=== PATIENT | male | born 1975 | race Caucasian/White ===

== ENCOUNTER 2021-01-10 00:27 | Emergency (ER) | payer SELFPAY ==
[2021-01-10 00:58] LABS: Basophils % 0.5 % (0-1.3); Hematocrit 39.7 % (39.6-49.0); Lymphocytes % 22.7 % (15.3-44.8); MPV 8.8 fL (7.6-11.3); RBC Red Blood Cell Count 4.35 M/uL (4.33-5.43)
[2021-01-10 01:00] LABS: Protime INR 1.02
[2021-01-10 01:16] LABS: ALT/SGPT 65 U/L (12-78); AST/SGOT 106 U/L (15-37); Albumin 3.4 g/dL (3.4-5.0); Alkaline Phosphatase 76 U/L (45-117); BUN Blood Urea Nitrogen 14 mg/dL (7-18); Bicarbonate 30 mmol/L (21-32); Bilirubin Direct 0.2 mg/dL (0-0.2); Bilirubin Total 0.8 mg/dL (0.2-1.0); Glucose Level 124 mg/dL (74-106); Lipase 128 U/L (73-393); Potassium 3.9 mmol/L (3.5-5.1); Protein, Total 7.2 g/dL (6.4-8.2); Sodium Level 135 mmol/L (136-145)
[2021-01-10 01:32] LABS: Barbiturates NEGATIVE (NEGATIVE); Benzodiazepines NEGATIVE (NEGATIVE); Cocaine NEGATIVE (NEGATIVE); METHAMPHETAM NEGATIVE (NEGATIVE); Methadone NEGATIVE (NEGATIVE); Opiates NEGATIVE (NEGATIVE); Phencyclidine NEGATIVE (NEGATIVE); THC Cannibis NEGATIVE (NEGATIVE)
--- NOTE | 2021-01-10 01:32 | EDPHYS ---
Physician Documentation [facility] Name: Bob Cuenca Age: 45 yrs Sex: Male : 1975 Arrival Date: 01/10/2021 Time: 00:29 Bed 8 Private MD: CARLEE Physician Tristan El HPI: 01/10 01:23 This 45 yrs old Male presents to ER via EMS with complaints of vomiting and saray possible overdose. 01:23 The patient presents to the emergency department with nausea, vomiting, that is saray intermittent. Onset: The symptoms/episode began/occurred just prior to arrival. Possible causes: unknown. The symptoms are aggravated by nothing. The symptoms are alleviated by nothing. psych hx. Severity of symptoms: At their worst the symptoms were mild in the emergency department the symptoms are unchanged. The patient has experienced similar episodes in the past, a few times. Historical: - Allergies: 01:15 No Known Allergies; ea - PMHx: 01:15 Bipolar disorder; ea - PSHx: 01:15 back surgery; ea - Immunization history:: Adult Immunizations unknown. - Social history:: Smoking status: unknown. ROS: 01:26 Constitutional: Negative for fever, chills, and weight loss, Eyes: Negative for injury, saray pain, redness, and discharge, ENT: Negative for injury, pain, and discharge, Neck: Negative for injury, pain, and swelling, Cardiovascular: Negative for chest pain, palpitations, and edema, Respiratory: Negative for shortness of breath, cough, wheezing, and pleuritic chest pain, Back: Negative for injury and pain, : Negative for injury, bleeding, discharge, and swelling, MS/Extremity: Negative for injury and deformity, Skin: Negative for injury, rash, and discoloration, Neuro: Negative for headache, weakness, numbness, tingling, and seizure, Psych: Negative for depression, anxiety, suicide ideation, homicidal ideation, and hallucinations, Allergy/Immunology: Negative for hives, rash, and allergies, Endocrine: Negative for neck swelling, polydipsia, polyuria, polyphagia, and marked weight changes, Hematologic/Lymphatic: Negative for swollen nodes, abnormal bleeding, and unusual bruising. 01:26 Abdomen/GI: Positive for nausea and vomiting. Exam: :26 Constitutional: This is a well developed, well nourished patient who is awake, alert, saray and in no acute distress. Head/Face: Normocephalic, atraumatic. Eyes: Pupils equal round and reactive to light, extra-ocular motions intact. Lids and lashes normal. Conjunctiva and sclera are non-icteric and not injected. Cornea within normal limits. Periorbital areas with no swelling, redness, or edema. ENT: Nares patent. No nasal discharge, no septal abnormalities noted. Tympanic membranes are normal and external auditory canals are clear. Oropharynx with no redness, swelling, or masses, exudates, or evidence of obstruction, uvula midline. Mucous membranes moist. Neck: Trachea midline, no thyromegaly or masses palpated, and no cervical lymphadenopathy. Supple, full range of motion without nuchal rigidity, or vertebral point tenderness. No Meningismus. Chest/axilla: Normal chest wall appearance and motion. Nontender with no deformity. No lesions are appreciated. Cardiovascular: Regular rate and rhythm with a normal S1 and S2. No gallops, murmurs, or rubs. Normal PMI, no JVD. No pulse deficits. Respiratory: Lungs have equal breath sounds bilaterally, clear to auscultation and percussion. No rales, rhonchi or wheezes noted. No increased work of breathing, no retractions or nasal flaring. Abdomen/GI: Soft, non-tender, with normal bowel sounds. No distension or tympany. No guarding or rebound. No evidence of tenderness throughout. Back: No spinal tenderness. No costovertebral tenderness. Full range of motion. Skin: Warm, dry with normal turgor. Normal color with no rashes, no lesions, and no evidence of cellulitis. MS/ Extremity: Pulses equal, no cyanosis. Neurovascular intact. Full, normal range of motion. Neuro: Awake and alert, GCS 15, oriented to person, place, time, and situation. Cranial nerves II-XII grossly intact. Motor strength 5/5 in all extremities. Sensory grossly intact. Cerebellar exam normal. Normal gait. Psych: Awake, alert, with orientation to person, place and time. Behavior, mood, and affect are within normal limits. 01:26 : Exam negative for acute changes, CVA tenderness, is absent, Male external genitalia: normal, Bladder: is normal. Vital Signs: 01:37 BP 141 / 91; Pulse 71; Resp 16; Temp 97.8; Pulse Ox 98% ; ea 02:40 BP 125 / 70; Pulse 70; Resp 16; Pulse Ox 99% ; rr5 MDM: 00:43 Patient medically screened. saray 01:28 Differential diagnosis: Nonspecific abd pain, gastritis, viral gastroenteritis, saray gastroenteritis. Differential Diagnosis altered mental status. Data reviewed: vital signs, nurses notes, lab test result(s), EKG. Data interpreted: youth nutritional monitor: rate is 85 beats/min, rhythm is regular, Pulse oximetry: on room air is 100 %. Test interpretation: by ED physician or midlevel provider: ECG. Counseling: I had a detailed discussion with the patient and/or guardian regarding: the historical points, exam findings, and any diagnostic results supporting the discharge/admit diagnosis, lab results. 01/10 00:40 Order name: Acetaminophen 01/10 00:40 Order name: Basic Metabolic Panel 01/10 00:40 Order name: CBC with Diff; Complete Time: 01:07 01/10 00:40 Order name: ETOH Level; Complete Time: 01:30 01/10 00:40 Order name: Hepatic Function 01/10 00:40 Order name: PT-INR; Complete Time: 01:07 01/10 00:40 Order name: Ptt, Activated; Complete Time: 01:07 01/10 00:40 Order name: Salicylate; Complete Time: 01:30 01/10 00:40 Order name: Urine Drug Screen; Complete Time: 01:41 01/10 00:52 Order name: Lipase [facility] 01/10 01:10 Order name: Urine Dipstick--Ancillary (enter results) tt3 01/10 02:03 Order name: Troponin (Emerg Dept Use Only) [facility] 01/10 00:40 Order name: EKG; Complete Time: 00:41 01/10 00:40 Order name: EKG - Nurse/Tech; Complete Time: 01:16 ea 01/10 00:40 Order name: IV Saline Lock; Complete Time: :16 ea 01/10 00:40 Order name: Labs collected and sent; Complete Time: 01:16 ea 01/10 00:40 Order name: Urine Dipstick-Ancillary (obtain specimen); Complete Time: 01:16 ea Administered Medications: 01:36 Drug: NS 0.9% 1000 ml Route: IV; Rate: 1 bolus; Site: right forearm; ea 02:40 Follow up: Response: No adverse reaction; IV Status: Completed infusion; IV Intake: rr5 1000ml Disposition: 01/10/21 01:31 Discharged to Home. Impression: Bipolar disorder. - Condition is Stable. - Discharge Instructions: Bipolar Disorder, Nausea and Vomiting, Adult. - Prescriptions for Zofran 4 mg Oral Tablet - take 1 tablet by ORAL route every 12 hours As needed; 14 tablet. - Medication Reconciliation Form, Thank You Letter, Antibiotic Education, Prescription Opioid Use form. - Follow up: Private Physician; When: 2 - 3 days; Reason: Recheck today's complaints, Continuance of care, Re-evaluation by your physician. Follow up: Brijesh Mejia; When: 2 - 3 days; Reason: Recheck today's complaints, Continuance of care, Re-evaluation by your physician. - Problem is new. - Symptoms have improved. Signatures: Dispatcher [employer] [facility] Te Suárez RN RN sg Anderson, Corey, MD MD cha Antunez, Elena, RN RN ea Roque, Raymond RN rr5 Corrections: (The following items were deleted from the chart) 00:52 00:43 LIPASE+C.LAB.BRZ ordered. [facility] 02:03 01:42 TROPONIN (EMERG DEPT USE ONLY)+C.LAB.BRZ ordered. [facility] 02:47 01:31 01/10/2021 01:31 Discharged to Home. Impression: Bipolar disorder. Condition is sg Stable. Discharge Instructions: Bipolar Disorder, Nausea and Vomiting, Adult. Prescriptions for Zofran 4 mg Oral Tablet - take 1 tablet by ORAL route every 12 hours As needed; 14 tablet. and Forms are Medication Reconciliation Form, Thank You Letter, Antibiotic Education, Prescription Opioid Use. Follow up: Private Physician; When: 2 - 3 days; Reason: Recheck today's complaints, Continuance of care, Re-evaluation by your physician. Follow up: Brijesh Mejia; When: 2 - 3 days; Reason: Recheck today's complaints, Continuance of care, Re-evaluation by your physician. Problem is new. Symptoms have improved. saray
--- NOTE | 2021-01-10 01:32 | ER ---
Nurse's Notes [facility] Name: Bob Cuenca Age: 45 yrs Sex: Male : 1975 Arrival Date: 01/10/2021 Time: 00:29 Bed 8 Private MD: Diagnosis: Bipolar disorder Presentation: 01/10 00:40 Chief complaint: EMS states: Toned out to pt's apartment, friend called reported pt was ea complaining of nausea, vomiting and confusion. Friend reported pt might have taken an uknown substance, pt was unable to recall the type of drug he took. Coronavirus screen: At this time, the client does not indicate any symptoms associated with coronavirus-19. Ebola Screen: No symptoms or risks identified at this time. Initial Sepsis Screen: Does the patient meet any 2 criteria? No. Patient's initial sepsis screen is negative. Does the patient have a suspected source of infection? No. Patient's initial sepsis screen is negative. Risk Assessment: Do you want to hurt yourself or someone else? Patient reports no desire to harm self or others. Onset of symptoms was January 10, 2021. 00:40 Method Of Arrival: EMS: [facility] ea 00:40 Acuity: MALIA 3 ea Historical: - Allergies: 01:15 No Known Allergies; ea - PMHx: 01:15 Bipolar disorder; ea - PSHx: 01:15 back surgery; ea - Immunization history:: Adult Immunizations unknown. - Social history:: Smoking status: unknown. Screenin:43 Abuse screen: Denies threats or abuse. Nutritional screening: No deficits noted. ea Tuberculosis screening: No symptoms or risk factors identified. Fall Risk IV access (20 points). Assessment: 01:15 General: Appears in no apparent distress. Behavior is cooperative, restless. Pain: ea Complains of pain in back. Neuro: Level of Consciousness is awake, alert, obeys commands, Oriented to person, place, time. Cardiovascular: Patient's skin is warm and dry. Respiratory: Airway is patent Respiratory effort is even, unlabored, Respiratory pattern is regular, symmetrical. Derm: Skin is pink, warm \T\ dry. 02:00 Reassessment: Patient appears in no apparent distress at this time. resting eyes closed rr5 breathing spontaneously at room air. 02:45 Reassessment: Patient appears in no apparent distress at this time. Patient is alert, rr5 oriented x 3, equal unlabored respirations, skin warm/dry/pink. discharge instruction given and explained to director social without complaints made. Vital Signs: 01:37 BP 141 / 91; Pulse 71; Resp 16; Temp 97.8; Pulse Ox 98% ; ea 02:40 BP 125 / 70; Pulse 70; Resp 16; Pulse Ox 99% ; rr5 ED Course: 00:29 Patient arrived in ED. sg 00:42 Triage completed. ea 00:43 Tristan El MD is Attending Physician. saray 00:43 Inserted saline lock: 20 gauge in right forearm, using aseptic technique. Blood ea collected. 00:43 Arm band placed on right wrist. Patient placed in an exam room, on a stretcher, on ea pulse oximetry. 00:44 Serenity Kelly, RN is Primary Nurse. ea 00:44 Patient has correct armband on for positive identification. Bed in low position. Call ea light in reach. Side rails up X2. 01:31 Brijesh Mejia MD is Referral Physician. saray 02:45 No provider procedures requiring assistance completed. IV discontinued, intact, rr5 bleeding controlled, No redness/swelling at site. Pressure dressing applied. Administered Medications: 01:36 Drug: NS 0.9% 1000 ml Route: IV; Rate: 1 bolus; Site: right forearm; ea 02:40 Follow up: Response: No adverse reaction; IV Status: Completed infusion; IV Intake: rr5 1000ml Intake: 02:40 IV: 1000ml; Total: 1000ml. rr5 Outcome: 01:31 Discharge ordered by . saray 02:45 Discharged to home via wheelchair, with friend. rr5 02:45 Condition: stable 02:45 Discharge instructions given to patient, friend, Instructed on discharge instructions, Demonstrated understanding of instructions, follow-up care, medications, Prescriptions given X 1. 02:47 Patient left the ED. sg Signatures: Te Suárez RN RN sg Anderson, Corey, MD MD cha Antunez, Elena, RN Farzad Jordan ea RN RN rr5
[2021-01-10] MEDS ORDERED: NA CHLORIDE 0.9% 1,000 ML ONE (01:40)
[2021-01-10 02:21] LABS: Troponin (Emerg Dept Use Only) < 0.02 ng/mL (0.0-0.045)
[2021-01-10 03:37] LABS: Urine Blood TRACE (NEG); Urine Glucose NEGATIVE (NEG); Urine Protein NEGATIVE (NEG); Urine Specific Gravity 1.015 (1.005-1.030); Urine pH 7.5 (5.0-7.0)
[2021-01-10 07:32] VITALS: BP 141/91; TEMP 97.8; O2SAT 98
--- NOTE | 2021-01-10 14:09 | EKG ---
Test Date: 2021-01-10 Test Time: 01:31:37 Pet Ambassador: TANYA MEASUREMENT RESULTS: Intervals: Rate: 70 PA: 148 QRSD: 106 QT: 420 QTc: 453 [place]: P: 59 PA: 148 QRS: 46 T: 68 INTERPRETIVE STATEMENTS: Normal sinus rhythm Possible Anterolateral infarct, age undetermined Abnormal ECG No previous ECG available for comparison Electronically Signed On 01-10-21 14:08:51 HANDLE BAR ASSEMBLER by William Maguire
== END 2021-01-10 02:47 | disposition home or self-care (01) ==
LOC: ER 00:27
DX: F31.9 Bipolar disorder, unspecified (principal)
CPT/HCPCS: 36415; 80048; 80076; 80307; 80320; 80329; 81003; 83690; 84484; 85025; 85610; 85730; 93005; 96360; 99284; J7030

== ENCOUNTER 2021-03-18 13:14 | Emergency (ER) | payer SELFPAY ==
--- OUTSIDE RECORDS SUMMARY | 2021-03-18 13:19 | XMS REPORT | Continuity of Care Document ---
:[address] [facility] t Address [address] [place] [address] Care Team Providers Name Role Phone Asked, Pcp Primary Care Physician Unavailable Petra Sparrow Attending Clinician Unavailable Petra Webb Attending Clinician Unavailable Maribel Attending Clinician Unavailable Jefe Attending Clinician Unavailable Sly Amador Attending Clinician Unavailable Ashok Attending Clinician Unavailable Cande Dove Attending Clinician Unavailable Papo Attending Clinician Unavailable Shelley GREENE Attending Clinician Unavailable Advance Directives Directive Decision Effective Date Termination Date Comments Sour ce Yes N/A [facility] Problems Condition Condition Condition Status Onset Resolution Last Treating Co mments Source Name Details Category Date Date Treatment Clinician Date Accidental Accidental Disease Active [place] ingestion ingestion 3-14 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 55251-2 Active 2007-11-22 Mental Mental - 09:49:09 Retardatio Retardatio 00:00: n nOnset: 00 22-Nov-[place] [address]-5 Active 2006-112007-10-22 Severity, Severity, 2- 18:10:37 Unspecifie Unspecifie 00:00: d dOnset: 00 22-Oct-2007 None NoneOnset: 17984-8 Active 2004-2005-02-1002-10 14:05:25 5 00:00: 00 Mental Mental 57681-4 Active 2002-2003-11-07 Retardatn Retardatn 01-08 10:54:56 Severty Severty 00:00: Unsp UnspOnset: 00 3 None NoneOnset: 42077-5 Active 2001-2002-01-0901-09 13:26:51 2 00:00: 00 Mental Mental 87788-0 Resolve 2006-112007-11-22 2007-11-22 Retardatn Retardatn d 09:49:22 09:49:25 Severty Severty 00:00: Unsp UnspOnset: 00 7Status: Resolved as of 22-Nov-2007 9:49 Mod Mental Mod Mental 77740-1 Resolve 2007-11-22 2007-11-22 Retardatio Retardatio d 11-21 09:48:47 09:48:50 n nOnset: 00:00: 21-Nov-2007 00 Status: Resolved as of 22-Nov-2007 9:48 Allergies, Adverse Reactions, Alerts Allergy Allergy Status Severity Reaction(s) Onset Inactive Treating Comm ents Source Name Type Date Date Clinician Unable DA Active U 2020-0 [facility] to 3-13 Assess 00:00: 00 No Known DA [facility] Allergie 00:00: s 00 Unable DA Active U 2020-0 [facility] to 3-06 Assess 00:00: 00 Unable DA Active U 2020-0 [facility] to - Assess 00:00: 00 fluPHENA Allergy Active [place] Zine risperiD Allergy Active [place]ston[place] ONE Haldol Allergy Active [place]stonia thiorida Allergy Active Dystonia zine Social History Social Habit Start Date Stop Date Quantity Comments Source Alcohol intake 2018-01-26 2018-01-26 Current [facility] thodist 00:00:00 00:00:00 non-drinker of alcohol (finding) Sex Ass[birth year] [facility] ethodist 00:00:00 00:00:00 Smoking Status Start Date Stop Date Source Tobacco smoking consumption [facility] unknown Never smoker [facility] Medications Ordered Filled Start Stop Current Ordering Indication Dosage Frequency Signature Comments Components Source Medication Medication Date Date Medication? Clinician (SIG) Name Name Frannie 600 No [id number] 1{tab(s Motrin 600 mg oral 01-15 )} mg oral tablet 11:35: tablet; 1 59 tab(s) orally every 6 hours, As Needed painQuanti ty: 0 Refills: 0Ordered: 15-Jan-2021 Mila StephenGeneric Substituti on Allowed gabapentin No [id number] 1{cap(s gabapentin 300 mg oral 01-15 )} 300 mg capsule 11:35: oral 29 capsule; 1 cap(s) orally 3 times a dayQuantit y: 0 Refills: 0Ordered: 15-Jan-2021 Mila StephenGeneric Substituti on Allowed TEGretol No [id number] 300mg TEGretol; 01-15 300 11:35: milligram( 00 s) orally 2 times a dayQuantit y: 0 Refills: 0Ordered: 15-Jan-2021 Mila StephenGeneric Substituti on Allowed Effexor XR No [id number] 1{cap(s Effexor XR 75 mg oral 01-15 )} 75 mg oral capsule, 11:34: capsule, extended 26 extended release release; 1 cap(s) orally once a dayQuantit y: 0 Refills: 0Ordered: 15-Jan-2021 Mila StephenGeneric Substituti on Allowed acetaminoph Yes 650mg Q6H Take 2 Mesha ston en 3-14 tablets Methodi (TYLENOL) 00:00: ([address] 325 MG 00 total) by tablet mouth every 6 (six) hours as needed for mild pain for up to 20 doses. Benadryl 50 2006-11- No [id number] 0 Benadryl mg PO now 11-14 349310 50 mg PO 02:46: 02:46 nowQuantit 07 :07 y: 0 Refills: 0Ordered: Audrey Bird : 7 End: 7Generic Substituti on Allowed Ambien 10 2006-11- No [id number] 0 Ambien 10 mg PO at 11-14 596547 mg PO at bedtime, 02:44: 02:44 bedtime, NPC 04 :04 NPCQuantit y: 0 Refills: 0Ordered: Audrey Birdrt : 7 End: 7Status: OtherGener ic Substituti on Allowed Glyburide 5 2006-11 2007- No [id number] 0 Glyburide mg PO every 11-14 145013 5 mg PO morning 02:43: 02:43 every 33 :33 morningQua ntity: 0 Refills: 0Ordered: Audrey Birdtart : 7 End: 7Generic Substituti on Allowed Levothyroxi 2006-11- No [id number] 0 Levothyrox ne 100 mcg 11-14 725977 ine 100 PO every 02:42: 02:42 mcg PO morning - 28 :28 every NPC morning - NPCQuantit y: 0 Refills: 0Ordered: Audrey Birdtart : 7 End: 7Generic Substituti on Allowed Ativan 2 mg 2006-11- No [id number] 0 Ativan 2 PO now- NPC 11-14 853023 mg PO now- 02:41: 02:41 NPCQuantit 53 :53 y: 0 Refills: 0Ordered: Audrey Birdtart : 7 End: 7Generic Substituti on Allowed Seroquel 2006-11- No [id number] 0 Seroquel 600 mg 11-14 543478 600 mg daily at 02:40: 02:40 daily at bedtime- 54 :54 bedtime- NPC NPCQuantit y: 0 Refills: 0Ordered: Audrey Birdrt : 7 End: 7Status: OtherGener ic Substituti on Allowed Seroquel 2006-11- No [id number] 0 Seroquel 200 mg PO 11-14 772025 200 mg PO three times 02:36: 02:36 three daily- NPC 39 :39 times daily- NPCQuantit y: 0 Refills: 0Ordered: 7Audrey De Leónrt : 7 End: 7Status: OtherGener ic Substituti on Allowed Celebrex 2006-11- No [id number] 0 Celebrex 100 mg 11-14 [id number] 100 mg capsules, 02:35: 02:35 capsules, take one 51 :51 take one capsule by capsule by mouth every mouth 8 hours as every 8 needed, hours as home needed, medications home medication sQuantity: 0 Refills: 0Ordered: 7Audrey De Leónrt : 7 End: 7Status: OtherGener ic Substituti on Allowed Seroquel 2006-11- No [id number] 0 Seroquel 200 mg 11-14 [id number] 200 mg tablets, 02:34: 02:34 tablets, take 1 32 :32 take 1 tablet by tablet by mouth three mouth times daily three and three times tablets daily and every at three bedtime - tablets home every at medications bedtime - home medication sQuantity: 0 Refills: 0Ordered: 7Audrey De Leónrt : 7 End: 7Status: OtherGener ic Substituti on Allowed Strattera 2006-11- No [id number] 0 Strattera 40 mg 11-14 101128 40 mg capsules, 02:33: 02:33 capsules, take 2 35 :35 take 2 capsule by capsule by mouth every mouth day - home every day medications - home medication sQuantity: 0 Refills: 0Ordered: Audrey Birdrt : 7 End: 7Status: OtherGener ic Substituti on Allowed Clonidine 2006-11 2007- No [id number] 0 Clonidine 0.2 mg 11-14 145753 0.2 mg tablets, 02:32: 02:32 tablets, take one 15 :15 take one tablet by tablet by mouth four mouth four times daily times - home daily - medications home medication sQuantity: 0 Refills: 0Ordered: 7SarthakAudrey Shefalirt : 7 End: 7Status: OtherGener ic Substituti on Allowed Levothyroxi 2006-11- No [id number] 0 Levothyrox ne 100mcg 12-23 150613 ine 14:31: 14:31 100mcg; 39 :39 home 1 orally, dailyQuant ity: 0 Refills: 0Ordered: 22-Oct-2007 Mandy Ozuna FStart: 22-Oct-2007 End: 22-Oct-2007 Status: Discontinu edGeneric Substituti on Allowed Glyburide 2006-11- No [id number] 0 Glyburide 5mg 12-23 666159 5mg; home 14:31: 14:31 1 orally , 11 :11 dailyQuan tity: 0 Refills: 0Ordered: 22-Oct-2007 Mandy Ozuna FStart: 22-Oct-2007 End: 22-Oct-2007 Status: Discontinu edGeneric Substituti on Allowed Actos 15mg 2006-11- No [id number] 0 Actos 12-23 865869 15mg; home 14:30: 14:30 1 orally 38 :38 twice dailyQuant ity: 0 Refills: 0Ordered: 22-Oct-2007 Mandy Ozuna FStart: 22-Oct-2007 End: 22-Oct-2007 Status: Discontinu edGeneric Substituti on Allowed Seroquel 2006-11- No [id number] 0 Seroquel 400mg 12-23 292617 400mg; 14:30: 14:30 home 1 01 :01 orally at bedtimeQua ntity: 0 Refills: 0Ordered: 22-Oct-2007 Mandy Ozuna FStart: 22-Oct-2007 End: 22-Oct-2007 Status: Discontinu edGeneric Substituti on Allowed Seroquel 2006-11 2007- No [id number] 0 Seroquel 200mg 12-23 552702 200mg; 14:29: 14:29 home 1 41 :41 orally every morningQua ntity: 0 Refills: 0Ordered: 22-Oct-2007 Mandy Ozuna FStart: 22-Oct-2007 End: 22-Oct-2007 Status: Discontinu edGeneric Substituti on Allowed Clonazepam 2006-11 2007- No [id number] 0 Clonazepam 1mg 12-23 190026 1mg; home 14:29: 14:29 1 orally 18 :18 twice dailyQuant ity: 0 Refills: 0Ordered: 22-Oct-2007 Mandy Ozuna FStart: 22-Oct-2007 End: 22-Oct-2007 Status: Discontinu edGeneric Substituti on Allowed Trileptal 2006-11 2007- No [id number] 0 Trileptal 600mg 12-23 833747 600mg; 14:28: 14:28 home 1 46 :46 orally twice dailiyQuan tity: 0 Refills: 0Ordered: 22-Oct-2007 Mandy Ozuna FStart: 22-Oct-2007 End: 22-Oct-2007 Status: Discontinu edGeneric Substituti on Allowed Klonopin 2006-11 2007- No [id number] 0 Klonopin 1mg 12-23 145752 1mg; npc 1 14:27: 14:27 orally 40 :40 0900 10/22Quanti ty: 0 Refills: 0Ordered: 22-Oct-2007 Mandy Ozuna FStart: 22-Oct-2007 End: 22-Oct-2007 Status: Discontinu edGeneric Substituti on Allowed Seroquel 2006-11 2007- No [id number] 0 Seroquel 200mg 12-23 754473 200mg; npc 14:27: 14:27 1 orally 16 :16 0900 10/22Quanti ty: 0 Refills: 0Ordered: 22-Oct-2007 Mandy Ozuna FStart: 22-Oct-2007 End: 22-Oct-2007 Status: Discontinu edGeneric Substituti on Allowed Ativan 2mg 2006-11 2007- No [id number] 0 Ativan 12-23 625730 2mg; npc 1 14:26: 14:26 oraly 0900 55 :55 12Quant ity: 0 Refills: 0Ordered: 22-Oct-2007 Mandy Ozuna FStart: 22-Oct-2007 End: 22-Oct-2007 Status: Discontinu edGeneric Substituti on Allowed Levothyroxi 2006-11 2007- No [id number] 0 Levothyrox ne 100mcg 12-23 585251 ine 14:26: 14:26 100mcg; 10 :10 npc 1 orally 1000 10/22Quanti ty: 0 Refills: 0Ordered: 22-Oct-2007 Mandy Ozuna FStart: 22-Oct-2007 End: 22-Oct-2007 Status: Discontinu edGeneric Substituti on Allowed Trileptal 2006-11 2007- No [id number] 0 Trileptal 600mg 12-23 442781 600mg; npc 14:25: 14:25 1 orally 51 :51 0900 10/22Quanti ty: 0 Refills: 0Ordered: 22-Oct-2007 Mandy Ozuna FStart: 22-Oct-2007 End: 22-Oct-2007 Status: Discontinu edGeneric Substituti on Allowed Glyburide 2006-11 2007- No [id number] 0 Glyburide 5mg 12-23 480198 5mg; npc 1 14:25: 14:25 orally 21 :21 0900 10/22Quanti ty: 0 Refills: 0Ordered: 22-Oct-2007 Mandy Ozuna FStart: 22-Oct-2007 End: 22-Oct-2007 Status: Discontinu edGeneric Substituti on Allowed Trileptal 2006-11 2007- No [id number] 0 Trileptal 600mg 12-23 303529 600mg; 1 14:24: 14:24 orally 34 :34 0900 10/22Quanti ty: 0 Refills: 0Ordered: 22-Oct-2007 Mandy Ozuna FStart: 22-Oct-2007 End: 22-Oct-2007 Status: Discontinu edGeneric Substituti on Allowed Immunizations Ordered Immunization Filled Immunization Date Status Commen ts Source Name Name Tdap 2018-01-26 [facility] 00:00:00 Taoist Vital Signs Vital Name Observation Time Observation Value Comments Source 02 Sat by Pulse Oximetry 2021-01-27 13:42:43 99 /min Body Mass Index 2021-01-27 13:42:43 23.1 Height 2021-01-27 13:42:43 187.96\S\74 Pulse Rate 2021-01-27 13:42:43 80 /min Respiratory Rate 2021-01-27 13:42:43 20 /min Temperature 2021-01-27 13:42:43 36.8\S\98.2 Weight 2021-01-27 13:42:43 90094.626\S\2880 Weight Measurement Method 2021-01-27 13:42:43 Estimated by Patient 02 Sat by Pulse Oximetry 2021-01-25 14:51:01 99 /min Body Mass Index 2021-01-25 14:51:01 23.1 Height 2021-01-25 14:51:01 187.96\S\74 Pulse Rate 2021-01-25 14:51:01 80 /min Respiratory Rate 2021-01-25 14:51:01 20 /min Temperature 2021-01-25 14:51:01 36.8\S\98.2 Weight 2021-01-25 14:51:01 53814.626\S\2880 Weight Measurement Method 2021-01-25 14:51:01 Estimated by Patient 02 Sat by Pulse Oximetry 2021-01-25 11:37:46 99 /min Body Mass Index 2021-01-25 11:37:46 23.1 Height 2021-01-25 11:37:46 187.96\S\74 Pulse Rate 2021-01-25 11:37:46 80 /min Respiratory Rate 2021-01-25 11:37:46 20 /min Temperature 2021-01-25 11:37:46 36.8\S\98.2 Weight 2021-01-25 11:37:46 99261.626\S\2880 Weight Measurement Method 2021-01-25 11:37:46 Estimated by Patient 02 Sat by Pulse Oximetry 2021-01-25 11:02:06 99 /min Body Mass Index 2021-01-25 11:02:06 23.1 Height 2021-01-25 11:02:06 187.96\S\74 Pulse Rate 2021-01-25 11:02:06 80 /min Respiratory Rate 2021-01-25 11:02:06 20 /min Temperature 2021-01-25 11:02:06 36.8\S\98.2 Weight 2021-01-25 11:02:06 79046.626\S\2880 Weight Measurement Method 2021-01-25 11:02:06 Estimated by Patient 02 Sat by Pulse Oximetry 2021-01-25 10:55:59 99 /min Body Mass Index 2021-01-25 10:55:59 23.1 Height 2021-01-25 10:55:59 187.96\S\74 Pulse Rate 2021-01-25 10:55:59 80 /min Respiratory Rate 2021-01-25 10:55:59 20 /min Temperature 2021-01-25 10:55:59 36.8\S\98.2 Weight 2021-01-25 10:55:59 37610.626\S\2880 Weight Measurement Method 2021-01-25 10:55:59 Estimated by Patient 02 Sat by Pulse Oximetry 2021-01-25 10:46:19 99 /min Body Mass Index 2021-01-25 10:46:19 23.1 Height 2021-01-25 10:46:19 187.96\S\74 Pulse Rate 2021-01-25 10:46:19 80 /min Respiratory Rate 2021-01-25 10:46:19 20 /min Temperature 2021-01-25 10:46:19 36.8\S\98.2 Weight 2021-01-25 10:46:19 51309.626\S\2880 Weight Measurement Method 2021-01-25 10:46:19 Estimated by Patient 02 Sat by Pulse Oximetry 2021-01-25 10:24:57 99 /min Body Mass Index 2021-01-25 10:24:57 23.1 Height 2021-01-25 10:24:57 187.96\S\74 Pulse Rate 2021-01-25 10:24:57 80 /min Respiratory Rate 2021-01-25 10:24:57 20 /min Temperature 2021-01-25 10:24:57 36.8\S\98.2 Weight 2021-01-25 10:24:57 88581.626\S\2880 Weight Measurement Method 2021-01-25 10:24:57 Estimated by Patient 02 Sat by Pulse Oximetry 2021-01-25 10:21:23 99 /min Body Mass Index 2021-01-25 10:21:23 23.1 Height 2021-01-25 10:21:23 187.96\S\74 Pulse Rate 2021-01-25 10:21:23 80 /min Respiratory Rate 2021-01-25 10:21:23 20 /min Temperature 2021-01-25 10:21:23 36.8\S\98.2 Weight 2021-01-25 10:21:23 13578.626\S\2880 Weight Measurement Method 2021-01-25 10:21:23 Estimated by Patient 02 Sat by Pulse Oximetry 2021-01-25 10:07:08 99 /min Body Mass Index 2021-01-25 10:07:08 23.1 Height 2021-01-25 10:07:08 187.96\S\74 Pulse Rate 2021-01-25 10:07:08 80 /min Respiratory Rate 2021-01-25 10:07:08 20 /min Temperature 2021-01-25 10:07:08 36.8\S\98.2 Weight 2021-01-25 10:07:08 40388.626\S\2880 Weight Measurement Method 2021-01-25 10:07:08 Estimated by Patient WEIGHT 2021-01-25 10:03:00 81.082949 kg HEIGHT 2021-01-25 10:03:00 187.96 cm Respiratory 2021-01-24 18:55:56 No respiratory distress /min 02 Sat by Pulse Oximetry 2021-01-24 18:55:56 96 /min Body Mass Index 2021-01-24 18:55:56 18.5 Height 2021-01-24 18:55:56 185.42\S\73 Pulse Rate 2021-01-24 18:55:56 97 /min Respiratory Rate 2021-01-24 18:55:56 16 /min Temperature 2021-01-24 18:55:56 36.9\S\98.4 Weight 2021-01-24 18:55:56 23882.932\S\2240 Weight Measurement Method 2021-01-24 18:55:56 Estimated by Patient 02 Sat by Pulse Oximetry 2021-01-20 12:48:37 99 /min Body Mass Index 2021-01-20 12:48:37 24.8 Height 2021-01-20 12:48:37 185\S\72.83 Pulse Rate 2021-01-20 12:48:37 99 /min Respiratory Rate 2021-01-20 12:48:37 18 /min Temperature 2021-01-20 12:48:37 37\S\98.6 Weight 2021-01-20 12:48:37 88648\S\2998.287 02 Sat by Pulse Oximetry 2021-01-18 07:53:11 99 /min Body Mass Index 2021-01-18 07:53:11 24.8 Height 2021-01-18 07:53:11 185\S\72.83 Pulse Rate 2021-01-18 07:53:11 99 /min Respiratory Rate 2021-01-18 07:53:11 18 /min Temperature 2021-01-18 07:53:11 37\S\98.6 Weight 2021-01-18 07:53:11 57729\S\2998.287 WEIGHT 2021-01-18 07:51:00 85 kg HEIGHT 2021-01-18 07:51:00 185 cm 02 Sat by Pulse Oximetry 2021-01-18 05:49:18 99 /min Body Mass Index 2021-01-18 05:49:18 24.8 Height 2021-01-18 05:49:18 185\S\72.83 Pulse Rate 2021-01-18 05:49:18 90 /min Respiratory Rate 2021-01-18 05:49:18 18 /min Weight 2021-01-18 05:49:18 18925\S\2998.287 02 Sat by Pulse Oximetry 2021-01-18 04:25:42 98 /min Body Mass Index 2021-01-18 04:25:42 24.8 Height 2021-01-18 04:25:42 185\S\72.83 Pulse Rate 2021-01-18 04:25:42 103 /min Respiratory Rate 2021-01-18 04:25:42 18 /min Weight 2021-01-18 04:25:42 85752\S\2998.287 02 Sat by Pulse Oximetry 2021-01-18 03:14:17 98 /min Body Mass Index 2021-01-18 03:14:17 24.8 Height 2021-01-18 03:14:17 185\S\72.83 Pulse Rate 2021-01-18 03:14:17 103 /min Respiratory Rate 2021-01-18 03:14:17 18 /min Weight 2021-01-18 03:14:17 17389\S\2998.287 02 Sat by Pulse Oximetry 2021-01-18 01:11:50 98 /min Body Mass Index 2021-01-18 01:11:50 24.8 Height 2021-01-18 01:11:50 185\S\72.83 Pulse Rate 2021-01-18 01:11:50 103 /min Respiratory Rate 2021-01-18 01:11:50 18 /min Weight 2021-01-18 01:11:50 17385\S\2998.287 02 Sat by Pulse Oximetry 2021-01-18 01:03:41 98 /min Body Mass Index 2021-01-18 01:03:41 24.8 Height 2021-01-18 01:03:41 185\S\72.83 Pulse Rate 2021-01-18 01:03:41 103 /min Respiratory Rate 2021-01-18 01:03:41 18 /min Weight 2021-01-18 01:03:41 53507\S\2998.287 02 Sat by Pulse Oximetry 2021-01-18 00:25:43 98 /min Body Mass Index 2021-01-18 00:25:43 24.8 Height 2021-01-18 00:25:43 185\S\72.83 Pulse Rate 2021-01-18 00:25:43 103 /min Respiratory Rate 2021-01-18 00:25:43 18 /min Weight 2021-01-18 00:25:43 11765\S\2998.287 02 Sat by Pulse Oximetry 2021-01-18 00:24:11 98 /min Body Mass Index 2021-01-18 00:24:11 24.8 Height 2021-01-18 00:24:11 185\S\72.83 Pulse Rate 2021-01-18 00:24:11 103 /min Respiratory Rate 2021-01-18 00:24:11 18 /min Weight 2021-01-18 00:24:11 24272\S\2998.287 02 Sat by Pulse Oximetry 2021-01-18 00:20:06 98 /min Body Mass Index 2021-01-18 00:20:06 24.8 Height 2021-01-18 00:20:06 185\S\72.83 Pulse Rate 2021-01-18 00:20:06 103 /min Respiratory Rate 2021-01-18 00:20:06 18 /min Weight 2021-01-18 00:20:06 72291\S\2998.287 WEIGHT 2021-01-18 00:18:00 85 kg HEIGHT 2021-01-18 00:18:00 185 cm 02 Sat by Pulse Oximetry 2021-01-14 08:02:00 96 /min Body Mass Index 2021-01-14 08:02:00 18.5 Height 2021-01-14 08:02:00 185.42\S\73 Pulse Rate 2021-01-14 08:02:00 97 /min Respiratory Rate 2021-01-14 08:02:00 16 /min Temperature 2021-01-14 08:02:00 36.9\S\98.4 Weight 2021-01-14 08:02:00 98347.932\S\2240 Weight Measurement Method 2021-01-14 08:02:00 Estimated by Patient Respiratory 2021-01-14 08:02:00 No respiratory distress /min Respiratory 2021-01-14 08:01:59 No respiratory distress /min Respiratory 2021-01-14 08:01:29 No respiratory distress /min 02 Sat by Pulse Oximetry 2021-01-14 08:01:29 96 /min Body Mass Index 2021-01-14 08:01:29 18.5 Height 2021-01-14 08:01:29 185.42\S\73 Pulse Rate 2021-01-14 08:01:29 97 /min Respiratory Rate 2021-01-14 08:01:29 16 /min Temperature 2021-01-14 08:01:29 36.9\S\98.4 Weight 2021-01-14 08:01:29 11114.932\S\2240 Weight Measurement Method 2021-01-14 08:01:29 Estimated by Patient Respiratory 2021-01-13 06:17:23 No respiratory distress /min 02 Sat by Pulse Oximetry 2021-01-13 06:17:23 96 /min Body Mass Index 2021-01-13 06:17:23 18.5 Height 2021-01-13 06:17:23 185.42\S\73 Pulse Rate 2021-01-13 06:17:23 97 /min Respiratory Rate 2021-01-13 06:17:23 16 /min Temperature 2021-01-13 06:17:23 36.9\S\98.4 Weight 2021-01-13 06:17:23 32807.932\S\2240 Weight Measurement Method 2021-01-13 06:17:23 Estimated by Patient Respiratory 2021-01-12 13:59:38 No respiratory distress /min 02 Sat by Pulse Oximetry 2021-01-12 13:59:38 96 /min Body Mass Index 2021-01-12 13:59:38 18.5 Height 2021-01-12 13:59:38 185.42\S\73 Pulse Rate 2021-01-12 13:59:38 97 /min Respiratory Rate 2021-01-12 13:59:38 16 /min Temperature 2021-01-12 13:59:38 36.9\S\98.4 Weight 2021-01-12 13:59:38 60456.932\S\2240 Weight Measurement Method 2021-01-12 13:59:38 Estimated by Patient Respiratory 2021-01-12 11:14:42 No respiratory distress /min 02 Sat by Pulse Oximetry 2021-01-12 11:14:42 96 /min Body Mass Index 2021-01-12 11:14:42 18.5 Height 2021-01-12 11:14:42 185.42\S\73 Pulse Rate 2021-01-12 11:14:42 97 /min Respiratory Rate 2021-01-12 11:14:42 16 /min Temperature 2021-01-12 11:14:42 36.9\S\98.4 Weight 2021-01-12 11:14:42 32756.932\S\2240 Weight Measurement Method 2021-01-12 11:14:42 Estimated by Patient 02 Sat by Pulse Oximetry 2021-01-12 11:05:02 96 /min Body Mass Index 2021-01-12 11:05:02 18.5 Height 2021-01-12 11:05:02 185.42\S\73 Pulse Rate 2021-01-12 11:05:02 97 /min Respiratory Rate 2021-01-12 11:05:02 16 /min Temperature 2021-01-12 11:05:02 36.9\S\98.4 Weight 2021-01-12 11:05:02 75047.932\S\2240 Weight Measurement Method 2021-01-12 11:05:02 Estimated by Patient Respiratory 2021-01-12 11:05:01 No respiratory distress /min 02 Sat by Pulse Oximetry 2021-01-12 07:15:05 99 /min Body Mass Index 2021-01-12 07:15:05 18.5 Height 2021-01-12 07:15:05 185.42\S\73 Pulse Rate 2021-01-12 07:15:05 113 /min Respiratory Rate 2021-01-12 07:15:05 20 /min Temperature 2021-01-12 07:15:05 37.1\S\98.8 Weight 2021-01-12 07:15:05 13772.932\S\2240 Weight Measurement Method 2021-01-12 07:15:05 Estimated by Patient 02 Sat by Pulse Oximetry 2021-01-12 06:51:11 99 /min Body Mass Index 2021-01-12 06:51:11 18.5 Height 2021-01-12 06:51:11 185.42\S\73 Pulse Rate 2021-01-12 06:51:11 113 /min Respiratory Rate 2021-01-12 06:51:11 20 /min Temperature 2021-01-12 06:51:11 37.1\S\98.8 Weight 2021-01-12 06:51:11 13460.932\S\2240 Weight Measurement Method 2021-01-12 06:51:11 Estimated by Patient 02 Sat by Pulse Oximetry 2021-01-12 06:47:38 99 /min Body Mass Index 2021-01-12 06:47:38 18.5 Height 2021-01-12 06:47:38 185.42\S\73 Pulse Rate 2021-01-12 06:47:38 113 /min Respiratory Rate 2021-01-12 06:47:38 20 /min Temperature 2021-01-12 06:47:38 37.1\S\98.8 Weight 2021-01-12 06:47:38 96712.932\S\2240 Weight Measurement Method 2021-01-12 06:47:38 Estimated by Patient WEIGHT 2021-01-12 06:43:00 63.503651 kg HEIGHT 2021-01-12 06:43:00 185.42 cm 02 Sat by Pulse Oximetry 2021-01-12 06:42:32 99 /min Pulse Rate 2021-01-12 06:42:32 130 /min Respiratory Rate 2021-01-12 06:42:32 18 /min Temperature 2021-01-12 06:42:32 37.1\S\98.8 Weight 2021-01-12 06:42:32 54625\S\2186.986 02 Sat by Pulse Oximetry 2021-01-12 06:33:54 99 /min Pulse Rate 2021-01-12 06:33:54 130 /min Respiratory Rate 2021-01-12 06:33:54 18 /min Temperature 2021-01-12 06:33:54 37.1\S\98.8 Weight 2021-01-12 06:33:54 04212\S\2186.986 02 Sat by Pulse Oximetry 2021-01-12 06:17:07 99 /min Pulse Rate 2021-01-12 06:17:07 130 /min Respiratory Rate 2021-01-12 06:17:07 18 /min Temperature 2021-01-12 06:17:07 37.1\S\98.8 Weight 2021-01-12 06:17:07 50789\S\2186.986 02 Sat by Pulse Oximetry 2021-01-12 05:57:17 99 /min Pulse Rate 2021-01-12 05:57:17 130 /min Respiratory Rate 2021-01-12 05:57:17 18 /min Temperature 2021-01-12 05:57:17 37.1\S\98.8 Weight 2021-01-12 05:57:17 66127\S\2186.986 02 Sat by Pulse Oximetry 2021-01-12 05:55:15 99 /min Pulse Rate 2021-01-12 05:55:15 130 /min Respiratory Rate 2021-01-12 05:55:15 18 /min Temperature 2021-01-12 05:55:15 37.1\S\98.8 Weight 2021-01-12 05:55:15 20955\S\2186.986 WEIGHT 2021-01-12 05:52:00 62 kg Respiratory 2021-01-08 10:42:16 No respiratory distress /min 02 Sat by Pulse Oximetry 2021-01-08 10:42:16 99 /min Body Mass Index 2021-01-08 10:42:16 20.5 Height 2021-01-08 10:42:16 187.96\S\74 Pulse Rate 2021-01-08 10:42:16 96 /min Respiratory Rate 2021-01-08 10:42:16 20 /min Temperature 2021-01-08 10:42:16 36.9\S\98.4 Weight 2021-01-08 10:42:16 99066.779\S\2560 Weight Measurement Method 2021-01-08 10:42:16 Estimated by Patient Respiratory 2021-01-08 08:51:45 No respiratory distress /min 02 Sat by Pulse Oximetry 2021-01-08 08:51:45 99 /min Body Mass Index 2021-01-08 08:51:45 20.5 Height 2021-01-08 08:51:45 187.96\S\74 Pulse Rate 2021-01-08 08:51:45 96 /min Respiratory Rate 2021-01-08 08:51:45 20 /min Temperature 2021-01-08 08:51:45 36.9\S\98.4 Weight 2021-01-08 08:51:45 44662.779\S\2560 Weight Measurement Method 2021-01-08 08:51:45 Estimated by Patient Respiratory 2021-01-06 14:40:40 No respiratory distress /min 02 Sat by Pulse Oximetry 2021-01-06 14:40:40 99 /min Body Mass Index 2021-01-06 14:40:40 20.5 Height 2021-01-06 14:40:40 187.96\S\74 Pulse Rate 2021-01-06 14:40:40 96 /min Respiratory Rate 2021-01-06 14:40:40 20 /min Temperature 2021-01-06 14:40:40 36.9\S\98.4 Weight 2021-01-06 14:40:40 58615.779\S\2560 Weight Measurement Method 2021-01-06 14:40:40 Estimated by Patient Respiratory 2021-01-06 14:33:59 No respiratory distress /min 02 Sat by Pulse Oximetry 2021-01-06 14:33:59 99 /min Body Mass Index 2021-01-06 14:33:59 20.5 Height 2021-01-06 14:33:59 187.96\S\74 Pulse Rate 2021-01-06 14:33:59 96 /min Respiratory Rate 2021-01-06 14:33:59 20 /min Temperature 2021-01-06 14:33:59 36.9\S\98.4 Weight 2021-01-06 14:33:59 97268.779\S\2560 Weight Measurement Method 2021-01-06 14:33:59 Estimated by Patient Respiratory 2021-01-06 14:02:09 No respiratory distress /min 02 Sat by Pulse Oximetry 2021-01-06 14:02:09 99 /min Body Mass Index 2021-01-06 14:02:09 20.5 Height 2021-01-06 14:02:09 187.96\S\74 Pulse Rate 2021-01-06 14:02:09 96 /min Respiratory Rate 2021-01-06 14:02:09 20 /min Temperature 2021-01-06 14:02:09 36.9\S\98.4 Weight 2021-01-06 14:02:09 94838.779\S\2560 Weight Measurement Method 2021-01-06 14:02:09 Estimated by Patient Respiratory 2021-01-06 13:52:46 No respiratory distress /min 02 Sat by Pulse Oximetry 2021-01-06 13:52:46 99 /min Body Mass Index 2021-01-06 13:52:46 20.5 Height 2021-01-06 13:52:46 187.96\S\74 Pulse Rate 2021-01-06 13:52:46 96 /min Respiratory Rate 2021-01-06 13:52:46 20 /min Temperature 2021-01-06 13:52:46 36.9\S\98.4 Weight 2021-01-06 13:52:46 73219.779\S\2560 Weight Measurement Method 2021-01-06 13:52:46 Estimated by Patient 02 Sat by Pulse Oximetry 2021-01-06 13:47:08 99 /min Body Mass Index 2021-01-06 13:47:08 20.5 Height 2021-01-06 13:47:08 187.96\S\74 Pulse Rate 2021-01-06 13:47:08 96 /min Respiratory Rate 2021-01-06 13:47:08 20 /min Temperature 2021-01-06 13:47:08 36.9\S\98.4 Weight 2021-01-06 13:47:08 63849.779\S\2560 Weight Measurement Method 2021-01-06 13:47:08 Estimated by Patient Respiratory 2021-01-06 13:47:08 No respiratory distress /min 02 Sat by Pulse Oximetry 2021-01-06 13:13:47 99 /min Body Mass Index 2021-01-06 13:13:47 20.5 Height 2021-01-06 13:13:47 187.96\S\74 Pulse Rate 2021-01-06 13:13:47 96 /min Respiratory Rate 2021-01-06 13:13:47 20 /min Temperature 2021-01-06 13:13:47 36.9\S\98.4 Weight 2021-01-06 13:13:47 51981.779\S\2560 Weight Measurement Method 2021-01-06 13:13:47 Estimated by Patient 02 Sat by Pulse Oximetry 2021-01-06 13:04:01 99 /min Body Mass Index 2021-01-06 13:04:01 20.5 Height 2021-01-06 13:04:01 187.96\S\74 Pulse Rate 2021-01-06 13:04:01 96 /min Respiratory Rate 2021-01-06 13:04:01 20 /min Temperature 2021-01-06 13:04:01 36.9\S\98.4 Weight 2021-01-06 13:04:01 46548.779\S\2560 Weight Measurement Method 2021-01-06 13:04:01 Estimated by Patient WEIGHT 2021-01-06 12:58:00 72.944176 kg HEIGHT 2021-01-06 12:58:00 187.96 cm Procedures Procedure Date / Time Performed Performing Clinician [facility] e [place] Level 2007-11-25 00:00:00 Webb, Talya Lambert Plan of Care Planned Activity Planned Date Details Comments Source Future Scheduled 2021-06-15 INFLUENZA VACCINE [facility] 00:00:00 [code = INFLUENZA VACCINE] Future Scheduled 1991 COVID-19 VACCINE [place] [facility] 00:00:00 (1) [code = COVID-19 VACCINE (1)] Future Scheduled Plan Of Treatment [facility] Test Entries Psychiatric Ctr excluded/not available [code = Plan Of Treatment Entries excluded/not available] Encounters Start End Encounter Admission Attending Care Care Encounter Source Date/Time Date/Time Type Type Clinicians Facility Department ID 2021-01-15 2021-01-15 Inpatient Andrews, 1 [facility]-3[facility]-28- [id number] [place] 11:13:00 13:43:00 Sunshine A B 77 [facility] 2007-11-13 2007-11-29 Inpatient Garrett Webb [facility]-3B-74- [id number] [place] 17:50:00 06:00:00 Talya Lambert [facility] 2007-10-22 2007-11-02 Inpatient Luis Manuel López 1 [facility]-2E-84- [id number] [place] 11:30:00 12:00:00 A 21 [facility] 2005-01-30 2005-02-11 Inpatient Jefe, 1 [facility]-2B-75- [id number] [place] 09:49:00 10:29:00 Geni A 10 [facility] 2005-01-13 2005-01-22 Recurring Perry, 1 [facility] 0000 [id number] [place] 10:16:00 09:55:00 Outpt Devon Heart 19 [facility] Psychia tric [facility] 2003-10-29 2003-11-07 Inpatient Luis Manuel López 1 [facility]-79- [id number] [place] 20:58:00 13:45:00 B 89 [facility] 2001-12-28 2002-01-10 Inpatient Luis Manuel López 1 [facility]61- [id number] [place] 11:09:00 17:00:00 A 16 [facility] 2001-08-05 2001-08-05 Recurring Pulido, 1 [facility] 0000 [id number] [place] 09:00:00 14:58:00 Outpt Osmani 03 [facility] 2001-07-06 2001-08-05 Recurring Pulido[facility] [id number] [place] 12:26:00 09:00:00 Outpt Osmani 27 [facility] 2001-06-15 2001-07-05 Inpatient Jon, 1 [facility]-3B-77- [id number] [place] 17:02:00 14:03:00 Talya Lambert A 07 [facility] Psychia [facility] 1999-09-18 1999-10-02 Inpatient Derrell, 1 [facility]-2C-14- [id number] [place] 15:54:00 10:26:00 Johnny Castellon A 95 [facility] 1995-02-15 1995-02-23 Inpatient Papo Steven 1 [facility]- [id number] [place] 15:00:00 13:00:00 A 01 [facility] 1987-08-06 1987-09-17 Inpatient RAMONA, 1 [facility]-1D-29- [id number] [place] 09:00:00 16:00:00 GENE L B 79 [facility] Results Test Description Test Time Test Comments Results Result Comments Source [place] Level 2007-11-25 12:19:28 Test Item Value Reference Range Interpretation Comme nts [place] Level (test code = 0.6 mmol/L D etection Limit = 0.1 LithiumLevel) <0.1 indicates None Detected [id number] 14:20:51 Test Item Value Reference Range Interpretation Comments Specific Cleghorn (test 1.011 code = SpecificGravity) pH (test code = pH) 7.0 Urine Color (test code Yellow = UrineColor) Appearance (test code = Clear Appearance) WBC Esterase (test code Negative = WBCEsterase) Protein,Urine (test Negative code = Protein,Urine) Glucose, Urine (test Negative code = Glucose,Urine) Ketones (test code = Negative Ketones) Occult Blood (test code Negative = OccultBlood) Bilirubin, Urine (test Negative code = Bilirubin,Urine) Urobilinogen (test code 0.2 mg/dL = Urobilinogen) Nitrite, Urine (test Negative code = Nitrite,Urine) Microscopic Exam (test NOTE : Microscopic code = MicroscopicExam) follows if indicated. Thyroid Panel with [id number] 11:22:58 Test Item Value Reference Range Interpretation Comments TSH, High Sensitivity, Serum 0.427 {uIU/mL} (test code = TSH,HighSensitivity,Serum) Thyroxine (test code = 5.4 ug/dL Thyroxine) T3 Uptake (test code = 37 % [id number]) Free Thyroxine Index (test 2.0 code = FreeThyroxineIndex) Urine Microscopic [id number] 13:09:38 Test Item Value Reference Range Interpretation Comments WBC/HPF (test code = WBC/HPF) 0-5 RBC/HPF (test code = RBC/HPF) 0-3 Epithelial Cells (non-renal) 0-10 (test code = EpithelialCells(non-renal)) Bacteria (test code = Bacteria) None seen [id number] 07:30:07 Test Item Value Reference Range Interpretation Comments Specific Cleghorn (test 1.012 code = SpecificGravity) pH (test code = pH) 7.0 Urine Color (test code Yellow = UrineColor) Appearance (test code = Clear Appearance) WBC Esterase (test code Negative = WBCEsterase) Protein,Urine (test Negative code = Protein,Urine) Glucose, Urine (test Negative code = Glucose,Urine) Ketones (test code = Negative Ketones) Occult Blood (test code Negative = OccultBlood) Bilirubin, Urine (test Negative code = Bilirubin,Urine) Urobilinogen (test code 0.2 mg/dL = Urobilinogen) Nitrite, Urine (test Negative code = Nitrite,Urine) Microscopic Exam (test NOTE : Microscopic code = MicroscopicExam) follows if indicated. Drug Screen, Urine # [id number] 12:19:53 Test Item Value Reference Interpretation Comments Range Amphetamine (test Negative code = Amphetamine) Barbiturates (test Negative code = Barbiturates) Benzodiazepines Positive (test code = Benzodiazepines) Cannabinoid (test Negative code = Cannabinoid) Cocaine Metabolite Negative (test code = CocaineMetabolite) Opiate Screen (test Negative Opiate t est code = OpiateScreen) include s Codeine, Morphine, Hydromorphon e, Hydrocodone. Phencyclidine (test Negative code = Phencyclidine) Methadone Level Negative (test code = MethadoneLevel) Propoxyphene (test Positive code = Propoxyphene) Drug Screen Comment NOTE : This assay (test code = provides a preliminary DrugScreenComment) unconfirmed analyticaltest result that may be suitable for the clinicalmanagement of patients in certain situations. [facility] programs, preliminary positivefindings should always be confirmed by an alternativemethod. Some psqw-mor-jmkepnf medications, as well asadulterants, may cause inaccurate results. Screen Onlytesting does not meet the College of [employer] PathologistsForensic Urine Drug Testing Program require-ments as aforensic urine drug test for workplace testing. Allclients must ensure that their testing program conformsto applicable state and federal laws and employmentagreements. TSH, High Sensitivity, [id number] 13:09:40 Test Item Value Reference Range Interpretation Comments TSH, High Sensitivity, Serum 0.339 {uIU/mL} (test code = TSH,HighSensitivity,Serum) [id number] 13:09:39 Test Item Value Reference Range Interpretation Comments Specific Cleghorn (test 1.010 code = SpecificGravity) pH (test code = pH) 6.5 Urine Color (test code Yellow = UrineColor) Appearance (test code = Clear Appearance) WBC Esterase (test code Negative = WBCEsterase) Protein,Urine (test Negative code = Protein,Urine) Glucose, Urine (test Negative code = Glucose,Urine) Ketones (test code = Negative Ketones) Occult Blood (test code Negative = OccultBlood) Bilirubin, Urine (test Negative code = Bilirubin,Urine) Urobilinogen (test code 0.2 mg/dL = Urobilinogen) Nitrite, Urine (test Negative code = Nitrite,Urine) Microscopic Exam (test NOTE : Microscopic code = MicroscopicExam) follows if indicated. CBC w/ Diff w/ [id number] 12:10:49 Test Item Value Reference Range Interpretation Comments WBC Count (test code = 6.6 {x10E3/uL} WBCCount) RBC Count (test code = 4.19 {x10E6/uL} RBCCount) Hemoglobin (test code = 13.4 g/dL Hemoglobin) Hematocrit (test code = 38.9 % Hematocrit) MCV (test code = MCV) 93 fL MCH (test code = MCH) 31.9 pg MCHC (test code = MCHC) 34.4 g/dL RDW (test code = RDW) 13.6 % Platelets (test code = 346 {x10E3/uL} Platelets) Polys (test code = Polys) 53 % Lymphs (test code = Lymphs) 32 % Monocytes (test code = 9 % Monocytes) Eosinophils (test code = 6 % Eosinophils) Basophils (test code = 0 % Basophils) Polys(Abolute) (test code = 3.5 {x10E3/uL} Polys(Abolute)) Lymphs(Absolute) (test code = 2.1 {x10E3/uL} Lymphs(Absolute)) Monocytes(Absolute) (test 0.6 {x10E3/uL} code = Monocytes(Absolute)) Eosinophils(Absolute) (test 0.4 {x10E3/uL} code = Eosinophils(Absolute)) Basophils(Absolute) (test 0.0 {x10E3/uL} code = Basophils(Absolute)) Comprehensive Metabolic [id number] 12:10:49 Test Item Value Reference Range Interpretation Comments Glucose,Serum (test code = 55 mg/dL Glucose,Serum) BUN (test code = BUN) 13 mg/dL Creatinine,Serum (test code = 0.9 mg/dL Creatinine,Serum) BUN/Creat Ratio (test code = 14 BUN/CreatRatio) Sodium (test code = Sodium) 136 mmol/L Potassium (test code = Potassium) 4.3 mmol/L Chloride (test code = Chloride) 101 mmol/L CO2 (test code = CO2) 26 mmol/L Calcium (test code = Calcium) 8.8 mg/dL Protein, Total (test code = 6.3 g/dL Protein,Total) Albumin (test code = Albumin) 4.1 g/dL Globulin, Total (test code = 2.2 g/dL Globulin,Total) A/G Ratio (test code = A/GRatio) 1.9 Bilirubin, Total (test code = 0.2 mg/dL Bilirubin,Total) Alkaline Phosphatase (test code = 64 {IU/L} AlkalinePhosphatase) AST (test code = AST) 41 {IU/L} ALT (test code = ALT) 38 {IU/L} Valproic Acid [id number] 17:06:08 Test Item Value Reference Range Interpretation Comments Valproic Acid Level 74 ug/mL Toxicity may occur at (test code = levels of 100-5 00. ValproicAcidLevel) Measureme nts of free unbou nd valproic acid m ay improve the ass ess- ment of clinical respon se. . Detecti on Limit = 4 Valproic Acid [id number] 16:33:03 Test Item Value Reference Range Interpretation Comments Valproic Acid Level 52 ug/mL Toxicity may occur at (test code = levels of 100-5 00. ValproicAcidLevel) Measureme nts of free unbou nd valproic acid m ay improve the ass ess- ment o f clinical respon se. . Detecti on Limit = 4 TSH, High Sensitivity, [id number] 16:32:09 Test Item Value Reference Range Interpretation Comments TSH, High Sensitivity, Serum 3.057 {uIU/mL} (test code = TSH,HighSensitivity,Serum) Drug Screen, Urine # [id number] 16:31:52 Test Item Value Reference Range Interpretation Comments Amphetamine (test code Negative = Amphetamine) Barbiturates (test code Negative = Barbiturates) Benzodiazepines (test Negative code = Benzodiazepines) Cannabinoid (test code Negative = Cannabinoid) Cocaine Metabolite Negative (test code = CocaineMetabolite) Opiate Screen (test Negative code = OpiateScreen) Phencyclidine (test Negative code = Phencyclidine) Methadone Level (test Negative code = MethadoneLevel) Propoxyphene (test code Negative = Propoxyphene) Drug Screen Comment DPRCD This assay (test code = provides a preliminary DrugScreenComment) unconfirmed analytical test resultthat may be suitable for the clinical management of patients incertain situations. For workplace drug testing programs, preliminarypositive findings should always be confirmed by an alternative method.Some vsdz-xko-elmoghw medications, as well as adulterants, may causeinaccurate results. Screen Only testing does not meet the College ofAmerican Pathologists Forensic Urine Drug Testing Program require-ments as a forensic urine drug test for workplace testing. Allclients must ensure that their testing program conforms to applicablestate and federal laws and employment agreements. Comprehensive Metabolic [id number] 16:34:42 Test Item Value Reference Range Interpretation Comments Glucose,Serum (test code = 111 mg/dL Glucose,Serum) BUN (test code = BUN) 16 mg/dL Creatinine,Serum (test code = 0.8 mg/dL Creatinine,Serum) BUN/Creat Ratio (test code = 20 BUN/CreatRatio) Sodium (test code = Sodium) 139 mmol/L Potassium (test code = Potassium) 5.1 mmol/L Chloride (test code = Chloride) 102 mmol/L CO2 (test code = CO2) 24 mmol/L Calcium (test code = Calcium) 9.9 mg/dL Protein, Total (test code = 7.3 g/dL Protein,Total) Albumin (test code = Albumin) 4.3 g/dL Globulin, Total (test code = 3.0 g/dL Globulin,Total) A/G Ratio (test code = A/GRatio) 1.4 Bilirubin, Total (test code = 0.8 mg/dL Bilirubin,Total) Alkaline Phosphatase (test code = 55 {IU/L} AlkalinePhosphatase) AST (test code = AST) 28 {IU/L} ALT (test code = ALT) 35 {IU/L} CBC w/ Diff w/ [id number] 16:34:41 Test Item Value Reference Range Interpretation Comments WBC Count (test code = 7.9 {x10E3/uL} WBCCount) RBC Count (test code = 4.87 {x10E6/uL} RBCCount) Hemoglobin (test code = 15.6 g/dL Hemoglobin) Hematocrit (test code = 45.0 % Hematocrit) MCV (test code = MCV) 92 fL MCH (test code = MCH) 32.1 pg MCHC (test code = MCHC) 34.7 g/dL RDW (test code = RDW) 12.8 % Platelets (test code = 290 {x10E3/uL} Platelets) Polys (test code = Polys) 66 % Lymphs (test code = Lymphs) 21 % Monocytes (test code = 9 % Monocytes) Eosinophils (test code = 4 % Eosinophils) Basophils (test code = 0 % Basophils) Polys(Abolute) (test code = 5.2 {x10E3/uL} Polys(Abolute)) Lymphs(Absolute) (test code = 1.7 {x10E3/uL} Lymphs(Absolute)) Monocytes(Absolute) (test 0.7 {x10E3/uL} code = Monocytes(Absolute)) Eosinophils(Absolute) (test 0.3 {x10E3/uL} code = Eosinophils(Absolute)) Basophils(Absolute) (test 0.0 {x10E3/uL} code = Basophils(Absolute)) Valproic Acid [id number] 16:34:30 Test Item Value Reference Range Interpretation Comments Valproic Acid Level 40 ug/mL Toxicity may occur at (test code = levels of 100-5 00. ValproicAcidLevel) Measureme nts of free unbou nd valproic acid m ay improve the ass ess- ment o f clinical respon se. . Detecti on Limit = 4 [id number] 16:33:20 Test Item Value Reference Range Interpretation Comments Specific Cleghorn (test 1.018 code = SpecificGravity) pH (test code = pH) 7.5 Urine Color (test code Yellow = UrineColor) Appearance (test code = Cloudy Appearance) WBC Esterase (test code Negative = WBCEsterase) Protein,Urine (test Negative code = Protein,Urine) Glucose, Urine (test Negative code = Glucose,Urine) Ketones (test code = Negative Ketones) Occult Blood (test code Negative = OccultBlood) Bilirubin, Urine (test Negative code = Bilirubin,Urine) Urobilinogen (test code 0.2 mg/dL = Urobilinogen) Nitrite, Urine (test Negative code = Nitrite,Urine) Microscopic Exam (test MICRON Microscopic code = MicroscopicExam) follows if indicated. Comprehensive Metabolic [id number] 10:35:42 Test Item Value Reference Range Interpretation Comments Glucose,Serum (test 98 mg/dL [facility] will be code = changing the cu t-point Glucose,Serum) to detect ImpairedFasting Glucose from 110 to 100 mg/dL to comply with theNovember 200 3 recommendations from the ADA. .EFFECTIVE J ANUARY 2003 the re ference intervals will* be changing to: 6 5 - 99 mg/dL . BUN (test code = 8 mg/dL BUN) Creatinine,Serum 0.6 mg/dL (test code = Creatinine,Serum) BUN/Creat Ratio 13 (test code = BUN/CreatRatio) Sodium (test code = 144 mmol/L Sodium) Potassium (test code 4.2 mmol/L = Potassium) Chloride (test code 106 mmol/L = Chloride) CO2 (test code = 27 mmol/L CO2) Calcium (test code = 9.4 mg/dL Calcium) Protein, Total (test 6.8 g/dL code = Protein,Total) Albumin (test code = 4.1 g/dL Albumin) Globulin, Total 2.7 g/dL (test code = Globulin,Total) A/G Ratio (test code 1.5 = A/GRatio) Bilirubin, Total 0.3 mg/dL (test code = Bilirubin,Total) Alkaline Phosphatase 69 {IU/L} (test code = AlkalinePhosphatase) AST (test code = 15 {IU/L} AST) ALT (test code = 13 {IU/L} ALT) TSH, High Sensitivity, [id number] 10:35:42 Test Item Value Reference Range Interpretation Comments TSH, High Sensitivity, Serum 1.058 {uIU/mL} (test code = TSH,HighSensitivity,Serum) CBC w/ Diff w/ [id number] 10:35:41 Test Item Value Reference Range Interpretation Comments WBC Count (test code = 8.6 {X 10-3/uL} WBCCount) RBC Count (test code = 4.52 {X 10-6/uL} RBCCount) Hemoglobin (test code = 14.6 g/dL Hemoglobin) Hematocrit (test code = 42.2 % Hematocrit) MCV (test code = MCV) 93 fL MCH (test code = MCH) 32.3 pg MCHC (test code = MCHC) 34.6 g/dL RDW (test code = RDW) 13.1 % Platelets (test code = 291 {X 10-3/uL} Platelets) Polys (test code = Polys) 62 % Lymphs (test code = Lymphs) 21 % Monocytes (test code = 10 % Monocytes) Eosinophils (test code = 7 % Eosinophils) Basophils (test code = 0 % Basophils) Polys(Abolute) (test code = 5.3 {X 10-3/uL} Polys(Abolute)) Lymphs(Absolute) (test code 1.8 {X 10-3/uL} = Lymphs(Absolute)) Monocytes(Absolute) (test 0.9 {X 10-3/uL} code = Monocytes(Absolute)) Eosinophils(Absolute) (test 0.6 {X 10-3/uL} code = Eosinophils(Absolute)) Basophils(Absolute) (test 0.0 {X 10-3/uL} code = Basophils(Absolute)) Drug Screen, [id number] 10:35:36 Test Item Value Reference Interpretation Comments Range Amphetamine (test Negative code = Amphetamine) Barbiturates (test Negative code = Barbiturates) Benzodiazepines (test Negative code = Benzodiazepines) Cannabinoid (test Negative code = Cannabinoid) Cocaine Metabolite Negative (test code = CocaineMetabolite) Opiate Screen (test Negative code = OpiateScreen) Phencyclidine (test Negative code = Phencyclidine) Methadone Level (test Negative code = MethadoneLevel) Propoxyphene (test Negative code = Propoxyphene) Drug Screen Comment DPRCD This assay provides (test code = a preliminary DrugScreenComment) unconfirmedanalytical test result that may be suitable forthe clinical management of patients in certainsituations. For workplace drug testing programs,preliminary positive findings should always beconfirmed by an alternative method. Some huui-ncq-asqbbdq medications, as well as adulterants, maycause inaccurate results. Screen Only testing doesnot meet the [employer] For-ensic Urine Drug Testing Program requirements as aforensic urine drug test for workplace testing. Allclients must ensure that their testing programconforms to applicable state and federal laws andemployment agreements. . [id number] 10:35:34 Test Item Value Reference Range Interpretation Comments Specific Cleghorn (test 1.007 code = SpecificGravity) pH (test code = pH) 7.5 Urine Color (test code Yellow = UrineColor) Appearance (test code = Clear Appearance) WBC Esterase (test code Negative = WBCEsterase) Protein,Urine (test Negative code = Protein,Urine) Glucose, Urine (test Negative code = Glucose,Urine) Ketones (test code = Negative Ketones) Occult Blood (test code Negative = OccultBlood) Bilirubin, Urine (test Negative code = Bilirubin,Urine) Urobilinogen (test code 0.0 mg/dL = Urobilinogen) Nitrite, Urine (test Negative code = Nitrite,Urine) Microscopic Exam (test MICRON Microscopic code = MicroscopicExam) follows if indicated.
[2021-03-18 17:15] LABS: Absolute Lymphocytes (CBC) 1.8 K/uL (0.7-4.9); Basophils % 0.9 % (0-1.3); Hematocrit 44.1 % (39.6-49.0); Lymphocytes % 32.9 % (15.3-44.8); MPV 8.9 fL (7.6-11.3); RBC Red Blood Cell Count 4.78 M/uL (4.33-5.43)
[2021-03-18 17:24] LABS: Protime INR 0.98
[2021-03-18] MEDS ORDERED: NA CHLORIDE 0.9% 1,000 ML ONE (17:45)
[2021-03-18] MEDS ORDERED: LORazepam 2 MG/ML VIAL ONE (17:45)
[2021-03-18 17:46] LABS: Urine Blood Negative (Negative); Urine Glucose Negative (Negative); Urine Protein Negative (Negative); Urine Specific Gravity 1.015 (1.005-1.030); Urine pH 6.5 (5.0-7.0)
[2021-03-18 17:55] LABS: ALT/SGPT 34 U/L (12-78); AST/SGOT 17 U/L (15-37); Alkaline Phosphatase 86 U/L (45-117); BUN Blood Urea Nitrogen 13 mg/dL (7-18); Bicarbonate 30 mmol/L (21-32); Bilirubin Direct 0.1 mg/dL (0-0.2); Bilirubin Total 0.4 mg/dL (0.2-1.0); Glucose Level 95 mg/dL (74-106); Protein, Total 7.8 g/dL (6.4-8.2); Sodium Level 142 mmol/L (136-145)
[2021-03-18 18:07] LABS: Barbiturates NEGATIVE (NEGATIVE); Benzodiazepines NEGATIVE (NEGATIVE); Cocaine NEGATIVE (NEGATIVE); METHAMPHETAM NEGATIVE (NEGATIVE); Methadone NEGATIVE (NEGATIVE); Opiates NEGATIVE (NEGATIVE); Phencyclidine NEGATIVE (NEGATIVE); THC Cannibis NEGATIVE (NEGATIVE)
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
--- NOTE | 2021-03-18 18:51 | EDPHYS ---
Physician Documentation [facility] Name: Bob Cuenca Age: 46 yrs Sex: Male : 1975 Arrival Date: 03/18/2021 Time: 13:16 Bed 13 Private MD: ED Physician Tristan El HPI: 03/18 16:25 This 46 yrs old Male presents to ER via Ambulatory with complaints of Psych jmm Problem - needs medications. 16:25 The patient presents to the emergency department with adhd, anxiety. Onset: The jmm symptoms/episode began/occurred gradually. Associated signs and symptoms: Pertinent negatives: hallucinations, homicidal ideation, substance abuse, suicide ideation. Patient states he is still anxious, discharged from inpatient care about 7 days ago and has run out of his medications. Patient wants to have his tegretol levels checked. . Historical: - Allergies: 13:36 No Known Allergies; tw2 - PMHx: 13:36 Bipolar disorder; ADD/ADHD; Anxiety; tw2 - PSHx: 13:36 back surgery; tw2 - Immunization history:: Adult Immunizations. - Social history:: Smoking status: . ROS: 16:25 Constitutional: Negative for fever, chills, and weight loss, Cardiovascular: Negative jmm for chest pain, palpitations, and edema, Respiratory: Negative for shortness of breath, cough, wheezing, and pleuritic chest pain, Abdomen/GI: Negative for abdominal pain, nausea, vomiting, diarrhea, and constipation. 16:25 Psych: Positive for anxiety. 16:25 All other systems are negative. Exam: 16:25 Constitutional: This is a well developed, well nourished patient who is awake, alert, jmm and in no acute distress. Head/Face: atraumatic. Eyes: EOMI, no conjunctival erythema appreciated ENT: Moist Mucus Membranes Neck: Trachea midline, Supple Chest/axilla: Normal chest wall appearance and motion. Cardiovascular: Regular rate and rhythm. No edema appreciated Respiratory: Normal respirations, no respiratory distress appreciated Abdomen/GI: Non distended, soft Back: Normal ROM 16:25 Skin: Appearance: Color: normal in color. 16:25 Neuro: Orientation: is normal, Mentation: is normal, Memory: is normal. 16:25 Psych: Behavior/mood is pleasant, cooperative. Vital Signs: 13:36 BP 146 / 98; Pulse 120; Resp 19; Temp 97.9(TE); Pulse Ox 100% on R/A; Weight 73.94 kg tw2 (M); Height 6 ft. 2 in. (187.96 cm); 17:30 BP 138 / 79; Pulse 104; Resp 20; Pulse Ox 99% on R/A; em 13:36 Body Mass Index 20.93 (73.94 kg, 187.96 cm) tw2 MDM: 16:25 Patient medically screened. saray 18:49 Data reviewed: vital signs, nurses notes. Counseling: I had a detailed discussion with hector the patient and/or guardian regarding: the historical points, exam findings, and any diagnostic results supporting the discharge/admit diagnosis, lab results, the need for outpatient follow up, to return to the emergency department if symptoms worsen or persist or if there are any questions or concerns that arise at home. 18:49 ED course: Labs unremarkable. Tegratol levels wnl. Case was discussed with [facility]. janette Does not meet critieria for ER evaluation. Contact info given for outpatient care for tomorrow. I discussed this with the patient whom stated having no where to go. Patient given information for homeless long-term. . 03/18 16:42 Order name: Acetaminophen; Complete Time: 18:22 [facility] 03/18 16:42 Order name: Basic Metabolic Panel; Complete Time: 18:22 [facility] 03/18 16:42 Order name: CBC with Diff; Complete Time: 17:19 [facility] 03/18 16:42 Order name: ETOH Level; Complete Time: 17:47 [facility] 03/18 16:42 Order name: Hepatic Function; Complete Time: 18:22 [facility] 03/18 16:42 Order name: PT-INR; Complete Time: 17:35 [facility] 03/18 16:42 Order name: Ptt, Activated; Complete Time: 17:35 [facility] 03/18 16:42 Order name: Salicylate; Complete Time: 17:47 [facility] 03/18 16:42 Order name: Urine Drug Screen; Complete Time: 18:07 [facility] 03/18 16:42 Order name: EKG; Complete Time: 16:42 [facility] 03/18 16:43 Order name: Tegretol Level; Complete Time: 18:22 [facility] 03/18 17:45 Order name: Urine Dipstick-Ancillary; Complete Time: 17:48 [facility] 03/18 16:42 Order name: EKG - Nurse/Tech; Complete Time: 17:46 [facility] 03/18 16:42 Order name: IV Saline Lock; Complete Time: 17:46 [facility] 03/18 16:42 Order name: Labs collected and sent; Complete Time: 17:46 [facility] 03/18 16:42 Order name: Suicide Screening ([place]); Complete Time: 16:48 [facility] 03/18 16:42 Order name: Urine Dipstick-Ancillary (obtain specimen); Complete Time: 17:46 [facility] Administered Medications: 17:46 Drug: NS 0.9% 1000 ml Route: IV; Rate: 1 bolus; Site: left antecubital; ss 19:18 Follow up: IV Status: Completed infusion; IV Intake: 1000ml em 17:46 Drug: Ativan (LORazepam) 1 mg Route: IVP; Site: left antecubital; ss 18:00 Follow up: Response: No adverse reaction em Disposition: 03/19 11:22 Co-signature as Attending Physician, Tristan El MD I agree with the assessment and [facility] plan of care. Disposition: 03/18/21 18:51 Discharged to Home. Impression: Anxiety disorder, unspecified. - Condition is Stable. - Discharge Instructions: Generalized Anxiety Disorder. - Medication Reconciliation Form, Thank You Letter, Antibiotic Education, Prescription Opioid Use form. - Follow up: Private Physician; When: 2 - 3 days; Reason: Recheck today's complaints, Continuance of care, Re-evaluation by your physician. Signatures: Dispatcher [employer] Tristan Mcclelland MD MD cha Mickail, Joel, PA PA jmm Smirch, Shelby, RN RN ss Lolly Lira RN RN tw2 Caleb Waters RN RN jm8 Brice Park RN em Corrections: (The following items were deleted from the chart) 03/18 19:27 18:51 03/18/2021 18:51 Discharged to Home. Impression: Anxiety disorder, unspecified. jm8 Condition is Stable. Forms are Medication Reconciliation Form, Thank You Letter, Antibiotic Education, Prescription Opioid Use. Follow up: Private Physician; When: 2 - 3 days; Reason: Recheck today's complaints, Continuance of care, Re-evaluation by your physician. janettem
[2021-03-18 19:40] VITALS: TEMP 97.9
[2021-03-18 19:42] VITALS: BP 138/79; O2SAT 99
--- NOTE | 2021-03-20 07:23 | EKG ---
Test Date: 2021-03-18 Test Time: 17:00:42 Inspector Of Weights And Measures: MIGUEL MEASUREMENT RESULTS: Intervals: Rate: 91 NH: 146 QRSD: 102 QT: 352 QTc: 432 [place]: P: 49 NH: 146 QRS: 55 T: 63 INTERPRETIVE STATEMENTS: Normal sinus rhythm Normal ECG Compared to ECG 01/10/2021 01:31:37 Myocardial infarct finding no longer present Electronically Signed On 03-20-21 07:18:33 CDT by William Maguire
== END 2021-03-18 19:27 | disposition home or self-care (01) ==
LOC: ER 13:14
DX: F41.9 Anxiety disorder, unspecified (principal); F31.9 Bipolar disorder, unspecified
CPT/HCPCS: 36415; 80048; 80076; 80156; 80307; 80320; 80329; 81003; 85025; 85610; 85730; 93005; 96361; 96374; 99284; J7030

== ENCOUNTER 2022-02-28 15:38 | Emergency (ER) | payer SELFPAY ==
--- OUTSIDE RECORDS SUMMARY | 2022-02-28 15:43 | XMS REPORT | Continuity of Care Document ---
:1975 Author Organization [facility] t Address [address] [place] [address] Care Team Providers Name Role Phone KIMBERLEY Attending Clinician Unavailable Petra OCAMPO Attending Clinician Unavailable Phi YANG Attending Clinician Unavailable MILENA Attending Clinician Unavailable Jay CIFUENTES Attending Clinician Unavailable Petra ORELLANA Attending Clinician Unavailable KIERRA Attending Clinician Unavailable WINIFRED Attending Clinician Unavailable Ambar ALCALA Attending Clinician Unavailable AMANUEL Attending Clinician Unavailable Shelley HUANG Attending Clinician Unavailable Sanaz SIERRA Attending Clinician Unavailable TEODORO Attending Clinician Unavailable MARIA ELENA Attending Clinician Unavailable Petra RINCON Attending Clinician Unavailable AMILCAR Attending Clinician Unavailable Petra Sparrow Attending Clinician Unavailable Reese MOORE Attending Clinician Unavailable ESTEFANY Attending Clinician Unavailable Petra Webb Attending Clinician Unavailable Maribel Attending Clinician Unavailable Jefe Attending Clinician Unavailable Sly Amador Attending Clinician Unavailable Ashok Attending Clinician Unavailable Cande Dove Attending Clinician Unavailable Papo Attending Clinician Unavailable Shelley GREENE Attending Clinician Unavailable KIMBERLEY Admitting Clinician Unavailable Payers Payer Name Policy Type Policy Number Effective Date Expiration Date Reese ariza MEDICARE PART A [id number] 1995 00:00:00 Advance Directives Directive Decision Effective Date Termination Date Comments Sour ce Yes N/A [facility] Problems Condition Condition Condition Status Onset Resolution Last Treating Co mments Source Name Details Category Date Date Treatment Clinician Date Mild Mild 84749-6 Active 2007-2007-11-22 Mental Mental 11-22 09:49:09 Retardatio Retardatio 00:00: n nOnset: 00 22-Nov-2007 MR KING 43943-2 Active 2006-2007-10-22 Severity, Severity, 12-23 18:10:37 Unspecifie Unspecifie 00:00: d dOnset: 00 22-Oct-2007 None NoneOnset: 73064-5 Active 2004-2005-02-1002-10 14:05:25 5 00:00: 00 Mental Mental 39792-8 Active 2002-2003-11-07 Retardatn Retardatn 01-08 10:54:56 Severty Severty 00:00: Unsp UnspOnset: 00 3 None NoneOnset: 89737-3 Active 2001-2002-01-0901-09 13:26:51 2 00:00: 00 Mental Mental 03457-1 Resolve 2006-112007-11-22 2007-11-22 Retardatn Retardatn d 09:49:22 09:49:25 Severty Severty 00:00: Unsp UnspOnset: 00 7Status: Resolved as of 22-Nov-2007 9:49 Mod Mental Mod Mental 23087-8 Resolve 2007-11-22 2007-11-22 Retardatio Retardatio d 11-21 09:48:47 09:48:50 n nOnset: 00:00: 21-Nov-2007 00 Status: Resolved as of 22-Nov-2007 9:48 Allergies, Adverse Reactions, Alerts Allergy Allergy Status Severity Reaction(s) Onset Inactive Treating Comm ents Source Name Type Date Date Clinician Unable DA Active U [facility] to 01-25 Assess 00:00: 00 No Known DA Active U [facility] Drug 01-25 Allergie 00:00: s 00 Unable DA Active U [facility] to 01-18 Assess 00:00: 00 Unable DA Active U 2020- [facility] to 01-06 Assess 00:00: 00 fluPHENA Allergy Active [place] Zine risperiD Allergy Active [place] ONE Haldol Allergy Active [place] thiorida Allergy Active [place]ia zine Social History Smoking Status Start Date Stop Date Source Tobacco smoking consumption [facility] unknown Medications Ordered Filled Start Stop Current Ordering Indication Dosage Frequency Signature Comments Components Source Medication Medication Date Date Medication? Clinician (SIG) Name Name Motrin 600 No [id number] 1{tab(s Motrin 600 mg oral 01-15 )} mg oral tablet 11:35: tablet; 1 59 tab(s) orally every 6 hours, As Needed painQuanti ty: 0 Refills: 0Ordered: 15-Jan-2021 Mila StephenGeneric Substituti on Allowed gabapentin No [id number] 1{cap(s gabapentin 300 mg oral 01-15 )} 300 mg capsule 11:35: oral 29 capsule; 1 cap(s) orally 3 times a dayQuantit y: 0 Refills: 0Ordered: 15-Jan-2021 Mila StephenGeneric Substituti on Allowed TEGretol No [id number] 300mg TEGretol; 01-15 300 11:35: milligram( 00 s) orally 2 times a dayQuantit y: 0 Refills: 0Ordered: 15-Jan-2021 Mila StephenGeneric Substituti on Allowed Effexor XR No [id number] 1{cap(s Effexor XR 75 mg oral 01-15 )} 75 mg oral capsule, 11:34: capsule, extended 26 extended release release; 1 cap(s) orally once a dayQuantit y: 0 Refills: 0Ordered: 15-Jan-2021 Mila StephenGeneric Substituti on Allowed Benadryl 50 2006-11- No [id number] 0 Benadryl mg PO now 11-14 902815 50 mg PO 02:46: 02:46 nowQuantit 07 :07 y: 0 Refills: 0Ordered: Audrey Birdrt : 7 End: 7Generic Substituti on Allowed Ambien 10 2006-11- No [id number] 0 Ambien 10 mg PO at 11-14 938471 mg PO at bedtime, 02:44: 02:44 bedtime, NPC 04 :04 NPCQuantit y: 0 Refills: 0Ordered: Audrey Birdtart : 7 End: 7Status: OtherGener ic Substituti on Allowed Glyburide 5 2006-11- No [id number] 0 Glyburide mg PO every 11-14 583845 5 mg PO morning 02:43: 02:43 every 33 :33 morningQua ntity: 0 Refills: 0Ordered: Audrey Birdtart : 7 End: 7Generic Substituti on Allowed Levothyroxi 2006-11- No [id number] 0 Levothyrox ne 100 mcg 11-14 612598 ine 100 PO every 02:42: 02:42 mcg PO morning - 28 :28 every NPC morning - NPCQuantit y: 0 Refills: 0Ordered: Audrey Birdtart : 7 End: 7Generic Substituti on Allowed Ativan 2 mg 2006-11- No [id number] 0 Ativan 2 PO now- NPC 11-14 913808 mg PO now- 02:41: 02:41 NPCQuantit 53 :53 y: 0 Refills: 0Ordered: Audrey Birdtart : 7 End: 7Generic Substituti on Allowed Seroquel 2006-11- No [id number] 0 Seroquel 600 mg 11-14 563705 600 mg daily at 02:40: 02:40 daily at bedtime- 54 :54 bedtime- NPC NPCQuantit y: 0 Refills: 0Ordered: Audrey Birdrt : 7 End: 7Status: OtherGener ic Substituti on Allowed Seroquel 2006-11- No [id number] 0 Seroquel 200 mg PO 11-14 056100 200 mg PO three times 02:36: 02:36 three daily- NPC 39 :39 times daily- NPCQuantit y: 0 Refills: 0Ordered: Audrey Birdtart : 7 End: 7Status: OtherGener ic Substituti on Allowed Celebrex 2006-11- No [id number] 0 Celebrex 100 mg 11-14 459145 100 mg capsules, 02:35: 02:35 capsules, take one 51 :51 take one capsule by capsule by mouth every mouth 8 hours as every 8 needed, hours as home needed, medications home medication sQuantity: 0 Refills: 0Ordered: Audrey Birdtart : 7 End: 7Status: OtherGener ic Substituti on Allowed Seroquel 2006-11- No [id number] 0 Seroquel 200 mg 11-14 170130 200 mg tablets, 02:34: 02:34 tablets, take 1 32 :32 take 1 tablet by tablet by mouth three mouth times daily three and three times tablets daily and every at three bedtime - tablets home every at medications bedtime - home medication sQuantity: 0 Refills: 0Ordered: Audrey Birdtart : 7 End: 7Status: OtherGener ic Substituti on Allowed Strattera 2006-11- No [id number] 0 Strattera 40 mg 11-14 648111 40 mg capsules, 02:33: 02:33 capsules, take 2 35 :35 take 2 capsule by capsule by mouth every mouth day - home every day medications - home medication sQuantity: 0 Refills: 0Ordered: Audrey Birdrt : 7 End: 7Status: OtherGener ic Substituti on Allowed Clonidine 2006-11- No [id number] 0 Clonidine 0.2 mg 11-14 132111 0.2 mg tablets, 02:32: 02:32 tablets, take one 15 :15 take one tablet by tablet by mouth four mouth four times daily times - home daily - medications home medication sQuantity: 0 Refills: 0Ordered: Audrey Birdrt : 7 End: 7Status: OtherGener ic Substituti on Allowed Levothyroxi 2006-11- No [id number] 0 Levothyrox ne 100mcg 12-23 567682 ine 14:31: 14:31 100mcg; 39 :39 home 1 orally, dailyQuant ity: 0 Refills: 0Ordered: 22-Oct-2007 Mandy zOuna FStart: 22-Oct-2007 End: 22-Oct-2007 Status: Discontinu edGeneric Substituti on Allowed Glyburide 2006-11- No [id number] 0 Glyburide 5mg 12-23 905174 5mg; home 14:31: 14:31 1 orally , 11 :11 dailyQuan tity: 0 Refills: 0Ordered: 22-Oct-2007 Mandy Ozuna FStart: 22-Oct-2007 End: 22-Oct-2007 Status: Discontinu edGeneric Substituti on Allowed Actos 15mg 2006-11- No [id number] 0 Actos 12-23 200820 15mg; home 14:30: 14:30 1 orally 38 :38 twice dailyQuant ity: 0 Refills: 0Ordered: 22-Oct-2007 Mandy Ozuna FStart: 22-Oct-2007 End: 22-Oct-2007 Status: Discontinu edGeneric Substituti on Allowed Seroquel 2006-11- No [id number] 0 Seroquel 400mg 12-23 522580 400mg; 14:30: 14:30 home 1 01 :01 orally at bedtimeQua ntity: 0 Refills: 0Ordered: 22-Oct-2007 Mandy Ozuna FStart: 22-Oct-2007 End: 22-Oct-2007 Status: Discontinu edGeneric Substituti on Allowed Seroquel 2006-11- No [id number] 0 Seroquel 200mg 12-23 052842 200mg; 14:29: 14:29 home 1 41 :41 orally every morningQua ntity: 0 Refills: 0Ordered: 22-Oct-2007 Mandy Ozuna FStart: 22-Oct-2007 End: 22-Oct-2007 Status: Discontinu edGeneric Substituti on Allowed Clonazepam 2006-11 2007- No [id number] 0 Clonazepam 1mg 12-23 895458 1mg; home 14:29: 14:29 1 orally 18 :18 twice dailyQuant ity: 0 Refills: 0Ordered: 22-Oct-2007 Mandy Ozuna FStart: 22-Oct-2007 End: 22-Oct-2007 Status: Discontinu edGeneric Substituti on Allowed Trileptal 2006-11 2007- No [id number] 0 Trileptal 600mg 12-23 349862 600mg; 14:28: 14:28 home 1 46 :46 orally twice dailiyQuan tity: 0 Refills: 0Ordered: 22-Oct-2007 Mandy Ozuna FStart: 22-Oct-2007 End: 22-Oct-2007 Status: Discontinu edGeneric Substituti on Allowed Klonopin 2006-11 2007- No [id number] 0 Klonopin 1mg 12-23 005918 1mg; npc 1 14:27: 14:27 orally 40 :40 0900 10/22Quanti ty: 0 Refills: 0Ordered: 22-Oct-2007 Mandy Ozuna FStart: 22-Oct-2007 End: 22-Oct-2007 Status: Discontinu edGeneric Substituti on Allowed Seroquel 2006-11 2007- No [id number] 0 Seroquel 200mg 12-23 788406 200mg; npc 14:27: 14:27 1 orally 16 :16 0900 10/22Quanti ty: 0 Refills: 0Ordered: 22-Oct-2007 Mandy Ozuna FStart: 22-Oct-2007 End: 22-Oct-2007 Status: Discontinu edGeneric Substituti on Allowed Ativan 2mg 2006-11 2007- No [id number] 0 Ativan 12-23 586534 2mg; npc 1 14:26: 14:26 oraly 0900 55 :55 12Quant ity: 0 Refills: 0Ordered: 22-Oct-2007 Mandy Ozuna FStart: 22-Oct-2007 End: 22-Oct-2007 Status: Discontinu edGeneric Substituti on Allowed Levothyroxi 2006-11 2007- No [id number] 0 Levothyrox ne 100mcg -10-22 086567 ine 14:26: 14:26 100mcg; 10 :10 npc 1 orally 1000 10/22Quanti ty: 0 Refills: 0Ordered: 22-Oct-2007 Mandy Ozuna FStart: 22-Oct-2007 End: 22-Oct-2007 Status: Discontinu edGeneric Substituti on Allowed Trileptal 2006-11 2007- No [id number] 0 Trileptal 600mg -10-22 935838 600mg; npc 14:25: 14:25 1 orally 51 :51 0900 10/22Quanti ty: 0 Refills: 0Ordered: 22-Oct-2007 Mandy Ozuna FStart: 22-Oct-2007 End: 22-Oct-2007 Status: Discontinu edGeneric Substituti on Allowed Glyburide 2006-11 2007- No [id number] 0 Glyburide 5mg 12-23 312332 5mg; npc 1 14:25: 14:25 orally 21 :21 0900 10/22Quanti ty: 0 Refills: 0Ordered: 22-Oct-2007 Mandy Ozuna FStart: 22-Oct-2007 End: 22-Oct-2007 Status: Discontinu edGeneric Substituti on Allowed Trileptal 2006-11- No [id number] 0 Trileptal 600mg -10-22 126265 600mg; 1 14:24: 14:24 orally 34 :34 0900 10/22Quanti ty: 0 Refills: 0Ordered: 22-Oct-2007 Mandy Ozuna FStart: 22-Oct-2007 End: 22-Oct-2007 Status: Discontinu edGeneric Substituti on Allowed Vital Signs Vital Name Observation Time Observation Value Comments Source 02 Sat by Pulse Oximetry 2021-01-27 13:42:43 99 /min Body Mass Index 2021-01-27 13:42:43 23.1 Height 2021-01-27 13:42:43 187.96\S\74 Pulse Rate 2021-01-27 13:42:43 80 /min Respiratory Rate 2021-01-27 13:42:43 20 /min Temperature 2021-01-27 13:42:43 36.8\S\98.2 Weight 2021-01-27 13:42:43 17224.626\S\2880 Weight Measurement Method 2021-01-27 13:42:43 Estimated by Patient 02 Sat by Pulse Oximetry 2021-01-25 14:51:01 99 /min Body Mass Index 2021-01-25 14:51:01 23.1 Height 2021-01-25 14:51:01 187.96\S\74 Pulse Rate 2021-01-25 14:51:01 80 /min Respiratory Rate 2021-01-25 14:51:01 20 /min Temperature 2021-01-25 14:51:01 36.8\S\98.2 Weight 2021-01-25 14:51:01 40907.626\S\2880 Weight Measurement Method 2021-01-25 14:51:01 Estimated by Patient 02 Sat by Pulse Oximetry 2021-01-25 11:37:46 99 /min Body Mass Index 2021-01-25 11:37:46 23.1 Height 2021-01-25 11:37:46 187.96\S\74 Pulse Rate 2021-01-25 11:37:46 80 /min Respiratory Rate 2021-01-25 11:37:46 20 /min Temperature 2021-01-25 11:37:46 36.8\S\98.2 Weight 2021-01-25 11:37:46 48079.626\S\2880 Weight Measurement Method 2021-01-25 11:37:46 Estimated by Patient 02 Sat by Pulse Oximetry 2021-01-25 11:02:06 99 /min Body Mass Index 2021-01-25 11:02:06 23.1 Height 2021-01-25 11:02:06 187.96\S\74 Pulse Rate 2021-01-25 11:02:06 80 /min Respiratory Rate 2021-01-25 11:02:06 20 /min Temperature 2021-01-25 11:02:06 36.8\S\98.2 Weight 2021-01-25 11:02:06 79361.626\S\2880 Weight Measurement Method 2021-01-25 11:02:06 Estimated by Patient 02 Sat by Pulse Oximetry 2021-01-25 10:55:59 99 /min Body Mass Index 2021-01-25 10:55:59 23.1 Height 2021-01-25 10:55:59 187.96\S\74 Pulse Rate 2021-01-25 10:55:59 80 /min Respiratory Rate 2021-01-25 10:55:59 20 /min Temperature 2021-01-25 10:55:59 36.8\S\98.2 Weight 2021-01-25 10:55:59 46177.626\S\2880 Weight Measurement Method 2021-01-25 10:55:59 Estimated by Patient 02 Sat by Pulse Oximetry 2021-01-25 10:46:19 99 /min Body Mass Index 2021-01-25 10:46:19 23.1 Height 2021-01-25 10:46:19 187.96\S\74 Pulse Rate 2021-01-25 10:46:19 80 /min Respiratory Rate 2021-01-25 10:46:19 20 /min Temperature 2021-01-25 10:46:19 36.8\S\98.2 Weight 2021-01-25 10:46:19 91202.626\S\2880 Weight Measurement Method 2021-01-25 10:46:19 Estimated by Patient 02 Sat by Pulse Oximetry 2021-01-25 10:24:57 99 /min Body Mass Index 2021-01-25 10:24:57 23.1 Height 2021-01-25 10:24:57 187.96\S\74 Pulse Rate 2021-01-25 10:24:57 80 /min Respiratory Rate 2021-01-25 10:24:57 20 /min Temperature 2021-01-25 10:24:57 36.8\S\98.2 Weight 2021-01-25 10:24:57 60727.626\S\2880 Weight Measurement Method 2021-01-25 10:24:57 Estimated by Patient 02 Sat by Pulse Oximetry 2021-01-25 10:21:23 99 /min Body Mass Index 2021-01-25 10:21:23 23.1 Height 2021-01-25 10:21:23 187.96\S\74 Pulse Rate 2021-01-25 10:21:23 80 /min Respiratory Rate 2021-01-25 10:21:23 20 /min Temperature 2021-01-25 10:21:23 36.8\S\98.2 Weight 2021-01-25 10:21:23 13424.626\S\2880 Weight Measurement Method 2021-01-25 10:21:23 Estimated by Patient 02 Sat by Pulse Oximetry 2021-01-25 10:07:08 99 /min Body Mass Index 2021-01-25 10:07:08 23.1 Height 2021-01-25 10:07:08 187.96\S\74 Pulse Rate 2021-01-25 10:07:08 80 /min Respiratory Rate 2021-01-25 10:07:08 20 /min Temperature 2021-01-25 10:07:08 36.8\S\98.2 Weight 2021-01-25 10:07:08 91251.626\S\2880 Weight Measurement Method 2021-01-25 10:07:08 Estimated by Patient WEIGHT 2021-01-25 10:03:00 81.862170 kg HEIGHT 2021-01-25 10:03:00 187.96 cm Respiratory 2021-01-24 18:55:56 No respiratory distress /min 02 Sat by Pulse Oximetry 2021-01-24 18:55:56 96 /min Body Mass Index 2021-01-24 18:55:56 18.5 Height 2021-01-24 18:55:56 185.42\S\73 Pulse Rate 2021-01-24 18:55:56 97 /min Respiratory Rate 2021-01-24 18:55:56 16 /min Temperature 2021-01-24 18:55:56 36.9\S\98.4 Weight 2021-01-24 18:55:56 39837.932\S\2240 Weight Measurement Method 2021-01-24 18:55:56 Estimated by Patient 02 Sat by Pulse Oximetry 2021-01-20 12:48:37 99 /min Body Mass Index 2021-01-20 12:48:37 24.8 Height 2021-01-20 12:48:37 185\S\72.83 Pulse Rate 2021-01-20 12:48:37 99 /min Respiratory Rate 2021-01-20 12:48:37 18 /min Temperature 2021-01-20 12:48:37 37\S\98.6 Weight 2021-01-20 12:48:37 40138\S\2998.287 02 Sat by Pulse Oximetry 2021-01-18 07:53:11 99 /min Body Mass Index 2021-01-18 07:53:11 24.8 Height 2021-01-18 07:53:11 185\S\72.83 Pulse Rate 2021-01-18 07:53:11 99 /min Respiratory Rate 2021-01-18 07:53:11 18 /min Temperature 2021-01-18 07:53:11 37\S\98.6 Weight 2021-01-18 07:53:11 70470\S\2998.287 WEIGHT 2021-01-18 07:51:00 85 kg HEIGHT 2021-01-18 07:51:00 185 cm 02 Sat by Pulse Oximetry 2021-01-18 05:49:18 99 /min Body Mass Index 2021-01-18 05:49:18 24.8 Height 2021-01-18 05:49:18 185\S\72.83 Pulse Rate 2021-01-18 05:49:18 90 /min Respiratory Rate 2021-01-18 05:49:18 18 /min Weight 2021-01-18 05:49:18 15442\S\2998.287 02 Sat by Pulse Oximetry 2021-01-18 04:25:42 98 /min Body Mass Index 2021-01-18 04:25:42 24.8 Height 2021-01-18 04:25:42 185\S\72.83 Pulse Rate 2021-01-18 04:25:42 103 /min Respiratory Rate 2021-01-18 04:25:42 18 /min Weight 2021-01-18 04:25:42 26756\S\2998.287 02 Sat by Pulse Oximetry 2021-01-18 03:14:17 98 /min Body Mass Index 2021-01-18 03:14:17 24.8 Height 2021-01-18 03:14:17 185\S\72.83 Pulse Rate 2021-01-18 03:14:17 103 /min Respiratory Rate 2021-01-18 03:14:17 18 /min Weight 2021-01-18 03:14:17 57503\S\2998.287 02 Sat by Pulse Oximetry 2021-01-18 01:11:50 98 /min Body Mass Index 2021-01-18 01:11:50 24.8 Height 2021-01-18 01:11:50 185\S\72.83 Pulse Rate 2021-01-18 01:11:50 103 /min Respiratory Rate 2021-01-18 01:11:50 18 /min Weight 2021-01-18 01:11:50 63804\S\2998.287 02 Sat by Pulse Oximetry 2021-01-18 01:03:41 98 /min Body Mass Index 2021-01-18 01:03:41 24.8 Height 2021-01-18 01:03:41 185\S\72.83 Pulse Rate 2021-01-18 01:03:41 103 /min Respiratory Rate 2021-01-18 01:03:41 18 /min Weight 2021-01-18 01:03:41 68875\S\2998.287 02 Sat by Pulse Oximetry 2021-01-18 00:25:43 98 /min Body Mass Index 2021-01-18 00:25:43 24.8 Height 2021-01-18 00:25:43 185\S\72.83 Pulse Rate 2021-01-18 00:25:43 103 /min Respiratory Rate 2021-01-18 00:25:43 18 /min Weight 2021-01-18 00:25:43 74540\S\2998.287 02 Sat by Pulse Oximetry 2021-01-18 00:24:11 98 /min Body Mass Index 2021-01-18 00:24:11 24.8 Height 2021-01-18 00:24:11 185\S\72.83 Pulse Rate 2021-01-18 00:24:11 103 /min Respiratory Rate 2021-01-18 00:24:11 18 /min Weight 2021-01-18 00:24:11 14327\S\2998.287 02 Sat by Pulse Oximetry 2021-01-18 00:20:06 98 /min Body Mass Index 2021-01-18 00:20:06 24.8 Height 2021-01-18 00:20:06 185\S\72.83 Pulse Rate 2021-01-18 00:20:06 103 /min Respiratory Rate 2021-01-18 00:20:06 18 /min Weight 2021-01-18 00:20:06 28780\S\2998.287 WEIGHT 2021-01-18 00:18:00 85 kg HEIGHT 2021-01-18 00:18:00 185 cm 02 Sat by Pulse Oximetry 2021-01-14 08:02:00 96 /min Body Mass Index 2021-01-14 08:02:00 18.5 Height 2021-01-14 08:02:00 185.42\S\73 Pulse Rate 2021-01-14 08:02:00 97 /min Respiratory Rate 2021-01-14 08:02:00 16 /min Temperature 2021-01-14 08:02:00 36.9\S\98.4 Weight 2021-01-14 08:02:00 73930.932\S\2240 Weight Measurement Method 2021-01-14 08:02:00 Estimated by [...] Temperature 2021-01-14 08:01:29 36.9\S\98.4 Weight 2021-01-14 08:01:29 00320.932\S\2240 Weight Measurement Method 2021-01-14 08:01:29 Estimated by Patient Respiratory 2021-01-13 06:17:23 No respiratory distress /min 02 Sat by Pulse Oximetry 2021-01-13 06:17:23 96 /min Body Mass Index 2021-01-13 06:17:23 18.5 Height 2021-01-13 06:17:23 185.42\S\73 Pulse Rate 2021-01-13 06:17:23 97 /min Respiratory Rate 2021-01-13 06:17:23 16 /min Temperature 2021-01-13 06:17:23 36.9\S\98.4 Weight 2021-01-13 06:17:23 89446.932\S\2240 Weight Measurement Method 2021-01-13 06:17:23 Estimated by Patient Respiratory 2021-01-12 13:59:38 No respiratory distress /min 02 Sat by Pulse Oximetry 2021-01-12 13:59:38 96 /min Body Mass Index 2021-01-12 13:59:38 18.5 Height 2021-01-12 13:59:38 185.42\S\73 Pulse Rate 2021-01-12 13:59:38 97 /min Respiratory Rate 2021-01-12 13:59:38 16 /min Temperature 2021-01-12 13:59:38 36.9\S\98.4 Weight 2021-01-12 13:59:38 81933.932\S\2240 Weight Measurement Method 2021-01-12 13:59:38 Estimated by Patient Respiratory 2021-01-12 11:14:42 No respiratory distress /min 02 Sat by Pulse Oximetry 2021-01-12 11:14:42 96 /min Body Mass Index 2021-01-12 11:14:42 18.5 Height 2021-01-12 11:14:42 185.42\S\73 Pulse Rate 2021-01-12 11:14:42 97 /min Respiratory Rate 2021-01-12 11:14:42 16 /min Temperature 2021-01-12 11:14:42 36.9\S\98.4 Weight 2021-01-12 11:14:42 51120.932\S\2240 Weight Measurement Method 2021-01-12 11:14:42 Estimated by Patient 02 Sat by Pulse Oximetry 2021-01-12 11:05:02 96 /min Body Mass Index 2021-01-12 11:05:02 18.5 Height 2021-01-12 11:05:02 185.42\S\73 Pulse Rate 2021-01-12 11:05:02 97 /min Respiratory Rate 2021-01-12 11:05:02 16 /min Temperature 2021-01-12 11:05:02 36.9\S\98.4 Weight 2021-01-12 11:05:02 82183.932\S\2240 Weight Measurement Method 2021-01-12 11:05:02 Estimated by Patient Respiratory 2021-01-12 11:05:01 No respiratory distress /min 02 Sat by Pulse Oximetry 2021-01-12 07:15:05 99 /min Body Mass Index 2021-01-12 07:15:05 18.5 Height 2021-01-12 07:15:05 185.42\S\73 Pulse Rate 2021-01-12 07:15:05 113 /min Respiratory Rate 2021-01-12 07:15:05 20 /min Temperature 2021-01-12 07:15:05 37.1\S\98.8 Weight 2021-01-12 07:15:05 40759.932\S\2240 Weight Measurement Method 2021-01-12 07:15:05 Estimated by Patient 02 Sat by Pulse Oximetry 2021-01-12 06:51:11 99 /min Body Mass Index 2021-01-12 06:51:11 18.5 Height 2021-01-12 06:51:11 185.42\S\73 Pulse Rate 2021-01-12 06:51:11 113 /min Respiratory Rate 2021-01-12 06:51:11 20 /min Temperature 2021-01-12 06:51:11 37.1\S\98.8 Weight 2021-01-12 06:51:11 79907.932\S\2240 Weight Measurement Method 2021-01-12 06:51:11 Estimated by Patient 02 Sat by Pulse Oximetry 2021-01-12 06:47:38 99 /min Body Mass Index 2021-01-12 06:47:38 18.5 Height 2021-01-12 06:47:38 185.42\S\73 Pulse Rate 2021-01-12 06:47:38 113 /min Respiratory Rate 2021-01-12 06:47:38 20 /min Temperature 2021-01-12 06:47:38 37.1\S\98.8 Weight 2021-01-12 06:47:38 90572.932\S\2240 Weight Measurement Method 2021-01-12 06:47:38 Estimated by Patient WEIGHT 2021-01-12 06:43:00 63.797655 kg HEIGHT 2021-01-12 06:43:00 185.42 cm 02 Sat by Pulse Oximetry 2021-01-12 06:42:32 99 /min Pulse Rate 2021-01-12 06:42:32 130 /min Respiratory Rate 2021-01-12 06:42:32 18 /min Temperature 2021-01-12 06:42:32 37.1\S\98.8 Weight 2021-01-12 06:42:32 57455\S\2186.986 02 Sat by Pulse Oximetry 2021-01-12 06:33:54 99 /min Pulse Rate 2021-01-12 06:33:54 130 /min Respiratory Rate 2021-01-12 06:33:54 18 /min Temperature 2021-01-12 06:33:54 37.1\S\98.8 Weight 2021-01-12 06:33:54 13495\S\2186.986 02 Sat by Pulse Oximetry 2021-01-12 06:17:07 99 /min Pulse Rate 2021-01-12 06:17:07 130 /min Respiratory Rate 2021-01-12 06:17:07 18 /min Temperature 2021-01-12 06:17:07 37.1\S\98.8 Weight 2021-01-12 06:17:07 32702\S\2186.986 02 Sat by Pulse Oximetry 2021-01-12 05:57:17 99 /min Pulse Rate 2021-01-12 05:57:17 130 /min Respiratory Rate 2021-01-12 05:57:17 18 /min Temperature 2021-01-12 05:57:17 37.1\S\98.8 Weight 2021-01-12 05:57:17 28178\S\2186.986 02 Sat by Pulse Oximetry 2021-01-12 05:55:15 99 /min Pulse Rate 2021-01-12 05:55:15 130 /min Respiratory Rate 2021-01-12 05:55:15 18 /min Temperature 2021-01-12 05:55:15 37.1\S\98.8 Weight 2021-01-12 05:55:15 07639\S\2186.986 WEIGHT 2021-01-12 05:52:00 62 kg Respiratory 2021-01-08 10:42:16 No respiratory distress /min 02 Sat by Pulse Oximetry 2021-01-08 10:42:16 99 /min Body Mass Index 2021-01-08 10:42:16 20.5 Height 2021-01-08 10:42:16 187.96\S\74 Pulse Rate 2021-01-08 10:42:16 96 /min Respiratory Rate 2021-01-08 10:42:16 20 /min Temperature 2021-01-08 10:42:16 36.9\S\98.4 Weight 2021-01-08 10:42:16 79633.779\S\2560 Weight Measurement Method 2021-01-08 10:42:16 Estimated by Patient Respiratory 2021-01-08 08:51:45 No respiratory distress /min 02 Sat by Pulse Oximetry 2021-01-08 08:51:45 99 /min Body Mass Index 2021-01-08 08:51:45 20.5 Height 2021-01-08 08:51:45 187.96\S\74 Pulse Rate 2021-01-08 08:51:45 96 /min Respiratory Rate 2021-01-08 08:51:45 20 /min Temperature 2021-01-08 08:51:45 36.9\S\98.4 Weight 2021-01-08 08:51:45 27841.779\S\2560 Weight Measurement Method 2021-01-08 08:51:45 Estimated by Patient Respiratory 2021-01-06 14:40:40 No respiratory distress /min 02 Sat by Pulse Oximetry 2021-01-06 14:40:40 99 /min Body Mass Index 2021-01-06 14:40:40 20.5 Height 2021-01-06 14:40:40 187.96\S\74 Pulse Rate 2021-01-06 14:40:40 96 /min Respiratory Rate 2021-01-06 14:40:40 20 /min Temperature 2021-01-06 14:40:40 36.9\S\98.4 Weight 2021-01-06 14:40:40 97025.779\S\2560 Weight Measurement Method 2021-01-06 14:40:40 Estimated by Patient Respiratory 2021-01-06 14:33:59 No respiratory distress /min 02 Sat by Pulse Oximetry 2021-01-06 14:33:59 99 /min Body Mass Index 2021-01-06 14:33:59 20.5 Height 2021-01-06 14:33:59 187.96\S\74 Pulse Rate 2021-01-06 14:33:59 96 /min Respiratory Rate 2021-01-06 14:33:59 20 /min Temperature 2021-01-06 14:33:59 36.9\S\98.4 Weight 2021-01-06 14:33:59 64437.779\S\2560 Weight Measurement Method 2021-01-06 14:33:59 Estimated by Patient Respiratory 2021-01-06 14:02:09 No respiratory distress /min 02 Sat by Pulse Oximetry 2021-01-06 14:02:09 99 /min Body Mass Index 2021-01-06 14:02:09 20.5 Height 2021-01-06 14:02:09 187.96\S\74 Pulse Rate 2021-01-06 14:02:09 96 /min Respiratory Rate 2021-01-06 14:02:09 20 /min Temperature 2021-01-06 14:02:09 36.9\S\98.4 Weight 2021-01-06 14:02:09 93429.779\S\2560 Weight Measurement Method 2021-01-06 14:02:09 Estimated by Patient Respiratory 2021-01-06 13:52:46 No respiratory distress /min 02 Sat by Pulse Oximetry 2021-01-06 13:52:46 99 /min Body Mass Index 2021-01-06 13:52:46 20.5 Height 2021-01-06 13:52:46 187.96\S\74 Pulse Rate 2021-01-06 13:52:46 96 /min Respiratory Rate 2021-01-06 13:52:46 20 /min Temperature 2021-01-06 13:52:46 36.9\S\98.4 Weight 2021-01-06 13:52:46 93252.779\S\2560 Weight Measurement Method 2021-01-06 13:52:46 Estimated by Patient 02 Sat by Pulse Oximetry 2021-01-06 13:47:08 99 /min Body Mass Index 2021-01-06 13:47:08 20.5 Height 2021-01-06 13:47:08 187.96\S\74 Pulse Rate 2021-01-06 13:47:08 96 /min Respiratory Rate 2021-01-06 13:47:08 20 /min Temperature 2021-01-06 13:47:08 36.9\S\98.4 Weight 2021-01-06 13:47:08 75875.779\S\2560 Weight Measurement Method 2021-01-06 13:47:08 Estimated by Patient Respiratory 2021-01-06 13:47:08 No respiratory distress /min 02 Sat by Pulse Oximetry 2021-01-06 13:13:47 99 /min Body Mass Index 2021-01-06 13:13:47 20.5 Height 2021-01-06 13:13:47 187.96\S\74 Pulse Rate 2021-01-06 13:13:47 96 /min Respiratory Rate 2021-01-06 13:13:47 20 /min Temperature 2021-01-06 13:13:47 36.9\S\98.4 Weight 2021-01-06 13:13:47 46038.779\S\2560 Weight Measurement Method 2021-01-06 13:13:47 Estimated by Patient 02 Sat by Pulse Oximetry 2021-01-06 13:04:01 99 /min Body Mass Index 2021-01-06 13:04:01 20.5 Height 2021-01-06 13:04:01 187.96\S\74 Pulse Rate 2021-01-06 13:04:01 96 /min Respiratory Rate 2021-01-06 13:04:01 20 /min Temperature 2021-01-06 13:04:01 36.9\S\98.4 Weight 2021-01-06 13:04:01 11221.779\S\2560 Weight Measurement Method 2021-01-06 13:04:01 Estimated by Patient WEIGHT 2021-01-06 12:58:00 72.413491 kg HEIGHT 2021-01-06 12:58:00 187.96 cm Procedures Procedure Date / Time Performed Performing Clinician Formerly [facility] 2007-11-25 00:00:00 Talya Webb Plan of Care Planned Activity Planned Date Details Comments Source Future Scheduled Test Plan Of Treatment [facility] Entries excluded/not [facility]ic Ctr available [code = Plan Of Treatment Entries excluded/not available] Encounters Start End Encounter Admission Attending Care Care Encounter Source Date/Time Date/Time Type Type Clinicians Facility Department ID 2021-04-03 Outpatient KIMBERLEY, [facility] [id number] [facility] 14:33:27 GIACOMO 2021-04-25 2021-04-25 [facility] [id number] [place] 11:07:00 21:23:00 [facility] 2021-04-25 2021-04-25 [facility] [id number] [place] 14:47:02 14:47:02 [facility] 2021-04-24 2021-04-24 [facility] [id number] [place] 15:42:34 23:59:00 SUJATH [facility] 2021-04-18 2021-04-24 [facility] [id number] [place] 12:03:00 02:16:00 Health 2021-04-02 2021-04-02 [id number] [place] 10:39:05 23:59:00 [facility] 2021-04-02 2021-04-02 Emergency TEJAL ABBOTT [facility] [id number] [place] 03:44:00 09:33:00 Health 2021-04-01 2021-04-01 Outpatient SCOOBYLELO[facility] [id number] [place] 14:26:45 23:59:00 [facility] 2021-03-19 2021-03-20 [facility] [id number] [place] 18:30:00 01:33:00 [facility] 2021-03-19 2021-03-19 Emergency VANE[facility] [id number] [place] 09:53:00 15:43:00 [facility] 2021-03-19 2021-03-19 [facility] [id number] [place] 08:03:02 08:03:02 [facility] 2021-03-19 2021-03-19 Emergency REYNA, [facility] [id number] [place] 06:15:54 06:15:54 [facility] 2021-02-21 2021-03-05 [facility] [id number] [place] 01:00:00 23:00:00 [facility] 2021-02-26 2021-02-26 Outpatient KIERRA, [facility] [id number] [facility] 00:00:00 00:00:00 [facility] 2021-02-19 2021-02-20 [facility] [id number] [place] 22:44:00 12:50:00 [facility] 2021-02-19 2021-02-19 [facility] [id number] [place] 00:00:00 00:00:00 [facility] 2021-02-18 2021-02-18 Outpatient [facility] [id number] [place] 00:00:00 00:00:00 [facility] 2021-02-17 2021-02-17 Outpatient [facility] [id number] [facility] 00:00:00 00:00:00 2021-02-14 2021-02-14 Outpatient [facility]ANUEL[facility] [id number] [place] 00:00:00 00:00:00 JORGE Heal 2021-02-06 2021-02-06 Emergency REIAN[facility] [id number] [place] 12:08:00 12:21:[facility] 2021-01-29 2021-01-29 Outpatient SIERRA, [facility] [id number] [place] 00:00:00 00:00:00 [facility] 2021-01-21 2021-01-21 Emergency MARC VALERIO [facility] [id number] [place] 04:58:00 18:11:00 [facility] 2021-01-20 2021-01-21 Emergency MARIA ELENA[facility] [id number] [place] 16:21:00 03:11:00 ASA Malagon 2021-01-16 2021-01-17 [facility] [id number] [place] 23:04:00 04:08:00 PRIYANKA [facility] 2021-01-16 2021-01-16 [facility] [id number] [place] 13:14:00 13:43:00 [facility] 2021-01-15 2021-01-15 Inpatient Andrews, 1 [facility]- [id number] [place] 11:13:00 13:43:00 Sunshine Michaels 77 Count y [facility] 2021-01-11 2021-01-11 [facility] [id number] [place] 20:20:00 20:37:00 [facility] 2021-01-11 2021-01-11 Emergency [facility] [id number] [place] 13:45:00 16:43:00 [facility] 2021-01-10 2021-01-10 [facility] [id number] [place] 12:47:00 18:59:00 [facility] 2007-11-13 2007-11-29 Inpatient Jon, 1 [facility]-74- [id number] [place] 17:50:00 06:00:00 Talya A A 85 [place] unty [facility]ia [facility] 2007-10-22 2007-11-02 Inpatient MaribelVickilaura 1 [facility]2E-84- [id number] [place] 11:30:00 12:00:00 A [facility] [place] [facility] 2005-01-30 2005-02-11 Inpatient Gummattira, 1 [facility]-75- [id number] [place] 09:49:00 10:29:00 Geni A 10 [place] [facility] 2005-01-13 2005-01-22 Recurring Perry, 1 [id number] [place] 10:16:00 09:55:00 Outpt [facility] 19 Coun ty Psychia tr[facility] 2003-10-29 2003-11-07 Inpatient Luis Manuel López 1 [facility]-79- [id number] [place] 20:58:00 13:45:00 B 89 [facility] Psychia tric [facility] 2001-12-28 2002-01-10 Inpatient Luis Manuel López 1 [facility]-61- [id number] [place] 11:09:00 17:00:00 A 16 [facility] Psychia tric [facility] 2001-08-05 2001-08-05 Recurring Pulido, 1 [id number] [place] 09:00:00 14:58:00 Outpt Osmani 03 [facility] Psychia tric [facility] 2001-07-06 2001-08-05 Recurring Pulido, 1 [id number] [place] 12:26:00 09:00:00 Outpt Osmani 27 [facility] Psychia tric [facility] 2001-06-15 2001-07-05 Inpatient Jon, 1 [facility]-3B-77- [id number] [place] 17:02:00 14:03:00 Talya Lambert 07 Co unt Psychia tric [facility] 1999-09-18 1999-10-02 Inpatient Derrell, 1 [facility]-2C-14- [id number] [place] 15:54:00 10:26:00 Johnny Lambert 95 [facility] Psychia tric [facility] 1995-02-15 1995-02-23 Inpatient Steven Barros 1 [facility]-21- [id number] [place] 15:00:00 13:00:00 A 01 [facility] Psychia tric [facility] 1987-08-06 1987-09-17 Inpatient RAMONA, 1 [facility]-1D-29- [id number] [place] 09:00:00 16:00:00 GENE L B 79 [facility] Psychia tric [facility] Results Test Description Test Time Test Comments Results Result Comments Source [facility] 2007-11-25 12:19:28 Test Item Value Reference Range Interpretation Comme nts [facility] (test code = 0.6 mmol/L D etection Limit = 0.1 LithiumLevel) <0.1 indicates None Detected [id number] 14:20:51 Test Item Value Reference Range Interpretation Comments Specific [place] (test 1.011 code = SpecificGravity) pH (test [...] MicroscopicExam) follows if indicated. Thyroid Panel with [id number] 11:22:58 Test Item Value Reference Range Interpretation Comments TSH, High Sensitivity, Serum 0.427 {uIU/mL} (test code = TSH,HighSensitivity,Serum) Thyroxine (test code = 5.4 ug/dL Thyroxine) T3 Uptake (test code = 37 % V6Cskxsj) Free Thyroxine Index (test 2.0 code = FreeThyroxineIndex) Urine Microscopic [id number] 13:09:38 Test Item Value Reference Range Interpretation Comments WBC/HPF (test code = WBC/HPF) 0-5 RBC/HPF (test code = RBC/HPF) 0-3 Epithelial Cells (non-renal) 0-10 (test code = EpithelialCells(non-renal)) Bacteria (test code = Bacteria) None seen [id number] 07:30:07 Test Item Value Reference Range Interpretation Comments Specific [place] (test 1.012 code = SpecificGravity) pH (test [...] follows if indicated. Drug Screen, Urine # [id number] 12:19:53 Test Item Value Reference Interpretation Comments [...] the clinicalmanagement of patients in certain situations. [facility] drug testing programs, preliminary positivefindings should always be confirmed by an alternativemethod. Some juey-spq-uznrttq medications, as well asadulterants, may cause inaccurate results. Screen Onlytesting does not meet the College of Swiss PathologistsForensic Urine Drug Testing Program require-ments as aforensic urine drug test for workplace testing. Allclients must ensure that their testing program conformsto applicable state and federal laws and employmentagreements. TSH, High Sensitivity, [id number] 13:09:40 Test Item Value Reference Range Interpretation Comments TSH, High Sensitivity, Serum 0.339 {uIU/mL} (test code = TSH,HighSensitivity,Serum) [id number] 13:09:39 Test Item Value Reference Range Interpretation Comments Specific [place] (test 1.010 code = SpecificGravity) pH (test [...] follows if indicated. CBC w/ Diff w/ [id number] 12:10:49 Test Item Value Reference Range Interpretation [...] 0.0 {x10E3/uL} code = Basophils(Absolute)) Comprehensive Metabolic [id number] 12:10:49 Test Item Value Reference Range Interpretation [...] code = ALT) 38 {IU/L} Valproic Acid [id number] 17:06:08 Test Item Value Reference Range Interpretation Comments Valproic Acid Level 74 ug/mL Toxicity may occur at (test code = levels of 100-5 00. ValproicAcidLevel) Measureme nts of free unbou nd valproic acid m ay improve the ass ess- ment of clinical respon se. . Detecti on Limit = 4 Valproic Acid [id number] 16:33:03 Test Item Value Reference Range Interpretation Comments Valproic Acid Level 52 ug/mL Toxicity may occur at (test code = levels of 100-5 00. ValproicAcidLevel) Measureme nts of free unbou nd valproic acid m ay improve the ass ess- ment o f clinical respon se. . Detecti on Limit = 4 TSH, High Sensitivity, [id number] 16:32:09 Test Item Value Reference Range Interpretation Comments TSH, High Sensitivity, Serum 3.057 {uIU/mL} (test code = TSH,HighSensitivity,Serum) Drug Screen, Urine # [id number] 16:31:52 Test Item Value Reference Range Interpretation [...] always be confirmed by an alternative method.Some mgvr-fjj-fjyzlox medications, as well as adulterants, may causeinaccurate results. Screen Only testing does not meet the College ofAmerican Pathologists Forensic Urine Drug Testing Program require-ments as a forensic urine drug test for workplace testing. Allclients must ensure that their testing program conforms to applicablestate and federal laws and employment agreements. Comprehensive Metabolic [id number] 16:34:42 Test Item Value Reference Range Interpretation [...] ALT) 35 {IU/L} CBC w/ Diff w/ [id number] 16:34:41 Test Item Value Reference Range Interpretation [...] 0.0 {x10E3/uL} code = Basophils(Absolute)) Valproic Acid [id number] 16:34:30 Test Item Value Reference Range Interpretation Comments Valproic Acid Level 40 ug/mL Toxicity may occur at (test code = levels of 100-5 00. ValproicAcidLevel) Measureme nts of free unbou nd valproic acid m ay improve the ass ess- ment o f clinical respon se. . Detecti on Limit = 4 [id number] 16:33:20 Test Item Value Reference Range Interpretation Comments Specific [place] (test 1.018 code = SpecificGravity) pH (test [...] = MicroscopicExam) follows if indicated. Comprehensive Metabolic [id number] 10:35:42 Test Item Value Reference Range Interpretation [...] = 13 {IU/L} ALT) TSH, High Sensitivity, [id number] 10:35:42 Test Item Value Reference Range Interpretation Comments TSH, High Sensitivity, Serum 1.058 {uIU/mL} (test code = TSH,HighSensitivity,Serum) CBC w/ Diff w/ [id number] 10:35:41 Test Item Value Reference Range Interpretation [...] {X 10-3/uL} code = Basophils(Absolute)) Drug Screen, [id number] 10:35:36 Test Item Value Reference Interpretation Comments [...] always beconfirmed by an alternative method. Some vxsb-cir-bzokkll medications, as well as adulterants, maycause inaccurate results. Screen Only testing doesnot meet the College of [employer] Path[employer] For-ensic Urine Drug Testing Program requirements as aforensic urine drug test for workplace testing. Allclients must ensure that their testing programconforms to applicable state and federal laws andemployment agreements. . [id number] 10:35:34 Test Item Value Reference Range Interpretation Comments Specific [place] (test 1.007 code = SpecificGravity) pH (test [...]
[2022-02-28] MEDS ORDERED: ONDANSETRON 4 MG/2 ML VIAL ONE (15:58)
[2022-02-28] MEDS ORDERED: KETOROLAC 30 MG/ML INJ ONE (15:58)
[2022-02-28] MEDS ORDERED: NA CHLORIDE 0.9% 1,000 ML ONE (15:58)
[2022-02-28 16:42] LABS: Absolute Lymphocytes (CBC) 1.2 K/uL (0.7-4.9); Hematocrit 45.1 % (39.6-49.0); Lymphocytes % 12.5 % (15.3-44.8); RBC Red Blood Cell Count 4.98 M/uL (4.33-5.43)
--- NOTE | 2022-02-28 16:44 | RAD REPORT ---
EXAM DESCRIPTION: RAD - Tib Fib Right - 02/28/2022 4:10 pm CLINICAL HISTORY: PAIN COMPARISON: No comparisons FINDINGS: Deformity of the proximal tibial and fibular diaphysis consistent with healed remote traum a. No acute fractures seen. IMPRESSION: No acute osseous abnormality involving the tibia or fibula.
[2022-02-28 16:45] LABS: Urine Blood Negative (Negative); Urine Glucose Negative (Negative); Urine Protein Negative (Negative); Urine Specific Gravity 1.015 (1.005-1.030)
[2022-02-28 16:53] LABS: Protime INR 1.04
[2022-02-28 17:02] LABS: ALT/SGPT 18 U/L (12-78); AST/SGOT 22 U/L (15-37); Alkaline Phosphatase 97 U/L (45-117); BUN Blood Urea Nitrogen 14 mg/dL (7-18); Bicarbonate 25 mmol/L (21-32); Bilirubin Direct 0.1 mg/dL (0-0.2); Bilirubin Total 0.4 mg/dL (0.2-1.0); Glucose Level 102 mg/dL (74-106); Potassium 3.6 mmol/L (3.5-5.1); Sodium Level 138 mmol/L (136-145)
[2022-02-28 17:12] LABS: Barbiturates NEGATIVE (NEGATIVE); Benzodiazepines NEGATIVE (NEGATIVE); Cocaine NEGATIVE (NEGATIVE); METHAMPHETAM NEGATIVE (NEGATIVE); Methadone NEGATIVE (NEGATIVE); Opiates NEGATIVE (NEGATIVE); Phencyclidine NEGATIVE (NEGATIVE); THC Cannibis POSITIVE (NEGATIVE)
--- NOTE | 2022-02-28 17:15 | ER ---
Nurse's Notes [facility] Name: Bob Cuenca Age: 46 yrs Sex: Male : 1975 Arrival Date: 02/28/2022 Time: 15:39 Bed 7 Private MD: Diagnosis: Bipolar disorder, unspecified;Pain in right lower leg;Adjustment disorder with anxiety Presentation: 02/28 15:48 Chief complaint: Patient states: pt stated that he injuried his right leg and stub his garcia toe. pt reported taking unknown medications and unknown amount. pt reported wanted to kill self bc life is too hard and otilio is his grandmoms anniversary and he wants to be with his mom. Coronavirus screen: Vaccine status: Patient reports receiving the 2nd dose of the covid vaccine. Ebola Screen: Patient denies travel to an Ebola-affected area in the 21 days before illness onset. Initial Sepsis Screen: Does the patient meet any 2 criteria? No. Patient's initial sepsis screen is negative. Does the patient have a suspected source of infection? No. Patient's initial sepsis screen is negative. Risk Assessment: Do you want to hurt yourself or someone else? Patient reports desire/thoughts of hurting themselves or someone else. Provider notified. Onset of symptoms was February 28, 2022. 15:48 Method Of Arrival: EMS: [facility] 15:48 Acuity: MALIA 2 garcia Triage Assessment: 15:54 General: Appears uncomfortable, Behavior is agitated, uncooperative. Pain: Complains of garcia pain in right leg. Historical: - Allergies: 16:30 No Known Allergies; jl7 - PMHx: 15:53 ADD/ADHD; Anxiety; Bipolar disorder; garcia - Immunization history:: Adult Immunizations unknown. - Social history:: Smoking status: Patient reports the use of cigarette tobacco products, smokes one-half pack cigarettes per day. Screenin:53 Abuse screen: Denies threats or abuse. Denies injuries from another. Nutritional garcia screening: No deficits noted. Tuberculosis screening: No symptoms or risk factors identified. Fall Risk None identified. Psych: 18:54 [facility] Suicide Severity Screening: In the past month, have you wished you were garcia or wished you could go to sleep and not wake up? Patient responds "yes." "In the past month, have you actually had any thoughts of killing yourself?" Patient responds "yes." "In your lifetime, have you ever done anything, started to do anything, or prepared to do anything to end your life?" Patient responds "yes.". Subjective: Patient's mood is irritable, Delusions are roman catholic, Hallucinations are suspected, Having thoughts of suicide. Objective: Patient is irritable. Interventions: Removed personal items and placed in bag. Patient placed in hospital gown. Urine collected and sent for urine drug test. Safety Checks: Personal items have been removed. Door is open. No visitors are present at this time. Pt denies substance abuse. Commitment: Patient will be a voluntary commitment. Vital Signs: 15:48 BP 166 / 116; Pulse 119; Resp 20; Temp 98.1(T); Pulse Ox 99% on R/A; Weight 79.38 kg; garcia Height 6 ft. 2 in. (187.96 cm); 15:48 Body Mass Index 22.47 (79.38 kg, 187.96 cm) garcia ED Course: 15:39 Patient arrived in ED. em1 15:39 Tristan El MD is Attending Physician. saray 15:51 Triage completed. garcia 15:54 Arm band placed on right wrist. garcia 16:07 Safety checks: Sitter present: Yes. mb7 16:07 Placed in gown. Bed in low position. Side rails up X 1. mb7 16:07 Inserted saline lock: 20 gauge in right antecubital area, using aseptic technique. mb7 Blood collected. 16:12 Tib Fib Right XRAY In Process Unspecified. EDMS 16:18 EKG done, by ED staff, reviewed by Tristan El MD. mb7 16:35 Safety checks: Items removed: yes. Sitter at bedside. mb7 18:24 Noy Mcmanus, REE is Primary Nurse. jl7 18:38 Rene Amos DO is Referral Physician. saray 18:53 No provider procedures requiring assistance completed. garcia 18:56 IV discontinued, intact, Pressure dressing applied. garcia Administered Medications: 16:20 Drug: NS 0.9% 1000 ml Route: IV; Rate: 1 bolus; Site: right antecubital; jg9 16:20 Drug: Ketorolac 15 mg Route: IVP; Site: right antecubital; jg9 16:32 Follow up: Response: No adverse reaction jg9 16:32 Follow up: Response: No adverse reaction jg9 16:20 Drug: Zofran (Ondansetron) 4 mg Route: IVP; Site: right antecubital; jg9 16:32 Follow up: Response: No adverse reaction jg9 Outcome: 17:14 Discharge ordered by . saray 18:53 Discharged to home garcia 18:53 Condition: good 18:53 Discharge instructions given to patient, taxi was provided to take PT home Prescriptions given X 2. 18:59 Patient left the ED. garcia Signatures: Dispatcher [employer] EDMS Tristan El MD MD cha Martinez, Jerzy em1 Maryann Allison RN RN jl7 Herlinda Mckinley 7 Roma Rodriguez RN RN jg9 Au-StagerNoy RN RN garcia Corrections: (The following items were deleted from the chart) 16:00 15:48 Chief complaint: Patient states: pt reported taking unknown medications and garcia unknown amount. pt reported wanted to kill self bc life is too hard and easter is his moms anniversary and he wants to be with his mom. garcia 16:08 16:07 Patient has correct armband on for positive identification. Placed in gown. Bed mb7 in low position. Call light in reach. Side rails up X 1. mb7
--- NOTE | 2022-02-28 17:16 | EDPHYS ---
Physician Documentation [facility] Name: Bob Cuenca Age: 46 yrs Sex: Male : 1975 Arrival Date: 02/28/2022 Time: 15:39 Bed 7 Private MD: ED Physician Tristan El HPI: 02/28 16:00 This 46 yrs old Male presents to ER via EMS with complaints of upset, saray possible suicidal and right leg pain. Historical: - Allergies: 16:30 No Known Allergies; jl7 - PMHx: 15:53 ADD/ADHD; Anxiety; Bipolar disorder; garcia - Immunization history:: Adult Immunizations unknown. - Social history:: Smoking status: Patient reports the use of cigarette tobacco products, smokes one-half pack cigarettes per day. ROS: 16:03 Constitutional: Negative for fever, chills, and weight loss, Eyes: Negative for injury, saray pain, redness, and discharge, ENT: Negative for injury, pain, and discharge, Neck: Negative for injury, pain, and swelling, Cardiovascular: Negative for chest pain, palpitations, and edema, Respiratory: Negative for shortness of breath, cough, wheezing, and pleuritic chest pain, Abdomen/GI: Negative for abdominal pain, nausea, vomiting, diarrhea, and constipation, Back: Negative for injury and pain, : Negative for injury, bleeding, discharge, and swelling, MS/Extremity: Negative for injury and deformity, Skin: Negative for injury, rash, and discoloration, Neuro: Negative for headache, weakness, numbness, tingling, and seizure, Allergy/Immunology: Negative for hives, rash, and allergies, Endocrine: Negative for neck swelling, polydipsia, polyuria, polyphagia, and marked weight changes, Hematologic/Lymphatic: Negative for swollen nodes, abnormal bleeding, and unusual bruising. 16:03 MS/extremity: Positive for pain, of the right kidd. 16:03 Psych: Positive for anxiety, depression, suicidal ideation. Exam: 16:03 Constitutional: This is a well developed, well nourished patient who is awake, alert, saray and in no acute distress. Head/Face: Normocephalic, atraumatic. Eyes: Pupils equal round and reactive to light, extra-ocular motions intact. Lids and lashes normal. Conjunctiva and sclera are non-icteric and not injected. Cornea within normal limits. Periorbital areas with no swelling, redness, or edema. ENT: Nares patent. No nasal discharge, no septal abnormalities noted. Tympanic membranes are normal and external auditory canals are clear. Oropharynx with no redness, swelling, or masses, exudates, or evidence of obstruction, uvula midline. Mucous membranes moist. Neck: Trachea midline, no thyromegaly or masses palpated, and no cervical lymphadenopathy. Supple, full range of motion without nuchal rigidity, or vertebral point tenderness. No Meningismus. Chest/axilla: Normal chest wall appearance and motion. Nontender with no deformity. No lesions are appreciated. Cardiovascular: Regular rate and rhythm with a normal S1 and S2. No gallops, murmurs, or rubs. Normal PMI, no JVD. No pulse deficits. Respiratory: Lungs have equal breath sounds bilaterally, clear to auscultation and percussion. No rales, rhonchi or wheezes noted. No increased work of breathing, no retractions or nasal flaring. Abdomen/GI: Soft, non-tender, with normal bowel sounds. No distension or tympany. No guarding or rebound. No evidence of tenderness throughout. Back: No spinal tenderness. No costovertebral tenderness. Full range of motion. Male : Normal genitalia with no discharge or lesions. Skin: Warm, dry with normal turgor. Normal color with no rashes, no lesions, and no evidence of cellulitis. MS/ Extremity: Pulses equal, no cyanosis. Neurovascular intact. Full, normal range of motion. Neuro: Awake and alert, GCS 15, oriented to person, place, time, and situation. Cranial nerves II-XII grossly intact. Motor strength 5/5 in all extremities. Sensory grossly intact. Cerebellar exam normal. Normal gait. Psych: Awake, alert, with orientation to person, place and time. Behavior, mood, and affect are within normal limits. 16:34 ECG was reviewed by the Attending Physician. [facility] Vital Signs: 15:48 BP 166 / 116; Pulse 119; Resp 20; Temp 98.1(T); Pulse Ox 99% on R/A; Weight 79.38 kg; garcia Height 6 ft. 2 in. (187.96 cm); 15:48 Body Mass Index 22.47 (79.38 kg, 187.96 cm) garcia MDM: 15:39 Patient medically screened. saray 16:04 Differential diagnosis: closed fracture, contusion, abrasion, tendonitis, drug saray withdrawal. acute psychotic break, depression, psychosis secondary to non-compliance. Data reviewed: vital signs, nurses notes, lab test result(s), EKG, radiologic studies. Data interpreted: animal cytologist: rate is 119 beats/min, rhythm is regular, Pulse oximetry: on room air is 99 %. Test interpretation: by ED physician or midlevel provider: ECG. Test interpretation: by ED physician or midlevel provider: plain radiologic studies. Counseling: I had a detailed discussion with the patient and/or guardian regarding: the historical points, exam findings, and any diagnostic results supporting the discharge/admit diagnosis, lab results, radiology results. 17:05 ED course: pt is without thoughts, gets sad every Easter, no suicidal , will follow up saray with pain management. 02/28 15:40 Order name: Acetaminophen; Complete Time: 17:13 saray 02/28 15:40 Order name: Basic Metabolic Panel; Complete Time: 17:13 saray 02/28 15:40 Order name: CBC with Diff; Complete Time: 17:02 saray 02/28 15:40 Order name: ETOH Level; Complete Time: 17:13 saray 02/28 15:40 Order name: Hepatic Function; Complete Time: 17:13 saray 02/28 15:40 Order name: PT-INR; Complete Time: 17:02 saray 02/28 15:40 Order name: Ptt, Activated; Complete Time: 17:02 saray 02/28 15:40 Order name: Salicylate [facility] 02/28 15:40 Order name: Urine Drug Screen; Complete Time: 17:13 saray 02/28 15:40 Order name: Tib Fib Right XRAY; Complete Time: 16:52 saray 02/28 16:45 Order name: Urine Dipstick-Ancillary; Complete Time: 16:52 EDMS 02/28 15:40 Order name: EKG; Complete Time: 15:41 saray 02/28 15:40 Order name: EKG - Nurse/Tech; Complete Time: 16:18 saray 02/28 15:40 Order name: IV Saline Lock; Complete Time: 16:08 02/28 15:40 Order name: Labs collected and sent; Complete Time: 16:32 [facility] 02/28 15:40 Order name: Suicide Screening ([place]) saray EC:34 Rate is 103 beats/min. Rhythm is regular. QRS Hob[place] is Normal. NC interval is normal. saray QRS interval is normal. QT interval is normal. No Q waves. T waves are Normal. No ST changes noted. Clinical impression: Sinus tachycardia and No evidence of ischemia. Interpreted by me. Reviewed by me. Administered Medications: 16:20 Drug: NS 0.9% 1000 ml Route: IV; Rate: 1 bolus; Site: right antecubital; jg9 16:20 Drug: Ketorolac 15 mg Route: IVP; Site: right antecubital; jg9 16:32 Follow up: Response: No adverse reaction jg9 16:32 Follow up: Response: No adverse reaction jg9 16:20 Drug: Zofran (Ondansetron) 4 mg Route: IVP; Site: right antecubital; jg9 16:32 Follow up: Response: No adverse reaction jg9 Disposition Summary: 02/28/22 17:14 Discharge Ordered Location: Home saray Problem: new saray Symptoms: have improved saray Condition: Fair saray Diagnosis - Bipolar disorder, unspecified saray - Pain in right lower leg saray - Adjustment disorder with anxiety saray Followup: saray - With: Private Physician - When: 2 - 3 days - Reason: Recheck today's complaints, Continuance of care, Re-evaluation by your physician Followup: saray - With: Rene Amos DO - When: 2 - 3 days - Reason: Recheck today's complaints, Continuance of care, Re-evaluation by your physician Discharge Instructions: - Discharge Summary Sheet saray - Adjustment Disorder, Adult saray - Musculoskeletal Pain saray - Substance Use Disorder saray - Alcohol Intoxication, Ywia-bi-Nawf saray - Karie saray - Supporting Someone With Bipolar Disorder saray - Substance Use Disorder and Mental Illness saray - Supporting Someone With Substance Use Disorder saray Forms: - Medication Reconciliation Form saray - Thank You Letter saray - Antibiotic Education saray - Prescription Opioid Use saray Prescriptions: - Ibuprofen 600 mg Oral Tablet - take 1 tablet by ORAL route every 6 hours As needed take with food; 20 tablet; saray Refills: 0, Product Selection Permitted Signatures: Dispatcher [employer] Tristan Mcclelland MD MD cha Leal, Jahala RN RN jl7 Roma Rodriguez RN RN jg9 Au-Stager, Noy, RN RN garcia
[2022-02-28] MEDS ORDERED: MORPHINE 2 MG/ML SYR ONE (17:17)
[2022-02-28] MEDS ORDERED: LIDOCAINE 4% PATCH ONE (17:17)
[2022-02-28 19:13] VITALS: BP 166/116; TEMP 98.1; O2SAT 99
== END 2022-02-28 18:59 | disposition home or self-care (01) ==
LOC: ER 15:38
DX: F43.22 Adjustment disorder with anxiety (principal); M79.661 Pain in right lower leg; F31.9 Bipolar disorder, unspecified; F17.210 Nicotine dependence, cigarettes, uncomplicated
CPT/HCPCS: 36415; 80048; 80076; 80307; 80320; 80329; 81003; 85025; 85610; 85730; 93005; 96374; 96375; 99285; J2270; J2405; J7030

== ENCOUNTER 2022-03-23 20:37 | Emergency (ER) | payer SELFPAY ==
--- OUTSIDE RECORDS SUMMARY | 2022-03-23 20:41 | XMS REPORT | Continuity of Care Document ---
:1975 Author Organization [facility] Address [address] [place] [address] Care Team Providers Name Role Phone KIMBERLEY [...] Expiration Date Reese ariza MEDICARE PART A [id number] 1995 00:00:00 Advance Directives Directive Decision Effective Date Termination Date Comments Sour ce Yes N/A [facility] Problems Condition Condition Condition Status Onset Resolution Last Treating Co mments Source Name Details Category Date Date Treatment Clinician Date Mild Mild 79105-4 Active 2007-2007-11-22 Mental Mental 11-22 09:49:09 Retardatio Retardatio 00:00: n nOnset: 00 22-Nov-2007 MR KING 28371-4 Active 2006-2007-10-22 Severity, Severity, 12-23 18:10:37 Unspecifie Unspecifie 00:00: d dOnset: 00 22-Oct-2007 None NoneOnset: 81023-6 Active 2004-2005-02-1002-10 14:05:25 5 00:00: 00 Mental Mental 96729-1 Active 2002-2003-11-07 Retardatn Retardatn 01-08 10:54:56 Severty Severty 00:00: Unsp UnspOnset: 00 3 None NoneOnset: 34642-5 Active 2001-2002-01-0901-09 13:26:51 2 00:00: 00 Mental Mental 28028-4 Resolve 2006-112007-11-22 2007-11-22 Retardatn Retardatn d 09:49:22 09:49:25 Severty Severty 00:00: Unsp UnspOnset: 00 7Status: Resolved as of 22-Nov-2007 9:49 Mod Mental Mod Mental 10779-0 Resolve 2007-11-22 2007-11-22 Retardatio Retardatio d 11-21 09:48:47 09:48:50 n nOnset: 00:00: 21-Nov-2007 00 Status: Resolved as of 22-Nov-2007 9:48 Allergies, Adverse Reactions, Alerts Allergy Allergy Status Severity Reaction(s) Onset Inactive Treating Comm ents Source Name Type Date Date Clinician Unable DA Active U 2020- [facility] to 01-25 Assess 00:00: 00 No [...] Date Stop Date Source Tobacco smoking consumption [facility] unknown Medications Ordered Filled Start Stop Current Ordering Indication Dosage Frequency Signature Comments Components Source Medication Medication Date Date Medication? Clinician (SIG) Name Name Motrin 600 No [id number] 1{tab(s Motrin 600 mg oral 01-15 )} mg oral tablet 11:35: tablet; 1 59 tab(s) orally every 6 hours, As Needed painQuanti ty: 0 Refills: 0Ordered: 15-Jan-2021 Mila StephenGeneric Substituti on Allowed gabapentin No [id number] 1{cap(s gabapentin 300 mg oral 01-15 )} 300 mg capsule 11:35: oral 29 capsule; 1 cap(s) orally 3 times a dayQuantit y: 0 Refills: 0Ordered: 15-Jan-2021 Mila StephenGeneric Substituti on Allowed TEGretol No [id number] 300mg TEGretol; 01-15 300 11:35: milligram( 00 s) orally 2 times a dayQuantit y: 0 Refills: 0Ordered: 15-Jan-2021 Mila StephenGeneric Substituti on Allowed Effexor XR No [id number] 1{cap(s Effexor XR 75 mg oral 01-15 )} 75 mg oral capsule, 11:34: capsule, extended 26 extended release release; 1 cap(s) orally once a dayQuantit y: 0 Refills: 0Ordered: 15-Jan-2021 Mila StephenGeneric Substituti on Allowed Benadryl 50 2006-11- No [id number] 0 Benadryl mg PO now 11-14 739256 50 mg PO 02:46: 02:46 nowQuantit 07 :07 y: 0 Refills: 0Ordered: 7Audrey De Leónrt : 7 End: 7Generic Substituti on Allowed Ambien 10 2006-11 No [id number] 0 Ambien 10 mg PO at 11-14 905390 mg PO at bedtime, 02:44: 02:44 bedtime, NPC 04 :04 NPCQuantit y: 0 Refills: 0Ordered: Audrey Birdtart : 7 End: 7Status: OtherGener ic Substituti on Allowed Glyburide 5 2006-11- No [id number] 0 Glyburide mg PO every 11-14 379430 5 mg PO morning 02:43: 02:43 every 33 :33 morningQua ntity: 0 Refills: 0Ordered: Audrey Birdrt : 7 End: 7Generic Substituti on Allowed Levothyroxi 2006-11- No [id number] 0 Levothyrox ne 100 mcg 11-14 417739 ine 100 PO every 02:42: 02:42 mcg PO morning - 28 :28 every NPC morning - NPCQuantit y: 0 Refills: 0Ordered: Audrey Birdtart : 7 End: 7Generic Substituti on Allowed Ativan 2 mg 2006-11- No [id number] 0 Ativan 2 PO now- NPC 11-14 093207 mg PO now- 02:41: 02:41 NPCQuantit 53 :53 y: 0 Refills: 0Ordered: Audrey Birdtart : 7 End: 7Generic Substituti on Allowed Seroquel 2006-11- No [id number] 0 Seroquel 600 mg 11-14 496365 600 mg daily at 02:40: 02:40 daily at bedtime- 54 :54 bedtime- NPC NPCQuantit y: 0 Refills: 0Ordered: Audrey Birdrt : 7 End: 7Status: OtherGener ic Substituti on Allowed Seroquel 2006-11- No [id number] 0 Seroquel 200 mg PO 11-14 500640 200 mg PO three times 02:36: 02:36 three daily- NPC 39 :39 times daily- NPCQuantit y: 0 Refills: 0Ordered: Audrey Birdtart : 7 End: 7Status: OtherGener ic Substituti on Allowed Celebrex 2006-11- No [id number] 0 Celebrex 100 mg 11-14 813573 100 mg capsules, 02:35: 02:35 capsules, take one 51 :51 take one capsule by capsule by mouth every mouth 8 hours as every 8 needed, hours as home needed, medications home medication sQuantity: 0 Refills: 0Ordered: Audrey Birdtart : 7 End: 7Status: OtherGener ic Substituti on Allowed Seroquel 2006-11- No [id number] 0 Seroquel 200 mg 11-14 790586 200 mg tablets, 02:34: 02:34 tablets, take 1 32 :32 take 1 tablet by tablet by mouth three mouth times daily three and three times tablets daily and every at three bedtime - tablets home every at medications bedtime - home medication sQuantity: 0 Refills: 0Ordered: Audrey Birdtart : 7 End: 7Status: OtherGener ic Substituti on Allowed Strattera 2006-11- No [id number] 0 Strattera 40 mg 11-14 225603 40 mg capsules, 02:33: 02:33 capsules, take 2 35 :35 take 2 capsule by capsule by mouth every mouth day - home every day medications - home medication sQuantity: 0 Refills: 0Ordered: Audrey Birdrt : 7 End: 7Status: OtherGener ic Substituti on Allowed Clonidine 2006-11- No [id number] 0 Clonidine 0.2 mg 11-14 290056 0.2 mg tablets, 02:32: 02:32 tablets, take one 15 :15 take one tablet by tablet by mouth four mouth four times daily times - home daily - medications home medication sQuantity: 0 Refills: 0Ordered: Audrey Birdrt : 7 End: 7Status: OtherGener ic Substituti on Allowed Levothyroxi 2006-11- No [id number] 0 Levothyrox ne 100mcg 12-23 790904 ine 14:31: 14:31 100mcg; 39 :39 home 1 orally, dailyQuant ity: 0 Refills: 0Ordered: 22-Oct-2007 Mandy Ozuna FStart: 22-Oct-2007 End: 22-Oct-2007 Status: Discontinu edGeneric Substituti on Allowed Glyburide 2006-11- No [id number] 0 Glyburide 5mg 12-23 984827 5mg; home 14:31: 14:31 1 orally , 11 :11 dailyQuan tity: 0 Refills: 0Ordered: 22-Oct-2007 Mandy Ozuna FStart: 22-Oct-2007 End: 22-Oct-2007 Status: Discontinu edGeneric Substituti on Allowed Actos 15mg 2006-11- No [id number] 0 Actos 12-23 378190 15mg; home 14:30: 14:30 1 orally 38 :38 twice dailyQuant ity: 0 Refills: 0Ordered: 22-Oct-2007 Mandy Ozuna FStart: 22-Oct-2007 End: 22-Oct-2007 Status: Discontinu edGeneric Substituti on Allowed Seroquel 2006-11- No [id number] 0 Seroquel 400mg 12-23 350863 400mg; 14:30: 14:30 home 1 01 :01 orally at bedtimeQua ntity: 0 Refills: 0Ordered: 22-Oct-2007 Mandy Ozuna FStart: 22-Oct-2007 End: 22-Oct-2007 Status: Discontinu edGeneric Substituti on Allowed Seroquel 2007-1 2007- No [id number] 0 Seroquel 200mg 12-23 297788 200mg; 14:29: 14:29 home 1 41 :41 orally every morningQua ntity: 0 Refills: 0Ordered: 22-Oct-2007 Mandy Ozuna FStart: 22-Oct-2007 End: 22-Oct-2007 Status: Discontinu edGeneric Substituti on Allowed Clonazepam 2006-11 2007- No [id number] 0 Clonazepam 1mg 12-23 844825 1mg; home 14:29: 14:29 1 orally 18 :18 twice dailyQuant ity: 0 Refills: 0Ordered: 22-Oct-2007 Mandy Ozuna FStart: 22-Oct-2007 End: 22-Oct-2007 Status: Discontinu edGeneric Substituti on Allowed Trileptal 2006-11- No [id number] 0 Trileptal 600mg 12-23 798358 600mg; 14:28: 14:28 home 1 46 :46 orally twice dailiyQuan tity: 0 Refills: 0Ordered: 22-Oct-2007 Mandy Ozuna FStart: 22-Oct-2007 End: 22-Oct-2007 Status: Discontinu edGeneric Substituti on Allowed Klonopin 2006-11- No [id number] 0 Klonopin 1mg 12-23 074793 1mg; npc 1 14:27: 14:27 orally 40 :40 0900 10/22Quanti ty: 0 Refills: 0Ordered: 22-Oct-2007 Mandy Ozuna FStart: 22-Oct-2007 End: 22-Oct-2007 Status: Discontinu edGeneric Substituti on Allowed Seroquel 2006-11 2007- No [id number] 0 Seroquel 200mg 12-23 593404 200mg; npc 14:27: 14:27 1 orally 16 :16 0900 10/22Quanti ty: 0 Refills: 0Ordered: 22-Oct-2007 Mandy Ozuna FStart: 22-Oct-2007 End: 22-Oct-2007 Status: Discontinu edGeneric Substituti on Allowed Ativan 2mg 2006-11- No [id number] 0 Ativan 12-23 401530 2mg; npc 1 14:26: 14:26 oraly 0900 55 :55 12Quant ity: 0 Refills: 0Ordered: 22-Oct-2007 LaithVickiMandy FStart: 22-Oct-2007 End: 22-Oct-2007 Status: Discontinu edGeneric Substituti on Allowed Levothyroxi 2006-11 2007- No [id number] 0 Levothyrox ne 100mcg -10-22 708156 ine 14:26: 14:26 100mcg; 10 :10 npc 1 orally 1000 10/22Quanti ty: 0 Refills: 0Ordered: 22-Oct-2007 Laith Mandy FStart: 22-Oct-2007 End: 22-Oct-2007 Status: Discontinu edGeneric Substituti on Allowed Trileptal 2006-11 2007- No [id number] 0 Trileptal 600mg -10-22 480215 600mg; npc 14:25: 14:25 1 orally 51 :51 0900 10/22Quanti ty: 0 Refills: 0Ordered: 22-Oct-2007 Mandy Ozuna FStart: 22-Oct-2007 End: 22-Oct-2007 Status: Discontinu edGeneric Substituti on Allowed Glyburide 2006-11 2007- No [id number] 0 Glyburide 5mg 12-23 954460 5mg; npc 1 14:25: 14:25 orally 21 :21 0900 10/22Quanti ty: 0 Refills: 0Ordered: 22-Oct-2007 Mandy Ozuna FStart: 22-Oct-2007 End: 22-Oct-2007 Status: Discontinu edGeneric Substituti on Allowed Trileptal 2006-11- No [id number] 0 Trileptal 600mg -10-22 580933 600mg; 1 14:24: 14:24 orally 34 :34 [...] Temperature 2021-01-27 13:42:43 36.8\S\98.2 Weight 2021-01-27 13:42:43 22920.626\S\2880 Weight Measurement Method 2021-01-27 13:42:43 Estimated by Patient 02 Sat by Pulse Oximetry 2021-01-25 14:51:01 99 /min Body Mass Index 2021-01-25 14:51:01 23.1 Height 2021-01-25 14:51:01 187.96\S\74 Pulse Rate 2021-01-25 14:51:01 80 /min Respiratory Rate 2021-01-25 14:51:01 20 /min Temperature 2021-01-25 14:51:01 36.8\S\98.2 Weight 2021-01-25 14:51:01 06350.626\S\2880 Weight Measurement Method 2021-01-25 14:51:01 Estimated by Patient 02 Sat by Pulse Oximetry 2021-01-25 11:37:46 99 /min Body Mass Index 2021-01-25 11:37:46 23.1 Height 2021-01-25 11:37:46 187.96\S\74 Pulse Rate 2021-01-25 11:37:46 80 /min Respiratory Rate 2021-01-25 11:37:46 20 /min Temperature 2021-01-25 11:37:46 36.8\S\98.2 Weight 2021-01-25 11:37:46 42089.626\S\2880 Weight Measurement Method 2021-01-25 11:37:46 Estimated by Patient 02 Sat by Pulse Oximetry 2021-01-25 11:02:06 99 /min Body Mass Index 2021-01-25 11:02:06 23.1 Height 2021-01-25 11:02:06 187.96\S\74 Pulse Rate 2021-01-25 11:02:06 80 /min Respiratory Rate 2021-01-25 11:02:06 20 /min Temperature 2021-01-25 11:02:06 36.8\S\98.2 Weight 2021-01-25 11:02:06 57044.626\S\2880 Weight Measurement Method 2021-01-25 11:02:06 Estimated by Patient 02 Sat by Pulse Oximetry 2021-01-25 10:55:59 99 /min Body Mass Index 2021-01-25 10:55:59 23.1 Height 2021-01-25 10:55:59 187.96\S\74 Pulse Rate 2021-01-25 10:55:59 80 /min Respiratory Rate 2021-01-25 10:55:59 20 /min Temperature 2021-01-25 10:55:59 36.8\S\98.2 Weight 2021-01-25 10:55:59 18413.626\S\2880 Weight Measurement Method 2021-01-25 10:55:59 Estimated by Patient 02 Sat by Pulse Oximetry 2021-01-25 10:46:19 99 /min Body Mass Index 2021-01-25 10:46:19 23.1 Height 2021-01-25 10:46:19 187.96\S\74 Pulse Rate 2021-01-25 10:46:19 80 /min Respiratory Rate 2021-01-25 10:46:19 20 /min Temperature 2021-01-25 10:46:19 36.8\S\98.2 Weight 2021-01-25 10:46:19 02301.626\S\2880 Weight Measurement Method 2021-01-25 10:46:19 Estimated by Patient 02 Sat by Pulse Oximetry 2021-01-25 10:24:57 99 /min Body Mass Index 2021-01-25 10:24:57 23.1 Height 2021-01-25 10:24:57 187.96\S\74 Pulse Rate 2021-01-25 10:24:57 80 /min Respiratory Rate 2021-01-25 10:24:57 20 /min Temperature 2021-01-25 10:24:57 36.8\S\98.2 Weight 2021-01-25 10:24:57 54768.626\S\2880 Weight Measurement Method 2021-01-25 10:24:57 Estimated by Patient Temperature 2021-01-25 10:21:23 36.8\S\98.2 Weight 2021-01-25 10:21:23 66070.626\S\2880 Weight Measurement Method 2021-01-25 10:21:23 Estimated by Patient 02 Sat by Pulse Oximetry 2021-01-25 10:21:23 99 /min Body Mass Index 2021-01-25 10:21:23 23.1 Height 2021-01-25 10:21:23 187.96\S\74 Pulse Rate 2021-01-25 10:21:23 80 /min Respiratory Rate 2021-01-25 10:21:23 20 /min 02 Sat by Pulse Oximetry 2021-01-25 10:07:08 99 /min Body Mass Index 2021-01-25 10:07:08 23.1 Height 2021-01-25 10:07:08 187.96\S\74 Pulse Rate 2021-01-25 10:07:08 80 /min Respiratory Rate 2021-01-25 10:07:08 20 /min Temperature 2021-01-25 10:07:08 36.8\S\98.2 Weight 2021-01-25 10:07:08 75243.626\S\2880 Weight Measurement Method 2021-01-25 10:07:08 Estimated by Patient WEIGHT 2021-01-25 10:03:00 81.680185 kg HEIGHT 2021-01-25 10:03:00 187.96 cm Respiratory 2021-01-24 18:55:56 No respiratory distress /min 02 Sat by Pulse Oximetry 2021-01-24 18:55:56 96 /min Body Mass Index 2021-01-24 18:55:56 18.5 Height 2021-01-24 18:55:56 185.42\S\73 Pulse Rate 2021-01-24 18:55:56 97 /min Respiratory Rate 2021-01-24 18:55:56 16 /min Temperature 2021-01-24 18:55:56 36.9\S\98.4 Weight 2021-01-24 18:55:56 35028.932\S\2240 Weight Measurement Method 2021-01-24 18:55:56 Estimated by Patient 02 Sat by Pulse Oximetry 2021-01-20 12:48:37 99 /min Body Mass Index 2021-01-20 12:48:37 24.8 Height 2021-01-20 12:48:37 185\S\72.83 Pulse Rate 2021-01-20 12:48:37 99 /min Respiratory Rate 2021-01-20 12:48:37 18 /min Temperature 2021-01-20 12:48:37 37\S\98.6 Weight 2021-01-20 12:48:37 85664\S\2998.287 02 Sat by Pulse Oximetry 2021-01-18 07:53:11 99 /min Body Mass Index 2021-01-18 07:53:11 24.8 Height 2021-01-18 07:53:11 185\S\72.83 Pulse Rate 2021-01-18 07:53:11 99 /min Respiratory Rate 2021-01-18 07:53:11 18 /min Temperature 2021-01-18 07:53:11 37\S\98.6 Weight 2021-01-18 07:53:11 89588\S\2998.287 WEIGHT 2021-01-18 07:51:00 85 kg HEIGHT 2021-01-18 07:51:00 185 cm 02 Sat by Pulse Oximetry 2021-01-18 05:49:18 99 /min Body Mass Index 2021-01-18 05:49:18 24.8 Height 2021-01-18 05:49:18 185\S\72.83 Pulse Rate 2021-01-18 05:49:18 90 /min Respiratory Rate 2021-01-18 05:49:18 18 /min Weight 2021-01-18 05:49:18 84758\S\2998.287 02 Sat by Pulse Oximetry 2021-01-18 04:25:42 98 /min Body Mass Index 2021-01-18 04:25:42 24.8 Height 2021-01-18 04:25:42 185\S\72.83 Pulse Rate 2021-01-18 04:25:42 103 /min Respiratory Rate 2021-01-18 04:25:42 18 /min Weight 2021-01-18 04:25:42 92826\S\2998.287 02 Sat by Pulse Oximetry 2021-01-18 03:14:17 98 /min Body Mass Index 2021-01-18 03:14:17 24.8 Height 2021-01-18 03:14:17 185\S\72.83 Pulse Rate 2021-01-18 03:14:17 103 /min Respiratory Rate 2021-01-18 03:14:17 18 /min Weight 2021-01-18 03:14:17 92206\S\2998.287 02 Sat by Pulse Oximetry 2021-01-18 01:11:50 98 /min Body Mass Index 2021-01-18 01:11:50 24.8 Height 2021-01-18 01:11:50 185\S\72.83 Pulse Rate 2021-01-18 01:11:50 103 /min Respiratory Rate 2021-01-18 01:11:50 18 /min Weight 2021-01-18 01:11:50 57769\S\2998.287 02 Sat by Pulse Oximetry 2021-01-18 01:03:41 98 /min Body Mass Index 2021-01-18 01:03:41 24.8 Height 2021-01-18 01:03:41 185\S\72.83 Pulse Rate 2021-01-18 01:03:41 103 /min Respiratory Rate 2021-01-18 01:03:41 18 /min Weight 2021-01-18 01:03:41 11825\S\2998.287 02 Sat by Pulse Oximetry 2021-01-18 00:25:43 98 /min Body Mass Index 2021-01-18 00:25:43 24.8 Height 2021-01-18 00:25:43 185\S\72.83 Pulse Rate 2021-01-18 00:25:43 103 /min Respiratory Rate 2021-01-18 00:25:43 18 /min Weight 2021-01-18 00:25:43 40585\S\2998.287 02 Sat by Pulse Oximetry 2021-01-18 00:24:11 98 /min Body Mass Index 2021-01-18 00:24:11 24.8 Height 2021-01-18 00:24:11 185\S\72.83 Pulse Rate 2021-01-18 00:24:11 103 /min Respiratory Rate 2021-01-18 00:24:11 18 /min Weight 2021-01-18 00:24:11 99458\S\2998.287 02 Sat by Pulse Oximetry 2021-01-18 00:20:06 98 /min Body Mass Index 2021-01-18 00:20:06 24.8 Height 2021-01-18 00:20:06 185\S\72.83 Pulse Rate 2021-01-18 00:20:06 103 /min Respiratory Rate 2021-01-18 00:20:06 18 /min Weight 2021-01-18 00:20:06 54519\S\2998.287 WEIGHT 2021-01-18 00:18:00 85 kg HEIGHT 2021-01-18 00:18:00 185 cm 02 Sat by Pulse Oximetry 2021-01-14 08:02:00 96 /min Body Mass Index 2021-01-14 08:02:00 18.5 Height 2021-01-14 08:02:00 185.42\S\73 Pulse Rate 2021-01-14 08:02:00 97 /min Respiratory Rate 2021-01-14 08:02:00 16 /min Temperature 2021-01-14 08:02:00 36.9\S\98.4 Weight 2021-01-14 08:02:00 69117.932\S\2240 Weight Measurement Method 2021-01-14 08:02:00 Estimated by [...] Temperature 2021-01-14 08:01:29 36.9\S\98.4 Weight 2021-01-14 08:01:29 42853.932\S\2240 Weight Measurement Method 2021-01-14 08:01:29 Estimated by Patient Respiratory 2021-01-13 06:17:23 No respiratory distress /min 02 Sat by Pulse Oximetry 2021-01-13 06:17:23 96 /min Body Mass Index 2021-01-13 06:17:23 18.5 Height 2021-01-13 06:17:23 185.42\S\73 Pulse Rate 2021-01-13 06:17:23 97 /min Respiratory Rate 2021-01-13 06:17:23 16 /min Temperature 2021-01-13 06:17:23 36.9\S\98.4 Weight 2021-01-13 06:17:23 89757.932\S\2240 Weight Measurement Method 2021-01-13 06:17:23 Estimated by Patient Respiratory 2021-01-12 13:59:38 No respiratory distress /min 02 Sat by Pulse Oximetry 2021-01-12 13:59:38 96 /min Body Mass Index 2021-01-12 13:59:38 18.5 Height 2021-01-12 13:59:38 185.42\S\73 Pulse Rate 2021-01-12 13:59:38 97 /min Respiratory Rate 2021-01-12 13:59:38 16 /min Temperature 2021-01-12 13:59:38 36.9\S\98.4 Weight 2021-01-12 13:59:38 55433.932\S\2240 Weight Measurement Method 2021-01-12 13:59:38 Estimated by Patient Respiratory 2021-01-12 11:14:42 No respiratory distress /min 02 Sat by Pulse Oximetry 2021-01-12 11:14:42 96 /min Body Mass Index 2021-01-12 11:14:42 18.5 Height 2021-01-12 11:14:42 185.42\S\73 Pulse Rate 2021-01-12 11:14:42 97 /min Respiratory Rate 2021-01-12 11:14:42 16 /min Temperature 2021-01-12 11:14:42 36.9\S\98.4 Weight 2021-01-12 11:14:42 84473.932\S\2240 Weight Measurement Method 2021-01-12 11:14:42 Estimated by Patient 02 Sat by Pulse Oximetry 2021-01-12 11:05:02 96 /min Body Mass Index 2021-01-12 11:05:02 18.5 Height 2021-01-12 11:05:02 185.42\S\73 Pulse Rate 2021-01-12 11:05:02 97 /min Respiratory Rate 2021-01-12 11:05:02 16 /min Temperature 2021-01-12 11:05:02 36.9\S\98.4 Weight 2021-01-12 11:05:02 38899.932\S\2240 Weight Measurement Method 2021-01-12 11:05:02 Estimated by Patient Respiratory 2021-01-12 11:05:01 No respiratory distress /min 02 Sat by Pulse Oximetry 2021-01-12 07:15:05 99 /min Body Mass Index 2021-01-12 07:15:05 18.5 Height 2021-01-12 07:15:05 185.42\S\73 Pulse Rate 2021-01-12 07:15:05 113 /min Respiratory Rate 2021-01-12 07:15:05 20 /min Temperature 2021-01-12 07:15:05 37.1\S\98.8 Weight 2021-01-12 07:15:05 09561.932\S\2240 Weight Measurement Method 2021-01-12 07:15:05 Estimated by Patient 02 Sat by Pulse Oximetry 2021-01-12 06:51:11 99 /min Body Mass Index 2021-01-12 06:51:11 18.5 Height 2021-01-12 06:51:11 185.42\S\73 Pulse Rate 2021-01-12 06:51:11 113 /min Respiratory Rate 2021-01-12 06:51:11 20 /min Temperature 2021-01-12 06:51:11 37.1\S\98.8 Weight 2021-01-12 06:51:11 83858.932\S\2240 Weight Measurement Method 2021-01-12 06:51:11 Estimated by Patient 02 Sat by Pulse Oximetry 2021-01-12 06:47:38 99 /min Body Mass Index 2021-01-12 06:47:38 18.5 Height 2021-01-12 06:47:38 185.42\S\73 Pulse Rate 2021-01-12 06:47:38 113 /min Respiratory Rate 2021-01-12 06:47:38 20 /min Temperature 2021-01-12 06:47:38 37.1\S\98.8 Weight 2021-01-12 06:47:38 99426.932\S\2240 Weight Measurement Method 2021-01-12 06:47:38 Estimated by Patient WEIGHT 2021-01-12 06:43:00 63.325519 kg HEIGHT 2021-01-12 06:43:00 185.42 cm 02 Sat by Pulse Oximetry 2021-01-12 06:42:32 99 /min Pulse Rate 2021-01-12 06:42:32 130 /min Respiratory Rate 2021-01-12 06:42:32 18 /min Temperature 2021-01-12 06:42:32 37.1\S\98.8 Weight 2021-01-12 06:42:32 78036\S\2186.986 02 Sat by Pulse Oximetry 2021-01-12 06:33:54 99 /min Pulse Rate 2021-01-12 06:33:54 130 /min Respiratory Rate 2021-01-12 06:33:54 18 /min Temperature 2021-01-12 06:33:54 37.1\S\98.8 Weight 2021-01-12 06:33:54 52675\S\2186.986 02 Sat by Pulse Oximetry 2021-01-12 06:17:07 99 /min Pulse Rate 2021-01-12 06:17:07 130 /min Respiratory Rate 2021-01-12 06:17:07 18 /min Temperature 2021-01-12 06:17:07 37.1\S\98.8 Weight 2021-01-12 06:17:07 32663\S\2186.986 02 Sat by Pulse Oximetry 2021-01-12 05:57:17 99 /min Pulse Rate 2021-01-12 05:57:17 130 /min Respiratory Rate 2021-01-12 05:57:17 18 /min Temperature 2021-01-12 05:57:17 37.1\S\98.8 Weight 2021-01-12 05:57:17 91250\S\2186.986 02 Sat by Pulse Oximetry 2021-01-12 05:55:15 99 /min Pulse Rate 2021-01-12 05:55:15 130 /min Respiratory Rate 2021-01-12 05:55:15 18 /min Temperature 2021-01-12 05:55:15 37.1\S\98.8 Weight 2021-01-12 05:55:15 79130\S\2186.986 WEIGHT 2021-01-12 05:52:00 62 kg Respiratory 2021-01-08 10:42:16 No respiratory distress /min 02 Sat by Pulse Oximetry 2021-01-08 10:42:16 99 /min Body Mass Index 2021-01-08 10:42:16 20.5 Height 2021-01-08 10:42:16 187.96\S\74 Pulse Rate 2021-01-08 10:42:16 96 /min Respiratory Rate 2021-01-08 10:42:16 20 /min Temperature 2021-01-08 10:42:16 36.9\S\98.4 Weight 2021-01-08 10:42:16 14575.779\S\2560 Weight Measurement Method 2021-01-08 10:42:16 Estimated by Patient Respiratory 2021-01-08 08:51:45 No respiratory distress /min 02 Sat by Pulse Oximetry 2021-01-08 08:51:45 99 /min Body Mass Index 2021-01-08 08:51:45 20.5 Height 2021-01-08 08:51:45 187.96\S\74 Pulse Rate 2021-01-08 08:51:45 96 /min Respiratory Rate 2021-01-08 08:51:45 20 /min Temperature 2021-01-08 08:51:45 36.9\S\98.4 Weight 2021-01-08 08:51:45 14198.779\S\2560 Weight Measurement Method 2021-01-08 08:51:45 Estimated by Patient Respiratory 2021-01-06 14:40:40 No respiratory distress /min 02 Sat by Pulse Oximetry 2021-01-06 14:40:40 99 /min Body Mass Index 2021-01-06 14:40:40 20.5 Height 2021-01-06 14:40:40 187.96\S\74 Pulse Rate 2021-01-06 14:40:40 96 /min Respiratory Rate 2021-01-06 14:40:40 20 /min Temperature 2021-01-06 14:40:40 36.9\S\98.4 Weight 2021-01-06 14:40:40 96500.779\S\2560 Weight Measurement Method 2021-01-06 14:40:40 Estimated by Patient Respiratory 2021-01-06 14:33:59 No respiratory distress /min 02 Sat by Pulse Oximetry 2021-01-06 14:33:59 99 /min Body Mass Index 2021-01-06 14:33:59 20.5 Height 2021-01-06 14:33:59 187.96\S\74 Pulse Rate 2021-01-06 14:33:59 96 /min Respiratory Rate 2021-01-06 14:33:59 20 /min Temperature 2021-01-06 14:33:59 36.9\S\98.4 Weight 2021-01-06 14:33:59 56815.779\S\2560 Weight Measurement Method 2021-01-06 14:33:59 Estimated by Patient Respiratory 2021-01-06 14:02:09 No respiratory distress /min 02 Sat by Pulse Oximetry 2021-01-06 14:02:09 99 /min Body Mass Index 2021-01-06 14:02:09 20.5 Height 2021-01-06 14:02:09 187.96\S\74 Pulse Rate 2021-01-06 14:02:09 96 /min Respiratory Rate 2021-01-06 14:02:09 20 /min Temperature 2021-01-06 14:02:09 36.9\S\98.4 Weight 2021-01-06 14:02:09 09936.779\S\2560 Weight Measurement Method 2021-01-06 14:02:09 Estimated by Patient Respiratory 2021-01-06 13:52:46 No respiratory distress /min 02 Sat by Pulse Oximetry 2021-01-06 13:52:46 99 /min Body Mass Index 2021-01-06 13:52:46 20.5 Height 2021-01-06 13:52:46 187.96\S\74 Pulse Rate 2021-01-06 13:52:46 96 /min Respiratory Rate 2021-01-06 13:52:46 20 /min Temperature 2021-01-06 13:52:46 36.9\S\98.4 Weight 2021-01-06 13:52:46 34369.779\S\2560 Weight Measurement Method 2021-01-06 13:52:46 Estimated by Patient 02 Sat by Pulse Oximetry 2021-01-06 13:47:08 99 /min Body Mass Index 2021-01-06 13:47:08 20.5 Height 2021-01-06 13:47:08 187.96\S\74 Pulse Rate 2021-01-06 13:47:08 96 /min Respiratory Rate 2021-01-06 13:47:08 20 /min Temperature 2021-01-06 13:47:08 36.9\S\98.4 Weight 2021-01-06 13:47:08 81573.779\S\2560 Weight Measurement Method 2021-01-06 13:47:08 Estimated by Patient Respiratory 2021-01-06 13:47:08 No respiratory distress /min 02 Sat by Pulse Oximetry 2021-01-06 13:13:47 99 /min Body Mass Index 2021-01-06 13:13:47 20.5 Height 2021-01-06 13:13:47 187.96\S\74 Pulse Rate 2021-01-06 13:13:47 96 /min Respiratory Rate 2021-01-06 13:13:47 20 /min Temperature 2021-01-06 13:13:47 36.9\S\98.4 Weight 2021-01-06 13:13:47 19792.779\S\2560 Weight Measurement Method 2021-01-06 13:13:47 Estimated by Patient 02 Sat by Pulse Oximetry 2021-01-06 13:04:01 99 /min Body Mass Index 2021-01-06 13:04:01 20.5 Height 2021-01-06 13:04:01 187.96\S\74 Pulse Rate 2021-01-06 13:04:01 96 /min Respiratory Rate 2021-01-06 13:04:01 20 /min Temperature 2021-01-06 13:04:01 36.9\S\98.4 Weight 2021-01-06 13:04:01 39835.779\S\2560 Weight Measurement Method 2021-01-06 13:04:01 Estimated by Patient WEIGHT 2021-01-06 12:58:00 72.760194 kg HEIGHT 2021-01-06 12:58:00 187.96 cm Procedures Procedure Date / Time Performed Performing Clinician [facility] [place] Level 2007-11-25 00:00:00 Talya Webb Plan of Care Planned Activity Planned Date Details Comments Source Future Scheduled Test Plan Of Treatment [facility] Entries excluded/not Psychia tric Ctr available [code = Plan Of Treatment Entries excluded/not available] Encounters Start End Encounter Admission Attending Care Care Encounter Source Date/Time Date/Time Type Type Clinicians Facility Department ID 2021-04-03 Outpatient KIMBERLEY, [facility] [id number] [facility] 14:33:27 GIACOMO 2021-04-25 2021-04-25 Emergency [facility] [id number] [place] 11:07:00 21:23:00 [facility] 2021-04-25 2021-04-25 Emergency [facility] [id number] [place] 14:47:02 14:47:02 [facility] 2021-04-24 2021-04-24 [facility] [id number] [place] 15:42:34 23:59:00 SUJATH [facility] 2021-04-18 2021-04-24 Inpatient [facility] [id number] [place] 12:03:00 02:16:00 Health 2021-04-02 2021-04-02 [id number] [place] 10:39:05 23[facility]59[facility] 2021-04-02 2021-04-02 Emergency TEJAL ABBOTT [facility] [id number] [place] 03:44:00 09:33:00 Health 2021-04-01 2021-04-01 Outpatient SCOOBYLELO, [facility] [id number] [place] 14:26:45 23:59:[facility] 2021-03-19 2021-03-20 Emergency [facility] [id number] [place] 18:30:00 01:33:00 [facility] 2021-03-19 2021-03-19 Emergency VANE, [facility] [id number] [place] 09:53:00 15:43:00 [facility] 2021-03-19 2021-03-19 Emergency REYNA, [facility] [id number] [place] 08:03:02 08:03:02 [facility] 2021-03-19 2021-03-19 Emergency REYNA, [facility] [id number] [place] 06:15:54 06:15:54 [facility] 2021-02-21 2021-03-05 Inpatient [facility] [id number] [place] 01:00:00 23:00:00 [facility] 2021-02-26 2021-02-26 Outpatient KIERRA, [facility] [id number] [facility] 00:00:00 00:00:00 [facility] 2021-02-19 2021-02-20 Emergency WINIFRED, [facility] [id number] [place] 22:44:00 12:50:00 [facility] 2021-02-19 2021-02-19 Outpatient [facility] [id number] [place] 00:00:00 00:00:00 [facility] 2021-02-18 2021-02-18 [facility] [id number] [place] 00:00:00 00:00:00 [facility] 2021-02-17 2021-02-17 Outpatient [facility] [id number] [facility] 00:00:00 00:00:00 2021-02-14 2021-02-14 Outpatient AMANUEL, [facility] [id number] [place] 00:00:00 00:00:00 JORGE [facility] 2021-02-06 2021-02-06 Emergency REINA, [facility] [id number] [place] 12:08:00 12:21:00 [facility] 2021-01-29 2021-01-29 Outpatient SIERRA, TERRENCE [facility] [id number] [place] 00:00:00 00:00:00 [facility] 2021-01-21 2021-01-21 Emergency MARC VALERIO [facility] [id number] [place] 04:58:00 18:11:00 [facility] 2021-01-20 2021-01-21 [facility] [id number] [place] 16:21:00 03:11:00 ASA Malagon 2021-01-16 2021-01-17 [facility] [id number] [place] 23:04:00 04:08:00 PRIYANKA [facility] 2021-01-16 2021-01-16 [facility] [id number] [place] 13:14:00 13:43:00 [facility] 2021-01-15 2021-01-15 Inpatient Andrews, 1 [facility]-28- [id number] [place] 11:13:00 13:43:00 Sunshine Michaels 77 [place] Psychia tric [facility] 2021-01-11 2021-01-11 [facility] [id number] [place] 20:20:00 20:37:[address] [facility] 2021-01-11 2021-01-11 Emergency [facility] [id number] [place] 13:45:00 16:43:00 [facility] 2021-01-10 2021-01-10 Emergency [facility] [id number] [place] 12:47:00 18:59:00 [facility] 2007-11-13 2007-11-29 Inpatient Jon, 1 [facility]-74- [id number] [place] 17:50:00 06:00:00 Talya A A 85 [place] Psychia tric [facility] 2007-10-22 2007-11-02 Inpatient MaribelVickilaura 1 [facility]2E-84- [id number] [place] 11:30:00 12:00:00 [place] [facility] [place] [facility] 2005-01-30 2005-02-11 Inpatient Gummattira, 1 [facility]-75- [id number] [place] 09:49:00 10:29:00 Geni A [facility] 2005-01-13 2005-01-22 Recurring Perry, [id number] [place] 10:16:00 09:55:00 Outpt [facility] ty Psychia tric [facility] 2003-10-29 2003-11-07 Inpatient Luis Manuel López 1 [facility]-3E-79- [id number] [place] 20:58:00 13:45:00 B 89 [facility] Psychia tric [facility] 2001-12-28 2002-01-10 Inpatient Luis Manuel López 1 [facility]3E-61- [id number] [place] 11:09:00 17:00:00 A 16 [facility] Psychia tric [facility] 2001-08-05 2001-08-05 Recurring Pulido, [id number] [place] 09:00:00 14:58:00 Outpt Osmani 03 [facility] Psychia tric [facility] 2001-07-06 2001-08-05 Recurring Pulido, 1 [facility] [id number] [place] 12:26:00 09:00:00 Outpt Osmani 27 [facility] Psychia tric [facility] 2001-06-15 2001-07-05 Inpatient Jon, 1 [facility]-3B-77- [id number] [place] 17:02:00 14:03:00 Talya Lambert 07 Co unt Psychia tric [facility] 1999-09-18 1999-10-02 Inpatient Derrell, 1 [facility]-2C-14- [id number] [place] 15:54:00 10:26:00 Johnny Lambert 95 [facility] Psychia tric [facility] 1995-02-15 1995-02-23 Inpatient Steven Barros 1 [facility]-21- [id number] [place] 15:00:00 13:00:00 A 01 [facility] Psychia tric [facility] 1987-08-06 1987-09-17 Inpatient RAMONA, 1 [facility]-1D-29- [id number] [place] 09:00:00 16:00:00 GENE L B 79 [facility] Psychia tric Ctr Results Test Description Test Time Test Comments Results Result Comments Source CT/NG, NAAT, URINE 2022-03-19 19:26:14 Test Item Value Reference Range Interpretation Comme nts GONORRHEA, NAAT NEGATIVE NEGATIVE IMPORTANT NOTICE: SEE ANNOUNCEMENT (test code = [place] [address]) [email or web address] Note: Assay methodolo gy is nucleic acid amplification by transcriptio n mediated amplification (TMA) utilizing the Aptima Combo 2 Assay. CHLAMYDIA, NAAT NEGATIVE NEGATIVE IMPORTANT NOTICE: SEE ANNOUNCEMENT (test code = [place] [address]) [email or web address] Note: Assay methodolo gy is nucleic acid amplification by transcriptio n mediated amplification (TMA) utilizing the Aptima Combo 2 Assay. COMPREHENSIVE METABOLIC [id number] 04:52:14 Test Item Value Reference Range Interpretation Comments GLUCOSE (test code = 114 MG/DL 70-99 H 2216) BUN (test code = 17 MG/DL 6-20 2207) CREATININE (test 0.79 MG/DL 0.80-1.40 L code = 2214) eGFR (2020 CKD-EPI) 110 >60 (test code = 75733) ML/MIN/1.73 CALC BUN/CREAT (test 22 RATIO 6-28 code = 2235) SODIUM (test code = 143 MEQ/L 798-881 8529) POTASSIUM (test code 4.5 MEQ/L 3.5-5.4 = 2227) CHLORIDE (test code 104 MEQ/L 95-107 = 2214) CARBON DIOXIDE (test 26 MEQ/L 19-31 code = 220) CALCIUM (test code = 9.5 MG/DL 8.5-10.5 2208) PROTEIN, TOTAL (test 7.2 G/DL 6.1-8.3 code = 222) ALBUMIN (test code = 4.3 G/DL 3.5-5.2 2200) CALC GLOBULIN (test 2.9 G/DL 1.9-3.7 code = 2240) CALC A/G RATIO (test 1.5 RATIO 1.0-2.6 code = 2234) BILIRUBIN, TOTAL 0.2 MG/DL See_Comment [Automated message] (test code = 2207) The syste m which generated this result transmit julien reference range : <=1.2. The refe rence range was not u sed to interpret th is result as normal/abnormal . ALKALINE PHOSPHATASE 89 U/L 40-118 (test code = 2204) AST (test code = 19 U/L 9-50 2217) ALT (test code = 15 U/L 5-50 2218) HIV 1/2 4TH GEN, RFLX [id number] 04:00:06 Test Item Value Reference Range Interpretation Comments HIV 1/2 4TH GEN, RFLX CONF (test NON-REACTIVE NON-REACTIVE code = 3514) HEMOGLOBIN [id number] 03:52:44 Test Item Value Reference Range Interpretation Comments HEMOGLOBIN A1c (test 6.4 % 4.2-5.6 H UNLESS OTHERWISE code = 99767) INDICATED, ALL TESTING PERFORMED [facility], [facility] [place] [address] 4 LABORATORY DIRE CTOR: AVILA COATS M.D. CLIA NUMBER [id number] [place] [id number] [place] [id number] 12:19:28 Test Item Value Reference Range Interpretation Comments [place] Level (test 0.6 mmol/L Detectio n Limit = 0.1 code = LithiumLevel) <0.1 indicates None Detected [id number] 14:20:51 Test Item Value Reference Range Interpretation Comments Specific Barnum (test 1.011 code = SpecificGravity) pH (test [...] MicroscopicExam) follows if indicated. Thyroid Panel with [id number] 11:22:58 Test Item Value Reference Range Interpretation Comments TSH, High Sensitivity, Serum 0.427 {uIU/mL} (test code = TSH,HighSensitivity,Serum) Thyroxine (test code = 5.4 ug/dL Thyroxine) T3 Uptake (test code = 37 % D1Vdahow) Free Thyroxine Index (test 2.0 code = FreeThyroxineIndex) Urine Microscopic [id number] 13:09:38 Test Item Value Reference Range Interpretation Comments WBC/HPF (test code = WBC/HPF) 0-5 RBC/HPF (test code = RBC/HPF) 0-3 Epithelial Cells (non-renal) 0-10 (test code = EpithelialCells(non-renal)) Bacteria (test code = Bacteria) None seen [id number] 07:30:07 Test Item Value Reference Range Interpretation Comments Specific Barnum (test 1.012 code = SpecificGravity) pH (test [...] follows if indicated. Drug Screen, Urine # [id number] 12:19:53 Test Item Value Reference Interpretation Comments [...] the clinicalmanagement of patients in certain situations. Forworkplace drug testing programs, preliminary positivefindings should always be confirmed by an alternativemethod. Some uugf-kem-vjfyriu medications, as well asadulterants, may cause inaccurate results. Screen Onlytesting does not meet the College of Cypriot PathologistsForensic Urine Drug Testing Program require-ments as aforensic urine drug test for workplace testing. Allclients must ensure that their testing program conformsto applicable state and federal laws and employmentagreements. TSH, High Sensitivity, [id number] 13:09:40 Test Item Value Reference Range Interpretation Comments TSH, High Sensitivity, Serum 0.339 {uIU/mL} (test code = TSH,HighSensitivity,Serum) [id number] 13:09:39 Test Item Value Reference Range Interpretation Comments Specific Barnum (test 1.010 code = SpecificGravity) pH (test [...] follows if indicated. CBC w/ Diff w/ [id number] 12:10:49 Test Item Value Reference Range Interpretation [...] 0.0 {x10E3/uL} code = Basophils(Absolute)) Comprehensive Metabolic [id number] 12:10:49 Test Item Value Reference Range Interpretation [...] code = ALT) 38 {IU/L} Valproic Acid [id number] 17:06:08 Test Item Value Reference Range Interpretation Comments Valproic Acid Level 74 ug/mL Toxicity may occur at (test code = levels of 100-5 00. ValproicAcidLevel) Measureme nts of free unbou nd valproic acid m ay improve the ass ess- ment of clinical respon se. . Detecti on Limit = 4 Valproic Acid [id number] 16:33:03 Test Item Value Reference Range Interpretation Comments Valproic Acid Level 52 ug/mL Toxicity may occur at (test code = levels of 100-5 00. ValproicAcidLevel) Measureme nts of free unbou nd valproic acid m ay improve the ass ess- ment o f clinical respon se. . Detecti on Limit = 4 TSH, High Sensitivity, [id number] 16:32:09 Test Item Value Reference Range Interpretation Comments TSH, High Sensitivity, Serum 3.057 {uIU/mL} (test code = TSH,HighSensitivity,Serum) Drug Screen, Urine # [id number] 16:31:52 Test Item Value Reference Range Interpretation [...] always be confirmed by an alternative method.Some zgkf-url-wltluvy medications, as well as adulterants, may causeinaccurate results. Screen Only testing does not meet the College ofAmerican Pathologists Forensic Urine Drug Testing Program require-ments as a forensic urine drug test for workplace testing. Allclients must ensure that their testing program conforms to applicablestate and federal laws and employment agreements. Comprehensive Metabolic [id number] 16:34:42 Test Item Value Reference Range Interpretation [...] ALT) 35 {IU/L} CBC w/ Diff w/ [id number] 16:34:41 Test Item Value Reference Range Interpretation [...] 0.0 {x10E3/uL} code = Basophils(Absolute)) Valproic Acid [id number] 16:34:30 Test Item Value Reference Range Interpretation Comments Valproic Acid Level 40 ug/mL Toxicity may occur at (test code = levels of 100-5 00. ValproicAcidLevel) Measureme nts of free unbou nd valproic acid m ay improve the ass ess- ment o f clinical respon se. . Detecti on Limit = 4 [id number] 16:33:20 Test Item Value Reference Range Interpretation Comments Specific Barnum (test 1.018 code = SpecificGravity) pH (test [...] = MicroscopicExam) follows if indicated. Comprehensive Metabolic [id number] 10:35:42 Test Item Value Reference Range Interpretation [...] = 13 {IU/L} ALT) TSH, High Sensitivity, [id number] 10:35:42 Test Item Value Reference Range Interpretation Comments TSH, High Sensitivity, Serum 1.058 {uIU/mL} (test code = TSH,HighSensitivity,Serum) CBC w/ Diff w/ [id number] 10:35:41 Test Item Value Reference Range Interpretation [...] {X 10-3/uL} code = Basophils(Absolute)) Drug Screen, [id number] 10:35:36 Test Item Value Reference Interpretation Comments [...] always beconfirmed by an alternative method. Some oubh-wen-azitifk medications, as well as adulterants, maycause inaccurate results. Screen Only testing doesnot meet the College of [employer] Pathologists For-ensic Urine Drug Testing Program requirements as aforensic urine drug test for workplace testing. Allclients must ensure that their testing programconforms to applicable state and federal laws andemployment agreements. . [id number] 10:35:34 Test Item Value Reference Range Interpretation Comments Specific Barnum (test 1.007 code = SpecificGravity) pH (test [...]
[2022-03-23] MEDS ORDERED: NA CHLORIDE 0.9% 1,000 ML ONE (21:14)
[2022-03-23] MEDS ORDERED: ONDANSETRON 4 MG/2 ML VIAL ONE (21:14)
[2022-03-23 23:49] LABS: Albumin 4.2 g/dL (3.4-5.0); Bilirubin Total 0.5 mg/dL (0.2-1.0); Potassium 3.8 mmol/L (3.5-5.1); Protein, Total 8.6 g/dL (6.4-8.2)
[2022-03-24] MEDS ORDERED: MORPHINE 4 MG/ML SYR ONE (00:42)
[2022-03-24 00:47] LABS: Urine Blood Negative (Negative); Urine Glucose Negative (Negative); Urine Protein Negative (Negative); Urine pH 6.5 (5.0-7.0)
--- NOTE | 2022-03-24 01:02 | EDPHYS ---
Physician Documentation [facility] Name: Bob Cuenca Age: 47 yrs Sex: Male : 1975 Arrival Date: 03/23/2022 Time: 20:47 Bed 26 Private MD: ED Physician Ronnell Kincaid HPI: 03/24 00:00 This 47 yrs old Male presents to ER via EMS with complaints of can't urinate, weak all rn over. 00:00 The patient presents with urinary symptoms, retention, unable to void. Onset: The rn symptoms/episode began/occurred today. Modifying factors: The symptoms are alleviated by nothing, the symptoms are aggravated by nothing. Associated signs and symptoms: Pertinent positives: constipation, nausea. 00:01 Severity of symptoms: At their worst the symptoms were moderate, in the emergency rn department the symptoms are unchanged. The patient has experienced similar episodes in the past. The patient has not recently seen a physician. Pt reports can't urinate, onset today, states "knows my body" and has had urinary retention in past requiring ortiz. Reports generalized weakness for days, fatigue, nausea, dry mouth. Reports drinking water. . Historical: - Allergies: 03/23 21:45 No Known Allergies; ag7 - Home Meds: 21:45 gabapentin oral [Active]; Lisinopril Oral [Active]; quetiapine oral [Active]; ag7 - Immunization history:: Adult Immunizations up to date, Client reports receiving the 2nd dose of the Covid vaccine, Flu vaccine is not up to date. Patient has never been vaccinated. - Social history:: Smoking status: Patient reports the use of cigarette tobacco products, unknown amount. - Family history:: not pertinent. - Hospitalizations: : No recent hospitalization is reported. ROS: 03/24 00:01 Constitutional: Negative for fever, chills, and weight loss, Eyes: Negative for injury, rn pain, redness, and discharge, Cardiovascular: Negative for chest pain, palpitations, and edema, Respiratory: Negative for shortness of breath, cough, wheezing, and pleuritic chest pain, Abdomen/GI: + nausea, negative for abd pain, negative for diarrhea Back: Negative for injury and pain, : + unable to urinate MS/Extremity: Negative for injury and deformity, Skin: Negative for injury, rash, and discoloration, Neuro: Negative for numbness, tingling, and seizure. Exam: 00:01 Constitutional: This is a well developed, well nourished patient who is awake, alert, rn and in no acute distress, rambling and agitated, uncooperative. Head/Face: Normocephalic, atraumatic. Eyes: Pupils equal round and reactive to light, extra-ocular motions intact. ENT: Dry MM Neck: Trachea midline, no thyromegaly or masses palpated, and no cervical lymphadenopathy. Supple, full range of motion without nuchal rigidity, or vertebral point tenderness. No Meningismus. Cardiovascular: tachcyardic, regular Respiratory: Speaking full sentences, unable to interrupt him Abdomen/GI: soft, non-tender, non-distended Skin: Warm, dry, no cellulitis MS/ Extremity: Pulses equal, no cyanosis. Neurovascular intact. Full, normal range of motion. Equal circumference. Neuro: Awake and alert, GCS 15, oriented to person, place, time, and situation. Cranial nerves II-XII grossly intact. Motor strength 5/5 in all extremities. Sensory grossly intact. Cerebellar exam normal. Vital Signs: 03/23 20:30 BP 124 / 88; Pulse 106; Resp 20 S; Pulse Ox 100% on R/A; Pain 5/10; ag7 20:32 BP 124 / 88; Pulse 106; Resp 20 S; Temp 98.2(T); Pulse Ox 100% on R/A; Weight 78.47 kg; ag7 Height 6 ft. 1 in. (185.42 cm); Pain 10/10; 20:45 BP 144 / 117; Pulse 114; Resp 18 S; Pulse Ox 100% on R/A; Pain 5/10; ag7 22:00 BP 149 / 92; Pulse 100; Resp 17 S; Pulse Ox 100% on R/A; Pain 5/10; ag7 03/24 01:24 Pain 5/10; ag7 03/23 20:32 Body Mass Index 22.82 (78.47 kg, 185.42 cm) ag7 MDM: 03/23 20:47 Patient medically screened. rn 03/24 00:39 Refusal of service: The patient/guardian displays adequate decision making capability rn and despite a detailed discussion of alternatives, benefits, risks, and consequences refuses: CT Scan. 00:39 ED course: Pt refusing CT scan. Initially said if he got morphine he would get scan, rn then given morphine and refuses CT. Patient states "wants to be doped the fuck up for [my] ride to [place]". 01:00 Differential diagnosis: nonspecific abdominal pain, UTI, urinary retention, urethritis, rn prostatomegaly. Data reviewed: vital signs, nurses notes, lab test result(s), and as a result, I will discharge patient. Counseling: I had a detailed discussion with the patient and/or guardian regarding: the historical points, exam findings, and any diagnostic results supporting the discharge/admit diagnosis, lab results, the need for outpatient follow up, to return to the emergency department if symptoms worsen or persist or if there are any questions or concerns that arise at home. Response to treatment: the patient's symptoms have markedly improved after treatment, and as a result, I will discharge patient. Special discussion: I discussed with the patient/guardian in detail that at this point there is no indication for admission to the hospital. It is understood, however, that if the symptoms persist or worsen the patient needs to return immediately for re-evaluation. Based on the history and exam findings, there is no indication for further emergent testing or inpatient evaluation. I discussed with the patient/guardian the need to see the urologist for further evaluation of the symptoms. ED course: Pt markedly improved after catheterization, no evidence of infection, UA neg nitrates and leukocytes, stable vitals, still refuses imaging, understands risks of not getting imaging, will dc home with return precautions. . 01:40 ED course: Pt refusing to leave, states doesn't have ride, insists on getting "doped rn up" before leaving. Very agitated with nursing, verbally abusive, not physically at this point, security called. Police was here earlier for another patient and spoke with patient when was throwing things in room earlier. . 03/23 20:48 Order name: CMP; Complete Time: 00: rn 03/23 20:48 Order name: Lipase; Complete Time: 00: rn 03/24 00:39 Order name: Urine Microscopic Only rn 03/24 00:47 Order name: Urine Dipstick-Ancillary; Complete Time: 00:59 EDMS 03/23 20:48 Order name: IV Saline Lock; Complete Time: 21:16 rn 03/23 20:48 Order name: Labs collected and sent; Complete Time: 21:49 rn 03/23 20:48 Order name: Urine Dipstick-Ancillary (obtain specimen); Complete Time: 01:29 rn 03/23 20:48 Order name: Bladder Scanner; Complete Time: 23:23 rn 03/23 21:27 Order name: Misc. Order: recollect green top-hemolyzed; Complete Time: 21:49 bb 03/23 23:34 Order name: Ortiz; Complete Time: 00:11 rn Administered Medications: 03/23 21:17 Drug: NS 0.9% 1000 ml Route: IV; Rate: 1 bolus; Site: right antecubital; as6 21:49 Follow up: IV Status: Completed infusion; IV Intake: 1000ml ag7 21:17 Drug: Zofran (Ondansetron) 4 mg Route: IVP; Site: right antecubital; as6 21:47 Follow up: Response: No adverse reaction 7 03/24 00:42 Drug: morphine 4 mg {Note: RASS 0.} Route: IVP; Site: right antecubital; ag7 01:24 Follow up: Pain 5/10 Adult; Response: No adverse reaction; Pain is decreased ag7 Disposition Summary: 03/24/22 01:02 Discharge Ordered Location: Home rn Problem: new rn Symptoms: have improved rn Condition: Stable rn Diagnosis - Retention of urine, unspecified rn Followup: rn - With: Private Physician - When: As needed - Reason: Recheck today's complaints, Re-evaluation by your physician Discharge Instructions: - Discharge Summary Sheet rn - Indwelling Urinary Catheter Care, Adult rn - Acute Urinary Retention, Male rn Forms: - Medication Reconciliation Form rn - Thank You Letter rn - Antibiotic rn clinical documentation specialist - Prescription Opioid Use rn Prescriptions: - Cipro 500 mg Oral Tablet - take 1 tablet by ORAL route every 12 hours for 10 days; 20 tablet; Refills: 0, rn Product Selection Permitted Signatures: Dispatcher [employer] Angélica Castro RN RN bb Ronnell Kincaid MD MD rn Slawson, Ashby, RN RN as6 Lina Walton, RN RN ag7 Corrections: (The following items were deleted from the chart) 03/23 21:46 21:45 PMHx: Bipolar disorder; ag7 ag7 21:46 21:45 PMHx: ADD/ADHD; 7 7 21:45 PMHx: Anxiety; [place] [id number] 03/24 01:30 03/23 20:48 Abdomen Pelvis W Con+CT.RAD.BRZ ordered. EDMS EDMS
--- NOTE | 2022-03-24 01:02 | ER ---
Nurse's Notes [facility] Name: Bob Cuenca Age: 47 yrs Sex: Male : 1975 Arrival Date: 03/23/2022 Time: 20:47 Bed 26 Private MD: Diagnosis: Retention of urine, unspecified Presentation: 03/23 20:32 Chief complaint: EMS states: "Patient c/o generalized pain, COVID, difficulty ag7 breathing, and cannot urinate". Coronavirus screen: Client denies travel out of the [place] in the last 14 days. At this time, the client does not indicate any symptoms associated with coronavirus-19. Ebola Screen: Patient negative for fever greater than or equal to 101.5 degrees Fahrenheit, and additional compatible Ebola Virus Disease symptoms Patient denies exposure to infectious person. Patient denies travel to an Ebola-affected area in the 21 days before illness onset. Initial Sepsis Screen: Does the patient meet any 2 criteria? No. Patient's initial sepsis screen is negative. Does the patient have a suspected source of infection? No. Patient's initial sepsis screen is negative. Risk Assessment: Do you want to hurt yourself or someone else? Patient reports no desire to harm self or others. Onset of symptoms was March 23, 2022. 20:32 Method Of Arrival: EMS: [facility] 20:32 Acuity: MALIA 2 ag7 Triage Assessment: 20:33 General: Appears slender, unkempt, Behavior is anxious, fussy, restless. Pain: ag7 Complains of pain in generalized Pain currently is 10 out of 10 on a pain scale. Quality of pain is described as aching, Pain began suddenly, Is continuous. 20:33 Respiratory: Airway is patent Trachea midline Respiratory effort is even, unlabored, ag7 Respiratory pattern is regular, symmetrical, Sputum is thin, clear small amount. Historical: - Allergies: 21:45 No Known Allergies; ag7 - Home Meds: 21:45 gabapentin oral [Active]; Lisinopril Oral [Active]; quetiapine oral [Active]; ag7 - Immunization history:: Adult Immunizations up to date, Client reports receiving the 2nd dose of the Covid vaccine, Flu vaccine is not up to date. Patient has never been vaccinated. - Social history:: Smoking status: Patient reports the use of cigarette tobacco products, unknown amount. - Family history:: not pertinent. - Hospitalizations: : No recent hospitalization is reported. Screenin:47 Abuse screen: Denies threats or abuse. Nutritional screening: No deficits noted. ag7 Tuberculosis screening: No symptoms or risk factors identified. Fall Risk No fall in past 12 months (0 pts). No secondary diagnosis (0 pts). IV access (20 points). Ambulatory Aid- None/Bed Rest/Nurse Assist (0 pts). Gait- Normal/Bed Rest/Wheelchair (0 pts) Mental Status- Oriented to own ability (0 pts). Total Eric Fall Scale indicates No Risk (0-24 pts). Assessment: 21:46 General: see triage. ag7 22:46 Reassessment: Patient and/or family updated on plan of care and expected duration. Pain ag7 level reassessed. Patient is alert, oriented x 3, equal unlabored respirations, skin warm/dry/pink. Patient is anxious, flight of ideas, complaining of wanting a mishra catheter, profane language, loud talking. 23:23 Reassessment: bladder scan 592 ml. ag7 23:39 Reassessment: Patient and/or family updated on plan of care and expected duration. Pain ag7 level reassessed. The patient continue to throw items and personal belongings in his room, police dispatcher at the bedside, charge nurse at the bedside, aware. 23:46 Reassessment: pt creating a disturbance talking loudly and throwing full water bottles bb at the glass doors, pt states he needs "a bunch of prescriptions" because he is indigent and he will only cooperate if we do what he wants. [employer] at bedside advising pt to cooperate. Attempted to cath pt as ordered but pt on phone talking to his friend and refused catheter at this time. 03/24 00:46 Reassessment: Patient and/or family updated on plan of care and expected duration. Pain ag7 level reassessed. Patient is alert, oriented x 3, equal unlabored respirations, skin warm/dry/pink. Pain: Complains of pain in pelvis Pain does not radiate. Pain currently is 10 out of 10 on a pain scale. Quality of pain is described as aching, Pain began suddenly, Is continuous. 01:00 Reassessment: Patient refused CT scan, MD Kincaid aware. ag7 01:37 Reassessment: GIVE OKAY FOR PATIENT D/C WITH MISHRA CATHETER. ag7 01:49 Reassessment: The patient is refusing discharge, throwing bottles of water, throwing ag7 bottles at the glass door and out in the hallway, Charge nurse aware and medical doctor Sanjiv aware. Vital Signs: 03/23 20:30 BP 124 / 88; Pulse 106; Resp 20 S; Pulse Ox 100% on R/A; Pain 5/10; ag7 20:32 BP 124 / 88; Pulse 106; Resp 20 S; Temp 98.2(T); Pulse Ox 100% on R/A; Weight 78.47 kg; ag7 Height 6 ft. 1 in. (185.42 cm); Pain 10/10; 20:45 BP 144 / 117; Pulse 114; Resp 18 S; Pulse Ox 100% on R/A; Pain 5/10; ag7 22:00 BP 149 / 92; Pulse 100; Resp 17 S; Pulse Ox 100% on R/A; Pain 5/10; ag7 03/24 01:24 Pain 5/10; ag7 03/23 20:32 Body Mass Index 22.82 (78.47 kg, 185.42 cm) ag7 ED Course: 03/23 20:47 Patient arrived in ED. rn 20:47 Ronnell Kincaid MD is Attending Physician. rn 20:49 Lina Walton, REE is Primary Nurse. ag7 21:17 Inserted saline lock: 20 gauge in right antecubital area, using aseptic technique. as6 Blood collected. 21:45 Triage completed. ag7 22:47 No provider procedures requiring assistance completed. ag7 22:47 Arm band placed on. ag7 22:48 Patient has correct armband on for positive identification. Bed in low position. Call [facility] light in reach. 03/24 00:11 Mishra cath inserted, using sterile technique, 18 Fr., by ky, balloon inflated, to bb gravity drainage, Patient tolerated well. 00:49 Urine Microscopic Only Sent. ag7 01:52 IV discontinued, intact, bleeding controlled, No redness/swelling at site. Pressure ag7 dressing applied. Administered Medications: 03/23 21:17 Drug: NS 0.9% 1000 ml Route: IV; Rate: 1 bolus; Site: right antecubital; as6 21:49 Follow up: IV Status: Completed infusion; IV Intake: 1000ml ag7 21:17 Drug: Zofran (Ondansetron) 4 mg Route: IVP; Site: right antecubital; as6 21:47 Follow up: Response: No adverse reaction ag7 03/24 00:42 Drug: morphine 4 mg {Note: RASS 0.} Route: IVP; Site: right antecubital; ag7 01:24 Follow up: Pain 5/10 Adult; Response: No adverse reaction; Pain is decreased ag7 Intake: 03/23 21:49 IV: 1000ml; Total: 1000ml. ag7 03/24 01:36 IV: 1000ml; Total: 2000ml. ag7 Output: 01:36 Urine: 2000ml; Gastric: 600ml (Emesis); Total: 2600ml. ag7 Outcome: 01:02 Discharge ordered by . rn 01:52 Discharged to Law Enforcement ag7 01:52 Condition: stable 01:52 Discharge instructions given to patient, Instructed on discharge instructions, follow up and referral plans. medication usage, Demonstrated understanding of Patient is refusing d/c Prescriptions given X 1. 02:16 Patient left the ED. 7 Signatures: Angélica Carrero RN RN bb Nieto, Roman, MD MD rn Slawson, Ashby, RN RN as6 Lina Walton RN RN ag7 Corrections: (The following items were deleted from the chart) 03/23 21:46 21:45 PMHx: Bipolar disorder; 7 21:46 21:45 PMHx: ADD/ADHD; 7 7 21:46 21:45 PMHx: Anxiety; ag7 7 03/24 00:42 00:42 morphine 4 mg IVP in right antecubital 7 ag7
[2022-03-24 01:49] LABS: Urine Bacteria <20 /HPF (NONE SEEN); Urine RBC <5 /HPF (NONE SEEN)
[2022-03-24 03:52] VITALS: O2SAT 100
[2022-03-24 03:53] VITALS: BP 149/92
== END 2022-03-24 02:16 | disposition home or self-care (01) ==
LOC: ER 20:37
PROC: 0T9B70Z Drainage of Bladder with Drainage Device, Via Natural or Artificial Opening (ICD-10-PCS; principal; 2022-03-24)
DX: R33.9 Retention of urine, unspecified (principal); R53.1 Weakness; Z72.0 Tobacco use
CPT/HCPCS: 36415; 51702; 80053; 81003; 81015; 83690; 96361; 96374; 96375; 99284; J2405; J7030